=== PATIENT | female | born 1945 | race Hispanic/Latino ===

== ENCOUNTER → 2018-07-06 | Day surgery (SDC) | payer MEDICARE ==
[2018-07-02 12:32] LABS: BASOPHILS # (AUTO) 0.1 (0.0-0.1); BASOPHILS % 0.8 % (0.0-1.0); EOSINOPHILS # (AUTO) 0.6 (0.0-0.4); EOSINOPHILS % 6.9 % (0.0-6.0); HEMATOCRIT 42.5 % (34.2-44.1); HEMOGLOBIN 13.9 g/dL (12.0-16.0); LYMPHOCYTES # (AUTO) 3.7 (1.0-3.2); LYMPHOCYTES % 46.3 % (18.0-39.1); MEAN CORPUSCULAR HEMOGLOBIN 31.7 pg (28-32); MEAN CORPUSCULAR HGB CONC 32.7 g/dL (31-35); MEAN CORPUSCULAR VOLUME 96.8 fL (81-99); MONOCYTES # (AUTO) 0.7 (0.2-0.8); MONOCYTES % 8.4 % (4.4-11.3); NEUTROPHILS % 37.3 % (38.7-80.0); PLATELET COUNT 217 x10e3/uL (140-360); RED BLOOD COUNT 4.39 x10e6/uL (3.6-5.1); RED CELL DISTRIBUTION WIDTH 14.1 % (11.7-14.4)
--- NOTE | 2018-07-02 13:21 | Diagnostic Imaging Report ---
Frontal and lateral views of the chest. HISTORY: PREOP PROTOCOL COMPARISON: None available. DISCUSSION: Soft tissue attenuation partially limits sensitivity of the exam. Lungs: Mildly prominent nonspecific diffuse interstitial markings. No evidence of a consolidative pneumonia or pulmonary alveolar edema. Pleura: No pleural effusion or pneumothorax. Heart and mediastinum: The cardiomediastinal silhouette appears unremarkable. Bones: No acute osseous lesion. Partially visualized cervical spine fixation hardware and the left neck metallic surgical clips. IMPRESSION: No acute radiographic abnormality. Signed by: Dr. Leopoldo Griffith D.O., M.M.M. on 07/02/2018 1:18 PM
[~2018-07-06] MED LIST: ATENOLOL; DEXAMETHASONE SOD PHOS INJ 4 MG/ML VIAL ONE; FENTANYL CITRATE/PF 100MCG/2 ML INJ ONE; FOLIC ACID; HUMIRA SQ; KETOROLAC TROMETHAMINE 30 MG/ML VIAL ONE; LIDOCAINE HCL 2% LOCAL INJ 5 ML SDV VIAL INJ ONE; MIDAZOLAM HCL 2 MG/2 ML VIAL ONE; PREDNISONE; PROPOFOL IV EMULSION 10 MG/ML 20 ML VIAL ONE; SEVOFLURANE INHAL SOLN 250 ML PEN BTL ONE; Z.0.METHOTREXATE2.5; Z.0.ORACEA40 MG
--- OUTSIDE RECORDS SUMMARY | 2018-07-06 09:54 | XMS REPORT | Continuity of Care Document ---
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 Diagnosis 06/16/2018 Jozef Lopez Degenerative disc disease, cervical Active Problem 06/16/2018 Jozef Lopez Degenerative disc disease, lumbar Active Problem 06/16/2018 Jozef Lopez Anterolisthesis Active Problem 06/16/2018 Jozef Lopez Back pain Active Diagnosis 04/29/2018 Jozef Lopez Shoulder pain, left Active Diagnosis 11/25/2017 Jozef Lopez Skin rash Active Diagnosis 08/22/2017 Jozef Lopez Accidental fall on or from other stairs or steps Active Diagnosis 08/04/2015 Jozef Lopez Encounter for long-term use of other high-risk medications Active Diagnosis 10/19/2015 Jozef Lopez Rheumatoid arthritis of multiple sites without organ or system involvement with positive rheumatoid factor Active Diagnosis 10/19/2015 Jozef Lopez Hypothyroidism Active Diagnosis 10/18/2015 Jozef Lopez Vitamin D deficiency Active Diagnosis 10/18/2015 Jozef Lopez [facility] use of opiate analgesic Active Diagnosis 04/22/2016 Jozef Lopez Medications Medication Details Route Status Patient Instructions Ordering Provider Order Date Source Clobetasol Propionate 1 application to affected area Externally Active 0.05 % Externally Twice a day Valles 09/10/2018 Jozef Lopez Imuran as directed Orally Active 50 MG Orally once a day [place] 06/15/2018 Jozef Lopez Humira INJECT 0.8ML SUBCUTANEOUSLY EVERY 2 WEEKS NA Active 40 MG/0.8ML Suzanne 06/09/2018 Jozef Lopez PredniSONE 1 tablet Orally Active 2.5 MG Orally Once a day Lopez 03/16/2018 Jozef Lopez Plaquenil 1 tablet with food or milk Orally Active 200 MG Orally Twice a day Lopez 03/16/2018 Jozef Lopez Arava 1 tablet Orally Active 20 MG Orally Once a day Valles 03/16/2018 Jozef Jessica Gabapentin 1 capsule before bedtime Orally Active 300 MG Orally Twice a day [place] 02/16/2018 Jozef Lopez Hydrocodone-Acetaminophen 1 tablet as needed Orally Active 10- 325 MG Orally TID [place] 02/13/2018 Jozef Lopez Medrol Dose Armand as directed Orally Active 4mg Orally once a day [place] 01/14/2018 Jozef Lopez PredniSONE 1 tablet Orally Active 2.5 MG Orally Once a day [place] 11/18/2017 Jozef Lopez Folic Acid 1 tablet Orally Active 1 MG Orally Once a day Valles 11/18/2017 Jozef Lopez Plaquenil 1 tablet NA Active 200 Twice a day Valles 11/18/2017 Jozef Lopez Triamcinolone Acetonide 1 application to affected area Externally Active 0.1 % Externally Twice a day Valles 11/16/2017 Jozef Lopez Clobetasol Propionate 1 application to affected area Externally Active 0.05 % Externally Twice a day Suzanne 11/16/2017 Jozef Lopez Methotrexate take 4 tablets Orally Active 2.5 MG Orally once a week Suzanne 10/16/2017 Jozef Jessica Hydrocodone-Acetaminophen 1 tablet as needed Orally Active 5- 325 MG Orally TID [place] 09/19/2017 Jozef Lopez Triamcinolone Acetonide 1 application to affected area Externally Active 0.1 % Externally Twice a day Valles 08/20/2017 Jozef Lopez Arava 1 tablet Orally Active 20 MG Orally Once a day [place] 08/17/2017 Jozef Lopez Folic Acid 1 tablet Orally Active 1 Orally Once a day [place] 08/17/2017 Jozef Lopez PredniSONE 1 tablet with food or milk Orally Active 2.5 MG Orally Once a day Valles 08/17/2017 Jozef Lopez Plaquenil 1 tablet NA Active 200 Twice a day Valles 08/17/2017 Jozef Lopez Medrol Dose Armand as directed Orally Active 4mg Orally once a day [place] 07/20/2017 Jozefoscar Lopez Hydrocodone-Acetaminophen 1 tablet as needed Orally Active 10- 325 MG Orally tid Suzanne 07/04/2017 Jozef Lopez Hydrocodone-Acetaminophen 1 tablet as needed Orally Active 10- 325 MG Orally tid [place] 06/18/2017 Jozef Lopez Hydrocodone-Acetaminophen 1 tablet as needed Orally Active 10- 325 MG Orally tid [place] 05/16/2017 Jozef Lopez Fosamax 1 tablet Orally Active 70 MG Orally [place] 04/16/2017 Jozef Lopez Fosamax 1 tablet Orally Active 70 MG Orally once a day Valles 04/16/2017 Jozef Lopez Medrol Dose Armand as directed Orally Active 4mg Orally once a day [place]es 02/03/2017 Jozef Ordazer Hydrocodone-Acetaminophen 1 tablet as needed Orally Active 10- 325 MG Orally every 6 hrs Valles 12/31/2016 Jozef Lopez Hydrocodone-Acetaminophen 1 tablet as needed Orally Active 10- 325 MG Orally every 6 hrs Valles 11/27/2016 Jozef Ordazer Fosamax 1 tablet Orally Active 70 MG Orally Once a week Vall[place] 10/13/2016 Jozef Lopez Plaquenil 1 tablet with food or milk Orally Active 200 MG Orally Once a day [place] 10/13/2016 Jozef Lopez Folic Acid 1 tablet Orally Active 1 MG Orally Once a day [place]es 10/13/2016 Jozef Lopez Medrol Dose Armand as directed Orally Active 4mg Orally once a day [place]es 08/14/2016 Jozef Lopez Hydrocodone-Acetaminophen 1 tablet as needed Orally Active 10- 325 MG Orally every 6 hrs Valles 05/16/2016 Jozef Lopez Triamcinolone Acetonide 1 application to affected area Externally Active 0.025 % Externally Twice a day Valles 04/16/2016 Jozef Lopez Arava 1 tablet Orally Active 20 MG Orally Once a day Valles 02/19/2016 Jozef Lopez Hydrocodone-Acetaminophen 1 tablet as needed Orally Active 10- 325 MG Orally every 6 hrs Valles 02/03/2016 Jozef Lopez Hydrocodone-Acetaminophen 1 tablet as needed Orally Active 10- 325 MG Orally every 6 hrs Valles 09/07/2015 Jozef Lopez Fosamax 1 tablet Orally Active 70 MG Orally once a week Valles 07/09/2015 Jozef Lopez Humira 0.8 ml Subcutaneous Active 40 MG/0.8ML Subcutaneous q2wk Suzanne 06/18/2015 Jozef Lopez Medrol (Armand) as directed Orally Active 4 MG Orally as diercted Valles 04/05/2015 Jozef Ordazer Folic Acid 1 tablet Orally Active 1 Orally Once a day [place] Jozef Ordazer Arava 1 tablet Orally Active 20 MG Orally Once a day [place] Jozef Lopez Atenolol 1/2 tablet Orally Active 25 MG Orally Once a day [place] Jozef Ordazer Plaquenil 1 tablet with food or milk Orally Active 200 MG Orally Twice a day [place] Jozef Lopez Humira INJECT 0.8ML SUBCUTANEOUSLY EVERY 2 WEEKS NA Active 40 every two weeks [place] Jozef Lopez Amoxicillin 1 capsule Orally Active 500 MG Orally every 12 hrs [place] Jozef Lopez Aspirin 1 tablet Orally Active 81 MG Orally Once a day [place] Joezf Lopez PredniSONE 1 tablet with food or milk Orally Active 2.5 MG Orally Once a day [place] Jozef Lopez Medrol Dose Armand as directed Orally Active 4mg Orally once a day [place] Jozef Lopez Atenolol 1/2 tablet Orally Active 25 MG Orally Once a day [place] Jozef Lopez Aspirin 1 tablet Orally Active 81 MG Orally Once a day [place] Jozef Lopez Hydrocodone-Acetaminophen 1 tablet as needed Orally Active 10- 325 MG Orally every 6 hrs [place] Jozef Lopez Hydrocodone-Acetaminophen 1 tablet as needed Orally Active 5- 325 MG Orally TID [place] Jozef Lopez PredniSONE 1 tablet Orally Active 2.5 MG Orally Once a day [place] Jozef Lopez Folic Acid 1 tablet Orally Active 1 MG Orally Once a day [place] Jozef Lopez Hydrocodone-Acetaminophen 1 tablet as needed Orally Active 10- 325 MG Orally TID [place] Jozef Lopez Fosamax 1 tablet Orally Active 70 MG Orally Once a week [place] Jozef Lopez Triamcinolone Acetonide 1 application to affected area Externally Active 0.1 % Externally Twice a day [facility] Jozef Lopez Methotrexate take 4 tablets Orally Active 2.5 MG Orally once a week [place] Jozef Lopez Diclofenac Sodium 1 tablet with food or milk Orally Active 75 MG Orally once a day [place] Jozef Lopez Levocetirizine Dihydrochloride 1 tablet in the evening Orally Active 5 MG Orally Once a day [place] Jozef Lopez Arava 1 tablet Orally Active 20 MG Orally Once a day [place] Jozef Lopez PredniSONE 1 tablet Orally Active 20 MG Orally twice a day [place] Jozef Lopez Clobetasol Propionate 1 application to affected area Externally Active 0.05 % Externally Twice a day [place] Jozef Lopez Gabapentin 1 capsule before bedtime Orally Active 300 MG Orally Twice a day [place] oJzef Lopez Humira 0.8 ml Subcutaneous Active 40 MG/0.8ML Subcutaneous Every two weeks [place] Jozef Lopez Tizanidine HCl 1 tablet as needed Orally Active 2 MG Orally prn [place] Jozef Lopez Plaquenil 1 TABLET Orally Active 200 MG Orally twice a day [place] Jozef Lopez Methotrexate TAKE 8 TABLETS BY MOUTH ONCE WEEKLY NA Active 2.5 [place] Jozef Lopez Folic Acid 1 tablet Orally Active 1 MG Orally Once a day [place] Jozef Lopez Hydrocodone-Acetaminophen take one tablet Orally Active 10-325 Orally every 6 hrs [place] Jozef Lopez Prilosec 1 capsule Orally Active 40 MG Orally Once a day [place] Jozef Lopez Fosamax 1 tablet Orally Active 70 MG Orally once a week [place] Jozef Lopez Allergies, Adverse Reactions, Alerts Substance Category Reaction Severity Reaction type Status Date Reported Comments Source Methotrexate Adverse Reaction Info Not Available Adverse Reaction Active 06/15/2018 Jozef Lopez azulfidine Adverse Reaction Info Not Available Adverse Reaction Active 06/15/2018 Jozef Lopez Plaquenil Adverse Reaction Eye changes Adverse Reaction Active 06/15/2018 Jozef Lopez Leflunomide Adverse Reaction rash Adverse Reaction Active 06/15/2018 Jozef Lopez Immunizations Immunization Date Given Site Status Last Updated Comments Source Results Order Name Results Value Reference Range Date Interpretation Comments Source Vital Signs Vital Sign Value Date Comments Source Weight 136 06/15/2018 Jozef Lopez Height 57 06/15/2018 Jozef Lopez Temperature Oral (F) 97.6 F 06/15/2018 Jozef Lopez Heart Rate 78 06/15/2018 Jozef Lopez Diastolic (mm Hg) 72 06/15/2018 Jozef Lopez Systolic (mm Hg) 122 06/15/2018 Jozef Lopez Weight 139 05/13/2018 Jozef Lopez Height 57 05/13/2018 Jozef Lopez Temperature Oral (F) 97.0 F 05/13/2018 Jozef Lopez Heart Rate 70 05/13/2018 Jozef Lopez Diastolic (mm Hg) 70 05/13/2018 Jozef Lopez Systolic (mm Hg) 124 05/13/2018 Jozef Lopez Weight 139.6 04/13/2018 Jozef Lopez Height 57 04/13/2018 Jozef Lopez Temperature Oral (F) 97.7 F 04/13/2018 Jozef Lopez Heart Rate 72 04/13/2018 Jozef Lopez Diastolic (mm Hg) 72 04/13/2018 Jozef Lopez Systolic (mm Hg) 118 04/13/2018 Jozef Lopez Weight 140.9 03/16/2018 Jozef Lopez Height 57 03/16/2018 Jozef Lopez Temperature Oral (F) 98.0 F 03/16/2018 Jozef Lopez Heart Rate 70 03/16/2018 Jozef Lopez Diastolic (mm Hg) 70 03/16/2018 Jozef Lopez Systolic (mm Hg) 122 03/16/2018 Jozef Lopez Weight 143.3 02/16/2018 Jozef Lopez Height 57 02/16/2018 Jozef Lopez Temperature Oral (F) 97.3 F 02/16/2018 Jozef Lopez Heart Rate 74 02/16/2018 Jozef Lopez Diastolic (mm Hg) 70 02/16/2018 Jozef Lopez Systolic (mm Hg) 124 02/16/2018 Jozef Lopez Weight 144.3 01/14/2018 Jozef Lopez Height 58 01/14/2018 Jozef Lopez Temperature Oral (F) 97.6 F 01/14/2018 Jozef Lopez Heart Rate 76 01/14/2018 Joezf Lopez Diastolic (mm Hg) 78 01/14/2018 Jozef Lopez Systolic (mm Hg) 122 01/14/2018 Jozef Lopez Weight 146 11/16/2017 Jozef Lopez Height 57 11/16/2017 Jozef Lopez Temperature Oral (F) 97.8 F 11/16/2017 Jozef Lopez Heart Rate 72 11/16/2017 Jozef Lopez Diastolic (mm Hg) 76 11/16/2017 Jozef Lopez Systolic (mm Hg) 110 11/16/2017 Jozef Lopez Weight 148 10/16/2017 Jozef Lopez Height 57 10/16/2017 Jozef Lopez Temperature Oral (F) 98.2 F 10/16/2017 Jozef Lopez Heart Rate 72 10/16/2017 Jozef Lopez Diastolic (mm Hg) 80 10/16/2017 Jozef Lopez Systolic (mm Hg) 112 10/16/2017 Jozef Lopez Weight 150.4 08/20/2017 Jozef Lopez Height 58 08/20/2017 Jozef Lopez Temperature Oral (F) 97.1 F 08/20/2017 Jozef Lopez Heart Rate 68 08/20/2017 Jozef Lopez Diastolic (mm Hg) 68 08/20/2017 Jozef Lopez Systolic (mm Hg) 100 08/20/2017 Jozef Lopez Weight 150 07/20/2017 Jozef Lopez Height 57.5 07/20/2017 Joezf Lopez Temperature Oral (F) 97.0 F 07/20/2017 Jozef Lopez Heart Rate 76 07/20/2017 Jozef Lopez Diastolic (mm Hg) 72 07/20/2017 Jozef Lopez Systolic (mm Hg) 110 07/20/2017 Jozef Lopez Weight 151.4 06/18/2017 Jozef Lopez Height 57.5 06/18/2017 Jozef Lopez Temperature Oral (F) 98.2 F 06/18/2017 Jozef Lopez Heart Rate 78 06/18/2017 Jozef Lopez Diastolic (mm Hg) 70 06/18/2017 Jozef Lopez Systolic (mm Hg) 106 06/18/2017 Jozef Lopez Weight 153.3 05/19/2017 Jozef Lopez Height 58 05/19/2017 Jozef Lopez Temperature Oral (F) 96.6 F 05/19/2017 Jozef Lopez Heart Rate 74 05/19/2017 Jozef Lopez Diastolic (mm Hg) 70 05/19/2017 Jozef Lopez Systolic (mm Hg) 102 05/19/2017 Jozef Lopez Weight 153.5 04/16/2017 Jozef Lopez Height 58 04/16/2017 Jozef Lopez Temperature Oral (F) 97.8 F 04/16/2017 Jozef Lopez Heart Rate 66 04/16/2017 Jozef Lopez Diastolic (mm Hg) 68 04/16/2017 Jozef Lopez Systolic (mm Hg) 104 04/16/2017 Jozef Lopez Weight 154 03/06/2017 Jozef Lopez Height 58 03/06/2017 Jozef Lopez Temperature Oral (F) 97.3 F 03/06/2017 Jozef Lopez Heart Rate 64 03/06/2017 Jozef Lopez Diastolic (mm Hg) 70 03/06/2017 Jozef Lopez Systolic (mm Hg) 102 03/06/2017 Jozef Lopez Weight 154.5 02/03/2017 Jozef Lopez Height 58 02/03/2017 Jozef Lopez Temperature Oral (F) 97.2 F 02/03/2017 Jozef Lopez Heart Rate 72 02/03/2017 Jozef Lopez Diastolic (mm Hg) 68 02/03/2017 Jozef Lopez Systolic (mm Hg) 100 02/03/2017 Jozef Lopez Weight 158 12/31/2016 Jozef Lopez Height 57 12/31/2016 Jozef Lopez Temperature Oral (F) 98.5 F 12/31/2016 Jozef Lopez Heart Rate 80 12/31/2016 Jozef Lopez Diastolic (mm Hg) 62 12/31/2016 Jozef Lopez Systolic (mm Hg) 112 12/31/2016 Jozef Lopez Weight 155 12/01/2016 Jozef Lopez Height 57 12/01/2016 Jozef Lopez Temperature Oral (F) 97.8 F 12/01/2016 Jozef Lopez Heart Rate 80 12/01/2016 Jozef Lopez Diastolic (mm Hg) 62 12/01/2016 Jozef Lopez Systolic (mm Hg) 118 12/01/2016 Jozef Lopez Weight 155 10/28/2016 Jozef Lopez Height 57 10/28/2016 Jozef Lopez Temperature Oral (F) 98.1 F 10/28/2016 Jozef Lopez Heart Rate 80 10/28/2016 Jozef Lopez Diastolic (mm Hg) 80 10/28/2016 Jozef Lopez Systolic (mm Hg) 124 10/28/2016 Jozef Lopez Weight 155 08/14/2016 Jozef Lopez Height 58 08/14/2016 Jozef Lopez Temperature Oral (F) 97.6 F 08/14/2016 Jozef Lopez Heart Rate 74 08/14/2016 Jozef Lopez Diastolic (mm Hg) 72 08/14/2016 Jozef Lopez Systolic (mm Hg) 118 08/14/2016 Jozef Lopez Weight 157.1 04/16/2016 Jozef Lopez Height 58 04/16/2016 Jozef Lopez Temperature Oral (F) 98.0 F 04/16/2016 Jozef Lopez Heart Rate 72 04/16/2016 Jozef Lopez Diastolic (mm Hg) 70 04/16/2016 Jozef Lopez Systolic (mm Hg) 118 04/16/2016 Jozef Lopez Weight 156 02/19/2016 Jozef Lopez Height 57 02/19/2016 Jozef Lopez Temperature Oral (F) 98.2 F 02/19/2016 Jozef Lopez Heart Rate 72 02/19/2016 Jozef Lopez Diastolic (mm Hg) 74 02/19/2016 Jozef Lopez Systolic (mm Hg) 116 02/19/2016 Jozef Lopez Weight 154 01/10/2016 Jozef Lopez Height 57 01/10/2016 Jozef Lopez Temperature Oral (F) 97.5 F 01/10/2016 Jozef Lopez Heart Rate 72 01/10/2016 Jozef Lopez Diastolic (mm Hg) 72 01/10/2016 Jozef Lopez Systolic (mm Hg) 118 01/10/2016 Jozef Lopez Weight 152.3 12/13/2015 Jozef Lopez Height 58.5 12/13/2015 Jozef Lopez Temperature Oral (F) 97.4 F 12/13/2015 Jozef Lopez Heart Rate 76 12/13/2015 Jozef Lopez Diastolic (mm Hg) 72 12/13/2015 Jozef Lopez Systolic (mm Hg) 128 12/13/2015 Jozef Lopez Weight 154 11/13/2015 Jozef Lopez Height 57 11/13/2015 Jozef Lopez Temperature Oral (F) 98.6 F 11/13/2015 Jozef Lopez Heart Rate 72 11/13/2015 Jozef Lopez Diastolic (mm Hg) 72 11/13/2015 Jozef Lopez Systolic (mm Hg) 114 11/13/2015 Jozef Lopez Weight 155 10/08/2015 Jozef Lopez Height 58 10/08/2015 Jozef Lopez Temperature Oral (F) 98.1 F 10/08/2015 Jozef Lopez Heart Rate 66 10/08/2015 Jozef Lopez Diastolic (mm Hg) 72 10/08/2015 Jozef Lopez Systolic (mm Hg) 112 10/08/2015 Jozef Lopez Weight 160 08/08/2015 Jozef Lopez Height 58 08/08/2015 Jozef Lopez Temperature Oral (F) 98.2 F 08/08/2015 Jozef Lopez Heart Rate 64 08/08/2015 Jozef Lopez Diastolic (mm Hg) 70 08/08/2015 Jozef Lopez Systolic (mm Hg) 120 08/08/2015 Jozef Lopez Weight 157 05/07/2015 Jozef Lopez Height 57 05/07/2015 Jozef Lopez Temperature Oral (F) 98.6 F 05/07/2015 Jozef Lopez Heart Rate 80 05/07/2015 Jozef Lopez Diastolic (mm Hg) 78 05/07/2015 Jozef Lopez Systolic (mm Hg) 130 05/07/2015 Jozef Lopez Encounters Location Location Details Encounter Type Encounter Number Reason For Visit Attending Provider ADM Date DC Date Status Source Ajith Lopez MD [facility], [place] [id number] 11/01/2013 11/01/2013 Jozef Lopez MD [facility], [place] [id number] 11/01/2013 11/01/2013 Jozef Lpoez MD [facility] [place] [id number] 11/01/2013 11/01/2013 Jozef Lopez MD [facility] [place] [id number] 11/01/2013 11/01/2013 Jozef Lopez MD [facility] [place] [id number] 11/01/2013 11/01/2013 Jozef Lopez MD [facility] [place] [id number] 11/01/2013 11/01/2013 Jozef Lopez MD [facility] [place] [id number] 11/01/2013 11/01/2013 Jozef Lopez MD [facility] [place] [id number] 11/01/2013 11/01/2013 Jozef Lopez MD [facility] [place] [id number] 11/01/2013 11/01/2013 Jozef Lopez MD [facility] [place] [id number] 11/01/2013 11/01/2013 Jozef Lopez MD [facility] [place] [id number] 11/01/2013 11/01/2013 Jozef Lopez MD [facility] [place] [id number] 11/01/2013 11/01/2013 Jozef Lopez MD [facility] [place] [id number] 11/01/2013 11/01/2013 Jozef Lopez MD [facility] [place] [id number] 11/01/2013 11/01/2013 Jozef Lopez MD [facility] [place] [id number] 11/01/2013 11/01/2013 Jozef Lopez MD [facility] [place] [id number] 11/01/2013 11/01/2013 Jozef Lopez MD [facility] [place] [id number] 11/01/2013 11/01/2013 Jozef Lopez MD [facility] [place] [id number] 11/01/2013 11/01/2013 Jozef Lopez MD MRI [id number] 12/01/2013 12/01/2013 Jozef Lopez MD MRI [id number] 12/01/2013 12/01/2013 Jozef Lopez MD MRI [id number] 12/01/2013 12/01/2013 Jozef Lopez MD MRI [id number] 12/01/2013 12/01/2013 Jozef Lopez MD MRI [id number] 12/01/2013 12/01/2013 Jozef Lopez MD MRI [id number] 12/01/2013 12/01/2013 Jozef Lopez MD MRI [id number] 12/01/2013 12/01/2013 Jozef Lopez MD MRI [id number] 12/01/2013 12/01/2013 Jozef Lopez MD MRI [id number] 12/01/2013 12/01/2013 Jozef Lopez MD MRI [id number] 12/01/2013 12/01/2013 Jozef Lopez MD MRI [id number] 12/01/2013 12/01/2013 Jozef Lopez MD MRI [id number] 12/01/2013 12/01/2013 Jozef Lopez MD MRI [id number] 12/01/2013 12/01/2013 Jozef Lpoez MD MRI [id number] 12/01/2013 12/01/2013 Jozef Lopez MD [facility] [id number] 12/01/2013 12/01/2013 Jozef Lopez MD [facility] [id number] 12/01/2013 12/01/2013 Jozef Lopez MD [facility] [id number] 12/01/2013 12/01/2013 Jozef Lopez MD [facility] [id number] 12/01/2013 12/01/2013 Jozef Lopez MD 2m f/u [id number] 01/03/2014 01/03/2014 Jozef Lopez MD 2m f/u [id number] 01/03/2014 01/03/2014 Jozef Lopez MD 2m f/u [id number] 01/03/2014 01/03/2014 Jozef Lopez MD 2m f/u [id number] 01/03/2014 01/03/2014 Jozef Lopez MD 2m f/u [id number] 01/03/2014 01/03/2014 Jozef Lopez MD 2m f/u [id number] 01/03/2014 01/03/2014 Jozef Lopez MD 2m f/u [id number] 01/03/2014 01/03/2014 Jozef Lopez MD 2m f/u [id number] 01/03/2014 01/03/2014 Jozef Lopez MD 2m f/u [id number] 01/03/2014 01/03/2014 Jozef Lopez MD 2m f/u [id number] 01/03/2014 01/03/2014 Jozef Lopez MD 2m f/u [id number] 01/03/2014 01/03/2014 Jozef Lopez MD 2m f/u [id number] 01/03/2014 01/03/2014 Jozef Lopez MD 2m f/u [id number] 01/03/2014 01/03/2014 Jozef Lopez MD 2m f/u [id number] 01/03/2014 01/03/2014 Jozef Lopez MD 2m f/u [id number] 01/03/2014 01/03/2014 Jozef Lopez MD 2m f/u [id number] 01/03/2014 01/03/2014 Jozef Lopez MD 2m f/u [id number] 01/03/2014 01/03/2014 Jozef Lopez MD 2m f/u [id number] 01/03/2014 01/03/2014 Jozef Lopez MD [facility] [id number] 01/18/2014 01/18/2014 Jozef Lopez MD MRI [id number] 01/18/2014 01/18/2014 Jozef Lopez MD [facility] [id number] 01/18/2014 01/18/2014 Jozef Lopez MD [facility] [id number] 01/18/2014 01/18/2014 Jozef Lopez MD MRI [id number] 01/18/2014 01/18/2014 Jozef Lopez MD [facility] [id number] 01/18/2014 01/18/2014 Jozef Lopez MD MRI [id number] 01/18/2014 01/18/2014 Jozef Lopez MD MRI [id number] 01/18/2014 01/18/2014 Jozef Lopez MD MRI [id number] 01/18/2014 01/18/2014 Jozef Lopez MD MRI [id number] 01/18/2014 01/18/2014 Jozef Lopez MD MRI [id number] 01/18/2014 01/18/2014 Jozef Lopez MD MRI [id number] 01/18/2014 01/18/2014 Jozef Lopez MD MRI [id number] 01/18/2014 01/18/2014 Jozef Lopez MD MRI [id number] 01/18/2014 01/18/2014 Jozef Lopez MD MRI [id number] 01/18/2014 01/18/2014 Jozef Lopez MD MRI [id number] 01/18/2014 01/18/2014 Jozef Lopez MD MRI [id number] 01/18/2014 01/18/2014 Jozef Lopez MD MRI [id number] 01/18/2014 01/18/2014 Jozef Lopez MD Refill- Folic acid [id number] 01/30/2014 01/30/2014 Jozef Lopez MD Refill- Folic acid [id number] 01/30/2014 01/30/2014 Jozef Lopez MD Refill- Folic acid [id number] 01/30/2014 01/30/2014 Jozef Lopez MD Refill- Folic acid [id number] 01/30/2014 01/30/2014 Jozef Lopez MD Refill- Folic acid [id number] 01/30/2014 01/30/2014 Jozef Lopez MD Refill- Folic acid [id number] 01/30/2014 01/30/2014 Jozef Lopez MD Refill- Folic acid [id number] 01/30/2014 01/30/2014 Jozef Lopez MD Refill- Folic acid [id number] 01/30/2014 01/30/2014 Jozef Lopez MD Refill- Folic acid [id number] 01/30/2014 01/30/2014 Jozef Lopez MD Refill- Folic acid [id number] 01/30/2014 01/30/2014 Jozef Lopez MD Refill- Folic acid [id number] 01/30/2014 01/30/2014 oJzef Lopez MD Refill- Folic acid [id number] 01/30/2014 01/30/2014 Jozef Lopez MD Refill- Folic acid 373cn7p3-l1b9-4r05-k98y-h1h8321smpsp 01/30/2014 01/30/2014 Jozef Lopez MD Refill- Folic acid 2i986i9i-9iwq-9286-w3as-9a261f7i5101 01/30/2014 01/30/2014 Jozef Lopez MD Refill- Folic acid 32809gi7-5869-0u2i-3931-19wq9rs9821n 01/30/2014 01/30/2014 Jozef Lopez MD Refill- Folic acid 5ry552g0-w28o-1065-ma18-2d4kj55025kt 01/30/2014 01/30/2014 Jozef Lopez MD Refill- Folic acid tskn1287-pd83-7cud-e421-u3107615w39f 01/30/2014 01/30/2014 Jozef Lopez MD Refill- Folic acid [id number]-3ls411033892 01/30/2014 01/30/2014 Jozef Lopez MD 2m f/u z2572qg9-x405-97u3-j35q-292vy005t335 03/08/2014 03/08/2014 Jozef Lopez MD 2m f/u 86t26f9u-r4z8-06s5-1n6w-z41y2363dx4b 03/08/2014 03/08/2014 Jozef Lopez MD 2m f/u 457n5891-1kre-86y6-wmx6-l9gux70h3743 03/08/2014 03/08/2014 Jozef Lopez MD 2m f/u 13ikjgj6-f2mc-45nm-3644-f264v505yr24 03/08/2014 03/08/2014 Jozef Lopez MD 2m f/u 40578814-bir0-5k1f-ojn0-63ywt01vocs1 03/08/2014 03/08/2014 Jozef Lopez MD 2m f/u 57grhr49-3kc3-0354-a4s9-2l93q534y79y 03/08/2014 03/08/2014 Jozef Lopez MD 2m f/u 7f1r9j39-96d9-085h-3f61-170y57ik465j 03/08/2014 03/08/2014 Jozef Lopez MD 2m f/u fc68344p-55pr-2n84-f74y-5w0y649cppp9 03/08/2014 03/08/2014 Jozef Lopez MD 2m f/u 8tj31i4h-8326-26jr-h401-n25w70hzb066 03/08/2014 03/08/2014 Jozef Lopez MD 2m f/u g9y201y5-2497-621w-r05m-c01335595756 03/08/2014 03/08/2014 Jozef Lopez MD 2m f/u s9x076g3-3485-005g-4wps-2192z683ez06 03/08/2014 03/08/2014 Jozef Lopez MD 2m f/u 653s70vc-9nmp-4gu8-1452-d7l60z894539 03/08/2014 03/08/2014 Jozef Lopez MD 2m f/u z422y1jz-7224-9225-0oo2-68jl704o1098 03/08/2014 03/08/2014 Jozef Lopez MD 2m f/u cno96u41-2dx2-1180-prj7-0h3586473242 03/08/2014 03/08/2014 Jozef Lopez MD 2m f/u 5z8pqukd-m689-96xz-h6l8-82klo71cp91b 03/08/2014 03/08/2014 Jozef Lopez MD 2m f/u 26w00308-9109-4o90-izvp-p3n8m549f76h 03/08/2014 03/08/2014 Jozef Lopez MD 2m f/u b6hmc621-sbf8-4664-80c9-28dk756n44pg 03/08/2014 03/08/2014 Jozef Lopez MD 2m f/u 12plaf6p-e9u3-679e-27zr-d167jzky37y7 03/08/2014 03/08/2014 Jozef Lopez MD scallop shucker pain 3d98kelz-15ag-2pm8-p7f0-bt06206h370c 04/29/2014 04/29/2014 Jozef Lopez MD scallop shucker pain n404n5p1-3x29-1378-rhst-33a3t7899j4b 04/29/2014 04/29/2014 Jozef Lopez MD scallop shucker pain z306c503-ar0l-8038-i26p-0576ki0518cn 04/29/2014 04/29/2014 Jozef Lopez MD scallop shucker pain r85m964t-7669-5441-4qc6-190i5w33lb39 04/29/2014 04/29/2014 Jozef Lopez MD scallop shucker pain r8a7259c-w158-4750-1c0t-p4h9943q6p0v 04/29/2014 04/29/2014 Jozef Lopez MD scallop shucker pain b0j4066l-v94q-3881-ex3f-4t351zazcn5h 04/29/2014 04/29/2014 Jozef Lopez MD scallop shucker pain 50435dc7-n0s7-6081-7g19-00828vr4n933 04/29/2014 04/29/2014 Jozef Lopez MD scallop shucker pain 0182n36c-i018-36e1-577k-7886m6297833 04/29/2014 04/29/2014 Jozef Lopez MD scallop shucker pain 7i05r2a6-409d-75e1-u42z-od15o6n8440u 04/29/2014 04/29/2014 Jozef Lopez MD scallop shucker pain 6d64379w-89e4-2u72-t107-977wiolt89x5 04/29/2014 04/29/2014 Jozef Lopez MD scallop shucker pain o63tq121-6td8-1s90-r697-568g11646j50 04/29/2014 04/29/2014 Jozef Lopez MD scallop shucker pain 5458041r-4x62-6d49-39a6-68rxw5042s40 04/29/2014 04/29/2014 Jozef Lopez MD scallop shucker pain 6c6vq23o-l0v1-3fsa-y194-60i781o64353 04/29/2014 04/29/2014 Jozef Lopez MD scallop shucker pain 53v6b997-058a-0u61-02zo-r6q3m142i72d 04/29/2014 04/29/2014 Jozef Lopez MD scallop shucker pain 2ps93755-u23k-91oh-0677-964c6txc4m2c 04/29/2014 04/29/2014 Jozef Lopez MD scallop shucker pain 77kf2vw7-02o7-2874-j833-ap495x3i5838 04/29/2014 04/29/2014 Jozef Lopez MD scallop shucker pain 3hte918o-57o7-7l4h-50ey-f999e8vkv207 04/29/2014 04/29/2014 Jozef Lopez MD scallop shucker pain 82n9u3ho-7359-057d-9mzz-uwyu7khd5uu6 04/29/2014 04/29/2014 Jozef Lopez MD Refill- Hydrocodone irxsfdv7-5d0i-58766f1e-1974-n526-9h84e095chp3 05/01/2014 05/01/2014 Jozef Lopez MD Refill- Hydrocodone qwkc502x-9l86-4l14-p439-l46f119f35f3 05/01/2014 05/01/2014 Jozef Lopez MD Refill- Hydrocodone 87el3bsj-0wqe-6g59-723a-2z55029sv1t2 05/01/2014 05/01/2014 Jozef Lopez MD Refill- Hydrocodone 3avf0mm2-q3q3-67z2-w177-l1b68372634o 05/01/2014 05/01/2014 Jozef Lopez MD Refill- Hydrocodone gk802i6f-vr59-76v9-x331-8584hxqdf176 05/01/2014 05/01/2014 Jozef Lopez MD Refill- Hydrocodone 031i23i6-m89w-0ip1-7vk0-2142y6h12h81 05/01/2014 05/01/2014 Jozef Lopez MD Refill- Hydrocodone yv65ou11-8fs0-5v89-5u0u-5h9ru0l7cd0q 05/01/2014 05/01/2014 Jozef Lopez MD Refill- Hydrocodone e6p04zn5-p355-3zoo-t4c6-r355o3p5t7nf 05/01/2014 05/01/2014 Jozef Lopez MD Refill- Hydrocodone 9496r52f-1996-4507-1h57-545wk680l330 05/01/2014 05/01/2014 Jozef Lopez MD Refill- Hydrocodone 4357914e-p2za-7c3b-z725-76ca89ob35l9 05/01/2014 05/01/2014 Jozef Lopez MD Refill- Hydrocodone 9u98r289-92d2-7p42-pv0h-g89d0rt78e33 05/01/2014 05/01/2014 Jozef Lopez MD Refill- Hydrocodone 5ij3261a-015d-9922-70c5-73253ez76dwq 05/01/2014 05/01/2014 Jozef Lopez MD Refill- Hydrocodone 742h61bd-l954-3lk1-0e9a-550ss5by9lxg 05/01/2014 05/01/2014 Jozef Lopez MD Refill- Hydrocodone 1566388w-8r82-3yq3-t0g4-4mas5f838ptb 05/01/2014 05/01/2014 Jozef Lopez MD Refill- Hydrocodone 2o4xf71z-34j3-7sf7-9978-yjcq8w600666 05/01/2014 05/01/2014 Jozef Lopez MD Refill- Hydrocodone 0p2d9pt0-8y74-5u30-56cg-0n30725e7749 05/01/2014 05/01/2014 Jozef Lopez MD Refill- Hydrocodone 71w5126i-650u-472n-0845-b231ts2c86te 05/01/2014 05/01/2014 Jozef Lopez MD Refill- Hydrocodone 2c75n2ku-7l70-469g-872g-zuc94z1nm8xz 05/01/2014 05/01/2014 Jozef Lopez MD Unknown [id number] 05/02/2014 05/02/2014 Jozef Lopez MD Unknown [id number] 05/02/2014 05/02/2014 Jozef Lopez MD Unknown [id number] 05/02/2014 05/02/2014 Jozef Lopez MD Unknown [id number] 05/02/2014 05/02/2014 Jozef Lopez MD Unknown [id number] 05/02/2014 05/02/2014 Jozef Lopez MD Unknown [id number] 05/02/2014 05/02/2014 Jozef Lopez MD Unknown [id number] 05/02/2014 05/02/2014 Jozef Lopez MD Unknown [id number] 05/02/2014 05/02/2014 Jozef Lopez MD Unknown [id number] 05/02/2014 05/02/2014 Jozef Lopez MD Unknown [id number]-[id number] 05/02/2014 05/02/2014 Jozef Lopez MD Unknown [id number] 05/02/2014 05/02/2014 Jozef Lopez MD Unknown [id number] 05/02/2014 05/02/2014 Jozef Lopez MD Unknown [id number] 05/02/2014 05/02/2014 Jozef Lopez MD Unknown [id number] 05/02/2014 05/02/2014 Jozef Lopez MD Unknown [id number] 05/02/2014 05/02/2014 Jozef Lopez MD Unknown [id number] 05/02/2014 05/02/2014 Jozef Lopez MD Unknown [id number] 05/02/2014 05/02/2014 Jozef Lopez MD Unknown [id number] 05/02/2014 05/02/2014 Jozef Lopez MD MRI Bi Wrist [id number]-6m67-p85t0i4l583w 05/05/2014 05/05/2014 Jozef Lopez MD MRI Bi Wrist [id number]-[id number]-jn78-38v8259zym96 05/05/2014 05/05/2014 Jozef Lopez MD MRI Bi Wrist [id number]-j700-1155-n552-v771x39nh4y1 05/05/2014 05/05/2014 Jozef Lopez MD MRI Bi Wrist 42se9a00-y498-0ne8-9fe4-kvq090aq6861 05/05/2014 05/05/2014 Jozef Lopez MD MRI Bi Wrist [id number]-x840-n38z0580z7ni 05/05/2014 05/05/2014 Jozef Lopez MD MRI Bi Wrist 01q37uuy-35cl-893f-d950-2284o739df9i 05/05/2014 05/05/2014 Jozef Lopez MD MRI Bi Wrist 578qv8qk-4qm2-9409-q157-19339378l541 05/05/2014 05/05/2014 Jozef Lopez MD MRI Bi Wrist 53yf1xg3-9n6k-8250-5040-f915555ws04o 05/05/2014 05/05/2014 Jozef Lopez MD MRI Bi Wrist 97w4f9i9-75i5-463d-85rr-p3aoz613m1d9 05/05/2014 05/05/2014 Jozef Lopez MD MRI Bi Wrist 48v9k9g4-00s0-226u-84j8-2omk883r71l4 05/05/2014 05/05/2014 Jozef Lopez MD MRI Bi Wrist [id number]-24m9-7h6f-z99s2fy6iaib 05/05/2014 05/05/2014 Jozef Lopez MD MRI Bi Wrist [id number] 05/05/2014 05/05/2014 Jozef Lopez MD MRI Bi Wrist [id number]-t3ts-57q1317nqq2y 05/05/2014 05/05/2014 Jozef Lopez MD MRI Bi Wrist [id number]-r751-2329k4or91pp 05/05/2014 05/05/2014 Jozef Lopez MD MRI Bi Wrist w388s5z0-6la4-1325-760q-u64b8i7njie6 05/05/2014 05/05/2014 Jozef Lopez MD MRI Bi Wrist 8vqc98zp-s997-0279-4b2g-pj97d6t6p8f2 05/05/2014 05/05/2014 Jozef Lopez MD MRI Bi Wrist [id number]-k530cmc9vo9u 05/05/2014 05/05/2014 Jozef Lopez MD MRI Bi Wrist [id number]-xbv7-14edc26b03c1 05/05/2014 05/05/2014 Jozef Lopez MD 2m f/u jfgjy9f2-37g7-779l-w338-rt90ae900ok3 05/24/2014 05/24/2014 Jozef Lopez MD 2m f/u 6366y4t4-337l-8bn2-8k14-7d0876d030sn 05/24/2014 05/24/2014 Jozef Lopez MD 2m f/u 3a93t481-8i0d-74f4-tf89-e0883chji257 05/24/2014 05/24/2014 Jozef Lopez MD 2m f/u eh9f180d-z2bg-991a-c141-128y2336hr7y 05/24/2014 05/24/2014 Jozef Lopez MD 2m f/u [id number]-2740-24rge8jy8z01 05/24/2014 05/24/2014 Jozef Lopez MD 2m f/u 5789s972-d556-81ag-z8r6-c19217s71dos 05/24/2014 05/24/2014 Jozef Lopez MD 2m f/u jvnk6892-i652-90ra-ihc7-8d6645tjo8h7 05/24/2014 05/24/2014 Jozef Lopez MD 2m f/u g2991dhu-8z0z-2b1u-q687-01h797t0006t 05/24/2014 05/24/2014 Jozef Lopez MD 2m f/u 3br7j94e-122j-2q2j-e2ty-2802m215b9f2 05/24/2014 05/24/2014 Jozef Lopez MD 2m f/u 0q428hbm-571x-6980-61d7-fa51h15q48t2 05/24/2014 05/24/2014 Jozef Lopez MD 2m f/u [id number]-c518-68a8538i69y8 05/24/2014 05/24/2014 Jozef Lopez MD 2m f/u 7d7tz159-52ig-813z-5h91-0k96fea6pp6c 05/24/2014 05/24/2014 Jozef Lopez MD 2m f/u 789864af-d06v-5509-3olq-7d6m6p1zt65s 05/24/2014 05/24/2014 Jozef Lopez MD 2m f/u 6il3586j-93g9-527k-3y59-nb2231u2d242 05/24/2014 05/24/2014 Jozef Lopez MD 2m f/u 2v431069-13e1-98m7-6232-0le1h6553356 05/24/2014 05/24/2014 Jozef Lopez MD 2m f/u iyu56137-19m0-6460-e1c2-2jo3s8n56742 05/24/2014 05/24/2014 Jozef Lopez MD 2m f/u 0szh62x7-442t-185m-fk75-j77752134q23 05/24/2014 05/24/2014 Jozef Lopez MD 2m f/u c6f4x8b6-c37k-6rr0-73t9-12283050ft91 05/24/2014 05/24/2014 Jozef Lopez MD Triplicate-- Hydrocodone 06/01/14 7pq71qhf-950g-4cqc-2505-75b476k06eq9 05/29/2014 05/29/2014 Jozef Lopez MD Triplicate-- Hydrocodone 06/01/14 1044dr89-43v4-7047-62a7-385919eh7qg1 05/29/2014 05/29/2014 Jozef Lopez MD Triplicate-- Hydrocodone 06/01/14 9en28867-i4d2-8v0r-1ha2-286dlp6vu3o2 05/29/2014 05/29/2014 Jozef Lopez MD Triplicate-- Hydrocodone 06/01/14 o9p9d38p-6136-0a07-dw05-1o7d99hml70y 05/29/2014 05/29/2014 Jozef Lopez MD Triplicate-- Hydrocodone 06/01/14 68145o02-4225-72cp-86gc-8486308r7724 05/29/2014 05/29/2014 Jozef Lopez MD Triplicate-- Hydrocodone 06/01/14 624090hx-9ke6-1639-gil8-9c9p0242231l 05/29/2014 05/29/2014 Jozef Lopez MD Triplicate-- Hydrocodone 06/01/14 bb8l3952-emk2-96d9-e00j-01296y035aj5 05/29/2014 05/29/2014 Jozef Lopez MD Triplicate-- Hydrocodone 06/01/14 36s269ud-9806-3utt-y8n5-396908z2q07r 05/29/2014 05/29/2014 Jozef Lopez MD Triplicate-- Hydrocodone 06/01/14 84c42e08-o6r8-34m1-q2i0-2v044il76a5o 05/29/2014 05/29/2014 Jozef Lopez MD Triplicate-- Hydrocodone 06/01/14 osz99le2-8hv0-4757-0hjg-zx3zl11r1hxy 05/29/2014 05/29/2014 Jozef Lopez MD Triplicate-- Hydrocodone 06/01/14 g95e00em-9483-434p-h510-d1ri484t8qrx 05/29/2014 05/29/2014 Jozef Lopez MD Triplicate-- Hydrocodone 06/01/14 dm440a65-6j46-6843-myo2-h3229im8m43d 05/29/2014 05/29/2014 Jozef Lopez MD Triplicate-- Hydrocodone 06/01/14 c9326xba-820v-989e-4783-667h9q61p12v 05/29/2014 05/29/2014 Jozef Lopez MD Triplicate-- Hydrocodone 06/01/14 4p3d0151-9490-285v-d2o5-xr059x503bud 05/29/2014 05/29/2014 Jozef Lopez MD Triplicate-- Hydrocodone 06/01/14 88if59n0-062l-4409-4m56-00u1lez6o79k 05/29/2014 05/29/2014 Jozef Lopez MD Triplicate-- Hydrocodone 06/01/14 9l5gg413-4hwg-2n5s-4r84-639ufiw7152d 05/29/2014 05/29/2014 Jozef Lopez MD Triplicate-- Hydrocodone 06/01/14 783t4213-vdtd-5y55-4e3u-4u4j3l1v8oiv 05/29/2014 05/29/2014 Jozef Lopez MD Triplicate-- Hydrocodone 06/01/14 lwwa5173-86s3-3g68-6m9v-4d4811789976 05/29/2014 05/29/2014 Jozef Lopez MD Refill--hydrocodone 58a2f168-s370-80za-5n83-9g6r497pi2b8 06/30/2014 06/30/2014 Jozef Lopez MD Refill--hydrocodone 1422b598-9103-9jml-4tf3-4854ra304p53 06/30/2014 06/30/2014 Jozef Lopez MD Refill--hydrocodone 39ib5s8g-v2p6-7b97-v043-8f6evoj08e0t 06/30/2014 06/30/2014 Jozef Lopez MD Refill--hydrocodone 243u9892-6f61-7c6i-2317-41m681i6l77f 06/30/2014 06/30/2014 Jozef Lopez MD Refill--hydrocodone 79d50h50-3196-359p-1552-161582eq0n4r 06/30/2014 06/30/2014 Jozef Lopez MD Refill--hydrocodone c27a2pi1-8zq5-529t-48n2-0dtspn793834 06/30/2014 06/30/2014 Jozef Lopez MD Refill--hydrocodone 94jzm23b-0356-033s-d34w-s687p3083962 06/30/2014 06/30/2014 Jozef Lopez MD Refill--hydrocodone o71804y4-z95a-5f6i-b87t-4zs9srgo1qj6 06/30/2014 06/30/2014 Jozef Lopez MD Refill--hydrocodone 22b084qu-9973-9e9o-1e3c-19m93555x300 06/30/2014 06/30/2014 Jozef Lopez MD Refill--hydrocodone 5go7ms2c-h21v-925m-u76e-h14j160u033k 06/30/2014 06/30/2014 Jozef Lopez MD Refill--hydrocodone l891249d-dde8-97s4-494x-710vsv54k762 06/30/2014 06/30/2014 Jozef Lopez MD Refill--hydrocodone 9l579327-j0n5-03r5-gb77-k2x4h62h3bnn 06/30/2014 06/30/2014 Jozef Lopez MD Refill--hydrocodone 904c92mg-260a-58t2-7y1n-51jk3g1o5h44 06/30/2014 06/30/2014 Jozef Lopez MD Refill--hydrocodone 26py2643-l9wl-8w3f-8u8c-t3u70926c94p 06/30/2014 06/30/2014 Jozef Lopez MD Refill--hydrocodone 73878i36-b63n-762y-1nvn-iar066252reo 06/30/2014 06/30/2014 Jozef Lopez MD Refill--hydrocodone 12i55i6b-gt9m-5kl0-09wd-679eq9001n7n 06/30/2014 06/30/2014 Jozef Lopez MD Refill--hydrocodone 29v2y08l-5584-1jez-jy6d-kq1j5bn803p9 06/30/2014 06/30/2014 Jozef Lopez MD Refill--hydrocodone 8082921o-9t08-2m27-e0wx-5vraj488w168 06/30/2014 06/30/2014 Jozef Lopez MD 6 WK F/U 6oqdh916-nek5-1t1m-b7tf-45j233c80w19 07/31/2014 07/31/2014 Jozef Lopez MD 6 WK F/U 47w35w5g-6538-03f8-7208-y2587569b424 07/31/2014 07/31/2014 Jozef Lopez MD 6 WK F/U 8e756p8b-0ky6-7427-154z-uo1d7ml24b3w 07/31/2014 07/31/2014 Jozef Lopez MD 6 WK F/U 1z7ec9w8-07n7-3735-2c75-mum77luq794j 07/31/2014 07/31/2014 Jozef Lopez MD 6 WK F/U 394jy958-8036-4216-2954-b15615f10658 07/31/2014 07/31/2014 Jozef Lopez MD 6 WK F/U 15j10104-o0xp-014j-4456-1ztv71bs44pn 07/31/2014 07/31/2014 Jozef Lopez MD 6 WK F/U hz3i64qu-8i50-4fs2-5163-ex20p9h1d0f1 07/31/2014 07/31/2014 Jozef Lopez MD 6 WK F/U b48l303t-edn0-431k-0570-we8kuz9h4xaz 07/31/2014 07/31/2014 Jozef Lopez MD 6 WK F/U 4p003d10-8861-6bn9-zjo6-623n898568oe 07/31/2014 07/31/2014 Jozef Lopez MD 6 WK F/U 138ha0dm-b22m-195c-9s54-vtc2j82ect76 07/31/2014 07/31/2014 Jozef Lopez MD 6 WK F/U 04h94p93-772q-6235-4r2v-sn9z7000h676 07/31/2014 07/31/2014 Jozef Lopez MD 6 WK F/U c304p542-3qvk-85a1-x335-094t5y096a4t 07/31/2014 07/31/2014 Jozef Lopez MD RA study [id number]-[id number] 07/31/2014 07/31/2014 Jozef Lopez MD RA study [id number] 07/31/2014 07/31/2014 Jozef Lopez MD RA study [id number]-38a6-zkp939699htp 07/31/2014 07/31/2014 Jozef Lopez MD RA study [id number] 07/31/2014 07/31/2014 Jozef Lopez MD RA study [id number] 07/31/2014 07/31/2014 Jozef Lopez MD RA study [id number] 07/31/2014 07/31/2014 Jozef Lopez MD RA study [id number] 07/31/2014 07/31/2014 Jozef Lopez MD RA study [id number] 07/31/2014 07/31/2014 Jozef Lopez MD RA study [id number] 07/31/2014 07/31/2014 Jozef Lopez MD RA study 2p5j0i8w-[id number]-h4r629v7ye6x 07/31/2014 07/31/2014 Jozef Lopez MD RA study 5azkwhy5-[id number]-gw7d-0v4ix58ziw33 07/31/2014 07/31/2014 Jozef Lopez MD RA study [id number] 07/31/2014 07/31/2014 Jozef Lopez MD 6 WK F/U 64w45u3p-m4jm-39x0-vx8a-326e7i24a4w8 07/31/2014 07/31/2014 Jozef Lopez MD 6 WK F/U gb645n9y-8u80-6b06-5hs7-3896y407i770 07/31/2014 07/31/2014 Jozef Lopez MD 6 WK F/U x9oi22wa-185t-2p05-e55q-67w54h1574g5 07/31/2014 07/31/2014 Jozef Lopez MD 6 WK F/U 1x9j1xi8-d123-02sv-kt40-do6a151tg07w 07/31/2014 07/31/2014 Jozef Lopez MD 6 WK F/U b914v89t-0092-7409-pk38-8199y7lds45h 07/31/2014 07/31/2014 Jozef Lopez MD 6 WK F/U [id number]-n6qp-h040i0y6w4xf 07/31/2014 07/31/2014 Jozef Lopez MD RA study [id number] 07/31/2014 07/31/2014 Jozef Lopez MD RA study [id number] 07/31/2014 07/31/2014 Jozef Lopez MD RA study [id number] 07/31/2014 07/31/2014 Jozef Lopez MD RA study [id number] 07/31/2014 07/31/2014 Jozef Lopez MD RA study [id number] 07/31/2014 07/31/2014 Jozef Lopez MD RA study [id number] 07/31/2014 07/31/2014 Jozef Lopez MD [facility] [id number] 07/31/2014 07/31/2014 Jozef Lopez MD Unknown [id number] 07/31/2014 07/31/2014 Jozef Lopez MD Unknown [id number] 07/31/2014 07/31/2014 Jozef Lopez MD Unknown [id number] 07/31/2014 07/31/2014 Jozef Lopez MD Unknown [id number] 07/31/2014 07/31/2014 Jozef Lopez MD Unknown [id number] 07/31/2014 07/31/2014 Jozef Lopez MD Unknown [id number] 07/31/2014 07/31/2014 Jozef Lopez MD Unknown [id number] 07/31/2014 07/31/2014 Jozef Lopez MD Unknown [id number] 07/31/2014 07/31/2014 Jozef Lopez MD Unknown [id number] 07/31/2014 07/31/2014 Jozef Lopez MD Unknown [id number] 07/31/2014 07/31/2014 Jozef Lopez MD Unknown [id number] 07/31/2014 07/31/2014 Jozef Lopez MD Unknown [id number] 07/31/2014 07/31/2014 Jozef Lopez MD Unknown [id number] 07/31/2014 07/31/2014 Jozef Lopez MD Unknown [id number] 07/31/2014 07/31/2014 Jozef Lopez MD Unknown [id number] 07/31/2014 07/31/2014 Jozef Lopez MD Unknown [id number] 07/31/2014 07/31/2014 Jozef Lopez MD Unknown [id number] 07/31/2014 07/31/2014 MD Estuardo Henriquez [id number] 08/03/2014 08/03/2014 MD Estuardo Henriquez [id number]-4271-xm1e-83xmp36wr1h1 08/03/2014 08/03/2014 MD Estuardo Henriquez [id number] 08/03/2014 08/03/2014 MD Estuardo Henriquez [id number] 08/03/2014 08/03/2014 MD Estuardo Henriquez [id number]-1x39-ft87-k8x09phx47as 08/03/2014 08/03/2014 MD Estuardo Henriquez [id number]-652q-2964-15i19xt8v81k 08/03/2014 08/03/2014 MD Estuardo Henriquez [id number]-zroy-0s7n-d45b-30b9y52f66sq 08/03/2014 08/03/2014 MD Estuardo Henriquez [id number]-4638-66a7-n631-4u5qvdexp3b5 08/03/2014 08/03/2014 MD Estuardo Henriquez [id number]-[id number] 08/03/2014 08/03/2014 MD Estuardo Henriquez [id number]-pb4q-0451-htu4-0q35b23c5951 08/03/2014 08/03/2014 MD Estuardo Henriquez [id number]-w315-7vi1r8jsic8y 08/03/2014 08/03/2014 MD Estuardo Henriquez [id number]-[id number] 08/03/2014 08/03/2014 MD Estuardo Henriquez [id number]-131ckb3w07i7 08/03/2014 08/03/2014 MD Estuardo Henriquez [id number]-[id number]-be17-hjh408bxwox3 08/03/2014 08/03/2014 MD Estuardo Henriquez [id number]-fv7cp0z6d459 08/03/2014 08/03/2014 MD Estuardo Henriquez [id number]-[id number]-f3ng-5q2kzvl5983c 08/03/2014 08/03/2014 MD Estuardo Henriquez [id number]-uy131z00c4i0 08/03/2014 08/03/2014 MD Estuardo Henriquez [id number]-i0i6-2g032c26r7vz 08/03/2014 08/03/2014 Jozef Lopez MD MRI [id number] 08/14/2014 08/14/2014 Jozef Lopez MD MRI ufsqb938-yr89-5qg8-64ex-[id number] 08/14/2014 08/14/2014 Jozef Lopez MD MRI tu4t53t7-e6g3-4179-g156-0zvg64yu497r 08/14/2014 08/14/2014 Jozef Lopez MD MRI [id number]-06z1-9020-tz47-of706b1qld4a 08/14/2014 08/14/2014 Jozef Lopez MD MRI [id number]-6784-k672-100yu7s04522 08/14/2014 08/14/2014 Jozef Lopez MD MRI [id number]-[id number] 08/14/2014 08/14/2014 Jozef Lopez MD MRI [id number]-25o6-m289-xn52o7j447mz 08/14/2014 08/14/2014 Jozef Lopez MD MRI [id number] 08/14/2014 08/14/2014 Jozef Lopez MD [facility] [id number] 08/14/2014 08/14/2014 Jozef Lopez MD [facility] [id number]-[id number] 08/14/2014 08/14/2014 Jozef Lopez MD [facility] [id number]-[id number] 08/14/2014 08/14/2014 Jozef Lopez MD MRI [id number] 08/14/2014 08/14/2014 MD JOE Henriquez [id number]-ysjl-o1w5y3939t0w 08/14/2014 08/14/2014 Jozef Lopez MD [facility] [id number]-f102-1451px133cyo 08/14/2014 08/14/2014 Jozef Lopez MD [facility] [id number]-[id number] 08/14/2014 08/14/2014 Jozef Lopez MD [facility] [id number]-[id number]-j29z-[id number] 08/14/2014 08/14/2014 Jozef Lopez MD [facility] [id number]-[id number] 08/14/2014 08/14/2014 Jozef Lopez MD MRI [id number]-e2f3-64zx-2n13-fi324x73l1ps 08/14/2014 08/14/2014 Jozef Lopez MD [facility] f/u [id number]-612f-32mj-45e8-hyf2a8s9wjp0 09/01/2014 09/01/2014 Jozef Lopez MD [facility] f/u 6ev2oe3e-n092-332t-00q5-5bo59wrb65rs 09/01/2014 09/01/2014 Jozef Lopez MD [facility] f/u uutm2546-y0q6-221m-6f2i-c5j18ts8i213 09/01/2014 09/01/2014 Jozef Lopez MD [facility] f/u 29io12fb-[id number]-[id number] 09/01/2014 09/01/2014 Jozef Lopez MD [facility] f/u [id number]-8w99-6k655s34-0m53-i55r-c84669gj3o4d 09/01/2014 09/01/2014 Jozef Lopez MD [facility] f/u onjadm54-atqx-3458-80r0-0q5p994h7q65 09/01/2014 09/01/2014 Jozef Lopez MD [facility] f/u 6p0k6u5c-3976-82kj-yw7e-kgz4690r0520 09/01/2014 09/01/2014 Jozef Lopez MD [facility] f/u 1s7f8h5g-39b7-7232-n14r-5212u70239s3 09/01/2014 09/01/2014 Jozef Lopez MD [facility] f/u 88450j3p-7j04-1286-ofv6-f545p5n7oo5v 09/01/2014 09/01/2014 Jozef Lopez MD [facility] f/u n8pe5ci3-to68-7oj9-[id number] 09/01/2014 09/01/2014 Jozef Lopez MD [facility] f/u 38816oq6-21u0-2m2h-92y8-62h2qqy61p6n 09/01/2014 09/01/2014 MD andrew Henriquez f/u [id number]-[id number] 09/01/2014 09/01/2014 Jozef Lopez MD [facility] f/u 396rq530-n48f-8vfb-5217-23314l87hxkm 09/01/2014 09/01/2014 Jozef Lopez MD [facility] f/u [id number]-p4201l1dc50q 09/01/2014 09/01/2014 Jozef Lopez MD [facility] f/u [id number]-f957qu4453y0 09/01/2014 09/01/2014 Jozef Lopez MD [facility] f/u um0i90bx-xa9e-4of0-9799-n3g0203b9eyh 09/01/2014 09/01/2014 Jozef Lopez MD [facility] f/u [id number]-lyj11v2944f5 09/01/2014 09/01/2014 Jozef Lopez MD [facility] f/u -[id number]-3g54-8zf9-5587l1t6bw00 09/01/2014 09/01/2014 Jozef Lopez MD f/u 8jq62u5n-zd02-9j03-1710-n50093s29411 10/05/2014 10/05/2014 Jozef Lopez MD f/u 4xf84tz2-4832-78g3-q165-3isc8m22atc1 10/05/2014 10/05/2014 Jozef Lopez MD 2m f/u [id number]-[id number] 10/05/2014 10/05/2014 Jozef Lopez MD f/u [id number]-227j-9hd1-07y0-05d434ts91v8 10/05/2014 10/05/2014 Jozef Lopez MD 2m f/u 6w2f2s92-0573-3i03-forv-04g21527b881 10/05/2014 10/05/2014 Jozef Lopez MD 2m f/u 8om8fz3w-cp87-1m36-x213-579004325y66 10/05/2014 10/05/2014 Jozef Lopez MD 2m f/u [id number]-g46o-0r05-z3x5-82789179z25t 10/05/2014 10/05/2014 Jozef Lopez MD 2m f/u k6n515jf-r3cq-2y87-or1r-xxi7505644sr 10/05/2014 10/05/2014 Jozef Lopez MD 2m f/u r0b2wt22-98gl-6188-3g84-l2k50f8920s0 10/05/2014 10/05/2014 Jozef Lopez MD 2m f/u 63214kd6-377n-0944-0811-yi1462kr29u2 10/05/2014 10/05/2014 Jozef Lopez MD 2m f/u [id number]-e992-393u-h1k9-v241674l6sd6 10/05/2014 10/05/2014 Jozef Lopez MD 2m f/u lp13s0pb-074g-3584-ub59-4996q055412i 10/05/2014 10/05/2014 Jozef Lopez MD 2m f/u 97i0324z-1i71-63y7-5g9k-2gm4151192t4 10/05/2014 10/05/2014 Jozef Lopez MD 2m f/u r071f1u4-vp96-148s-6pi5-f6059625e893 10/05/2014 10/05/2014 Jozef Lopez MD 2m f/u [id number]-389y-s0h6-5d28v9814993 10/05/2014 10/05/2014 Jozef Lopez MD 2m f/u [id number]972 10/05/2014 10/05/2014 Jozef Lopez MD 2m f/u 89fq5298-0jo1-80o6-k379-x2026mm6r503 10/05/2014 10/05/2014 Jozef Lopez MD 2m f/u n7308y5w-5u6j-7488-t5k6-80603a9m77w1 10/05/2014 10/05/2014 Jozef Lopez MD refill folic acid [id number]-76c5-848o-9679-e77b7l746bt0 10/22/2014 10/22/2014 Jozef Lopez MD refill folic acid 505r758i-1276-36e5-eqk4-jv3985c70v05 10/22/2014 10/22/2014 Jozef Lopez MD refill folic acid 6n2f3aud-j22a-8of7-k7v7-2000n949ew53 10/22/2014 10/22/2014 Jozef Lopez MD refill folic acid 1id2mm18-462b-3556-wp9x-0l6k7o93syhg 10/22/2014 10/22/2014 oJzef Lopez MD refill folic acid 4205231i-q4t5-700t-sc30-7x81z73253k2 10/22/2014 10/22/2014 Jozef Lopez MD refill folic acid i5489764-7nsw-9g99-43cb-4368w9e11d3l 10/22/2014 10/22/2014 Jozef Lopez MD refill folic acid [id number]-h1e4-273u6qd55128 10/22/2014 10/22/2014 Jozef Lopez MD refill folic acid 196h2he9-98o8-55k8-76j3-2a9q0650468t 10/22/2014 10/22/2014 Jozef Lopez MD refill folic acid 4k429274-4100-0624-7z6o-0c0fxdj3t06p 10/22/2014 10/22/2014 Jozef Lopez MD refill folic acid 558j94g2-ue3z-307h-6v29-7q41l56tc4y9 10/22/2014 10/22/2014 Jozef Lopez MD refill folic acid esm68l7y-w37i-9437-8oqm-z1c0krk53150 10/22/2014 10/22/2014 Jozef Lopez MD refill folic acid [id number]-re0e-6k7r-m4jb-945172nmk31e 10/22/2014 10/22/2014 Jozef Lopez MD refill folic acid 036ur17r-8f80-3295-0978-1cj2u0y01skm 10/22/2014 10/22/2014 Jozef Lopez MD refill folic acid 57246933-252w-95x7-rb7k-5e2b3085155k 10/22/2014 10/22/2014 Jozef Lopez MD refill folic acid y9u2feu3-7j0h-5m40-cz2m-931068942b69 10/22/2014 10/22/2014 Jozef Lopez MD refill folic acid 7pd260b2-6r16-5ch6-7863-6efway399b90 10/22/2014 10/22/2014 Jozef Lopez MD refill folic acid 304a3299-lc9x-4421-ksa4-121wd9339976 10/22/2014 10/22/2014 Jozef Lopez MD refill folic acid 949ss246-jw5j-4e4w-h367-f88z847b1117 10/22/2014 10/22/2014 Jozef Lopez MD Hydrocodone Issue 3a41ez51-833x-1292-vtb7-028oa2q97455 10/25/2014 10/25/2014 Jozef Lopez MD Hydrocodone Issue 3s8844e3-5xzl-7656-096w-nc2o5deil831 10/25/2014 10/25/2014 Jozef Lopez MD Hydrocodone Issue 664u06uj-ws29-9322-gezu-9w3566115936 10/25/2014 10/25/2014 Jozef Lopez MD Hydrocodone Issue vb4798t8-661w-4x87-byz4-r74gfb7m4vp9 10/25/2014 10/25/2014 Jozef Lopez MD Hydrocodone Issue 20ey2j09-0k44-489b-12v9-90he320ic82v 10/25/2014 10/25/2014 Jozef Lopez MD Hydrocodone Issue q6580x0t-6jfj-02af-ize1-z3v79024r364 10/25/2014 10/25/2014 Jozef Lopez MD Hydrocodone Issue pj0hry8m-k05r-0919-4qd1-71a316r57847 10/25/2014 10/25/2014 Jozef Lopez MD Hydrocodone Issue 809lg1o5-1494-89sf-1964-4a692cn045du 10/25/2014 10/25/2014 Jozef Lopez MD Hydrocodone Issue 680q26v6-3259-23n5-3p0f-ydxts26rrcr1 10/25/2014 10/25/2014 Jozef Lopez MD Hydrocodone Issue 8iwg2b8c-0y7o-89zj-8746-770h3077yg7f 10/25/2014 10/25/2014 Jozef Lopez MD Hydrocodone Issue x4kz6rwz-i14t-6b01-8f29-d74a143pw994 10/25/2014 10/25/2014 Jozef Lopez MD Hydrocodone Issue 0n22a6ns-h345-71n0-91b4-w985l0h028jb 10/25/2014 10/25/2014 Jozef Lopez MD Hydrocodone Issue 534m05ih-5041-37o6-9euv-u6163460as54 10/25/2014 10/25/2014 Jozef Lopez MD Hydrocodone Issue a9592k61-0ys0-25tu-0sv9-ti516tk87f54 10/25/2014 10/25/2014 Jozef Lopez MD Hydrocodone Issue 9zcf4z42-993l-9xf6-ufa7-cdlj3xeel71r 10/25/2014 10/25/2014 Jozef Lopez MD Hydrocodone Issue 349zb068-3l16-7474-20g0-48v437gs593r 10/25/2014 10/25/2014 Jozef Lopez MD Hydrocodone Issue [id number]6uc 10/25/2014 10/25/2014 Jozef Lopez MD Hydrocodone Issue -9283-18l3-hj37-4b4701p633e3 10/25/2014 10/25/2014 Jozef Lopez MD Unknown [id number]-31j3-h7kh55c9m618 12/08/2014 12/08/2014 Jozef Lopez MD Unknown [id number]-f41p-44f3-0ua5-6a1k8r94bn1n 12/08/2014 12/08/2014 Jozef Lopez MD Unknown [id number]-1l8d-7j8b18c60cj8 12/08/2014 12/08/2014 Jozef Lopez MD Unknown [id number] 12/08/2014 12/08/2014 Jozef Lopez MD Unknown [id number]-[id number] 12/08/2014 12/08/2014 Jozef Lopez MD Unknown [id number] 12/08/2014 12/08/2014 Jozef Lopez MD Unknown [id number]-[id number]-l4t1-8zwq49iwvw3j 12/08/2014 12/08/2014 Jozef Lopez MD Unknown [id number] 12/08/2014 12/08/2014 oJzef Lopez MD Unknown [id number]-ht2m-b2t8a302nesk 12/08/2014 12/08/2014 Jozef Lopez MD Unknown [id number]-y15o-31i53ao9996p 12/08/2014 12/08/2014 Jozef Lopez MD Unknown [id number] 12/08/2014 12/08/2014 Jozef Lopez MD Unknown [id number]-[id number] 12/08/2014 12/08/2014 Jozef Lopez MD research [id number]-88z3i7g41y87 12/08/2014 12/08/2014 Jozef Lpoez MD research kdw1yp9j-45u0-0922-95c3-698r49xur620 12/08/2014 12/08/2014 Jozef Lopez MD research [id number]-t4330mb1u389 12/08/2014 12/08/2014 Jozef Lopez MD research [id number]-wd91822si4s5 12/08/2014 12/08/2014 Jozef Lopez MD research [id number]-ui69-u28905j358zt 12/08/2014 12/08/2014 Jozef Lopez MD research ki15x1d7-3z55-27t2-kn5y-t112g0cg8568 12/08/2014 12/08/2014 Jozef Lopez MD research hz74gx84-72s1-48n6-n04i-3y2ti1223h6y 12/08/2014 12/08/2014 Jozef Lopez MD research 69gh7717-qxj6-33f5-elmx-76ni2c361bw9 12/08/2014 12/08/2014 Jzoef Lopez MD research 9mbg5z21-2605-04g7-b5t0-b687i18q86s9 12/08/2014 12/08/2014 Jozef Lopez MD research [id number]-7i62-2587-3de4-691a07984hkp 12/08/2014 12/08/2014 Jozef Lopez MD research qf98712e-x81z-23m8-kx63-abu8pp3253hq 12/08/2014 12/08/2014 Jozef Lopez MD research [id number]-4c9y-98w7-f340-p992p7785mvd 12/08/2014 12/08/2014 Jozef Lopez MD Unknown [id number] 12/08/2014 12/08/2014 Jozef Lopez MD Unknown [id number]-se0l-59zeq347j893 12/08/2014 12/08/2014 Jozef Lopez MD Unknown [id number] 12/08/2014 12/08/2014 Jozef Lopez MD Unknown [id number] 12/08/2014 12/08/2014 Jozef Lopez MD Unknown [id number] 12/08/2014 12/08/2014 Jozef Lopez MD Unknown [id number] 12/08/2014 12/08/2014 Jozef Lopez MD research [id number]-[id number] 12/08/2014 12/08/2014 Jozef Lopez MD research [id number]-tnc5-47303z786oo2 12/08/2014 12/08/2014 Jozef Lopez MD research [id number]-[id number] 12/08/2014 12/08/2014 Jozef Lopez MD research [id number]-q45e-206a-e4k9-gs8ctn663q02 12/08/2014 12/08/2014 Jozef Lopez MD research [id number]-2x0l-6b6x87k5x256 12/08/2014 12/08/2014 Jozef Lopez MD research 955uny71-eoxj-773y-x7d1-596w3m402808 12/08/2014 12/08/2014 Jozef Lopez MD Medication not sent g1vd551z-7h79-0gn6-5w47-7c444h34hjlo 12/08/2014 12/08/2014 Jozef Lopez MD Medication not sent hp1ke0a5-ld39-4h6y-4055-u05q5y494x9n 12/08/2014 12/08/2014 Jozef Lopez MD Medication not sent eq233q0u-d4oi-8w9n-u530-f8h0349i506r 12/08/2014 12/08/2014 Jozef Lopez MD Medication not sent [id number]-17ff-bvq88z3k1znd 12/08/2014 12/08/2014 Jozef Lopez MD Medication not sent [id number]-673t-8pf8-syl9-oi7qc17ic5jw 12/08/2014 12/08/2014 Jozef Lopez MD Medication not sent [id number]-q858-6d55648j9iw3 12/08/2014 12/08/2014 Jozef Lopez MD Medication not sent qb4d3p73-8696-31ds-1r38-0mb03z0k3292 12/08/2014 12/08/2014 Jozef Lopez MD Medication not sent [id number]-q795-03dc7f1x8l59 12/08/2014 12/08/2014 Jozef Lopez MD Medication not sent [id number]-o58d-499l-klel-2218z0662j40 12/08/2014 12/08/2014 Jozef Lopez MD Medication not sent y454q84z-4xr2-8w1t-97mn-6cn34b49szb1 12/08/2014 12/08/2014 Jzoef Lopez MD Medication not sent 04r0s033-5088-36zp-r591-84669s85e26u 12/08/2014 12/08/2014 Jozef Lopez MD Medication not sent 56m31e61-82h3-4v1a-155l-9h2i922pzfpy 12/08/2014 12/08/2014 Jozef Lopez MD Medication not sent 5j67x90g-883o-2rf0-u0v0-oj8k1774y9p9 12/08/2014 12/08/2014 Jozef Lopez MD Medication not sent [id number]-5u24-17m3-43j2w48e3o2f 12/08/2014 12/08/2014 Jozef Lopez MD Medication not sent o20687e7-mge2-5929-3d81-rz904w727m02 12/08/2014 12/08/2014 Jozef Lopez MD Medication not sent 683ks78i-011j-662n-51ee-5772f485s515 12/08/2014 12/08/2014 Jozef Lopez MD Medication not sent [id number]-p7k7-23d3-n2h9-e32ig33vx489 12/08/2014 12/08/2014 Jozef Lopez MD Medication not sent y8fq96g8-m4p2-1501-413l-ud1vi2vh78y4 12/08/2014 12/08/2014 Jozef Lopez MD 2m f/u i256w2w5-62w8-859d-08jo-99598444c587 01/04/2015 01/04/2015 Jozef Lopez MD 2m f/u 17599g64-v56l-1s27-kv3v-d6zg9bh877f8 01/04/2015 01/04/2015 Jozef Lopez MD 2m f/u v47l0559-4921-96fy-m387-3cz6966d9c07 01/04/2015 01/04/2015 Jozef Lopez MD 2m f/u 03869x21-lt1r-75v4-24np-997v75n222di 01/04/2015 01/04/2015 Jozef Lopez MD 2m f/u 8b2082l6-w7ki-066o-uy81-716ob9766u6f 01/04/2015 01/04/2015 Jozef Lopez MD 2m f/u 696818w2-jah9-3680-3x5y-a4731os6397c 01/04/2015 01/04/2015 Jozef Lopez MD 2m f/u qqpefqkr-p5g9-4y55z8l1-9v72-51h6-b88p59d122i0 01/04/2015 01/04/2015 Jozef Lopez MD 2m f/u 5204p645-6703-326k-y4s7-200o2372n90i 01/04/2015 01/04/2015 Jozef Lopez MD 2m f/u g3fo83e4-v212-7y8r-zkqf-2a595e02902w 01/04/2015 01/04/2015 Jozef Lopez MD 2m f/u v47bv80a-5fw0-75j1-32i0-97pxu8357i86 01/04/2015 01/04/2015 Jozef Lopez MD 2m f/u 8g84se89-2238-2640-u9x5-kl0wa0ue709n 01/04/2015 01/04/2015 Jozef Lopez MD 2m f/u 08315z0y-7sxx-5583-5k58-4a4q3dy0j3on 01/04/2015 01/04/2015 Jozef Lopez MD 2m f/u z7sn8uxe-6246-1b66-s09z-5h1v80t4a628 01/04/2015 01/04/2015 Jozef Lopez MD 2m f/u skc36219-x9u6-1k52-r4rh-1q5gx8gs467a 01/04/2015 01/04/2015 Jozef Lopez MD 2m f/u 67209tc0-7313-30d2-i163-13945041384d 01/04/2015 01/04/2015 Jozef Lopez MD 2m f/u c9643419-0423-32p1-0he7-9bg8e588t1pd 01/04/2015 01/04/2015 Jozef Lopez MD 2m f/u 24392469-889w-9774-l373-11b3006av45g 01/04/2015 01/04/2015 Jozef Lopez MD 2m f/u kwk4o718-27me-0hm3-4xv6-1540d83tnu46 01/04/2015 01/04/2015 Jozef Lopez MD DEXA pbdeh9w5-9hm7-9639-2pjd-l504tn3968o0 01/05/2015 01/05/2015 Jozef Lopez MD DEXA ph63w465-1fc7-7p79-tu0r-9h9ytjdh06f5 01/05/2015 01/05/2015 Jozef Lopez MD DEXA 32o40799-3382-31d7-xm9y-023m1249d3a2 01/05/2015 01/05/2015 Jozef Lopez MD DEXA 0uyywi9q-q8o4-0470-9s25-i6d811d9x8ja 01/05/2015 01/05/2015 Jozef Lopez MD DEXA 4k1rc246-0605-2e8d-tu28-504837qd2o8b 01/05/2015 01/05/2015 Jozef Lopez MD DEXA 78xwt5im-0517-38gg-hgkc-dlw8x7vh9h32 01/05/2015 01/05/2015 Jozef Lopez MD DEXA ou0p2805-9208-1kfy-g2jt-2b73qi4g2l20 01/05/2015 01/05/2015 Jozef Lopez MD DEXA h22j2t6f-71y1-916n-05d5-9v15053z6014 01/05/2015 01/05/2015 Jozef Lopez MD DEXA gic8657x-6023-37k3-8863-335ws58luxdt 01/05/2015 01/05/2015 Jozef Lopez MD DEXA e17i18v2-678e-4479-5f37-750o1tk264z8 01/05/2015 01/05/2015 Jozef Lopez MD DEXA 0e52678l-6232-9v19-1227-3flka413h095 01/05/2015 01/05/2015 Jozef Lopez MD DEXA 4ggy6007-3jjl-461x-4432-m7x30atn487w 01/05/2015 01/05/2015 Jozef Lopez MD DEXA 9v06u903-bo67-1103-7kd8-72z805zx7jlz 01/05/2015 01/05/2015 Jozef Lopez MD DEXA 91wq183m-l9b8-32g0-ron3-j64j75378g02 01/05/2015 01/05/2015 Jozef Lopez MD DEXA 4332100k-4f33-1269-0o11-hm7h6f83b759 01/05/2015 01/05/2015 Jozef Lopez MD DEXA 3escbsnr-mqc5-2a822m64-98k1-2h0ke1dm998q 01/05/2015 01/05/2015 Jozef Lopez MD DEXA [id number]-i5z79u2610ho 01/05/2015 01/05/2015 Jozef Lopez MD DEXA 60627n87-4p1s-9o98-8o9l-2uc64n29v01o 01/05/2015 01/05/2015 Jozef Lopez MD Refill/Flare 7b12n051-b7m6-0570-4shf-17r85m9k89p7 01/17/2015 01/17/2015 Jozef Lopez MD Refill/Flare p4vl7u64-okz8-1t4p-8193-q1g6012909q9 01/17/2015 01/17/2015 Jozef Lopez MD Refill/Flare 4q90j794-2o3y-15q6-91mi-61cm3289748v 01/17/2015 01/17/2015 Jozef Lopez MD Refill/Flare 5q4cf2vz-g812-605z-xis8-v4vive50r560 01/17/2015 01/17/2015 Jozef Lopez MD Refill/Flare x6jmf6uw-5n26-6p56-6126-205xwt16m4o9 01/17/2015 01/17/2015 Jozef Lopez MD Refill/Flare w25m00k9-3ftl-216w-n07j-16pu1c7d8w26 01/17/2015 01/17/2015 Jozef Lopez MD Refill/Flare b893p6sl-cw8s-0rw3-u84n-g0y293rbwj2k 01/17/2015 01/17/2015 Jozef Lopez MD Refill/Flare 28954372-8fl1-0863-wkkx-1f8zdfniy079 01/17/2015 01/17/2015 Jozef Lopez MD Refill/Flare 97ysc6dd-18fe-0f73-u9xr-y91j30t2s7g5 01/17/2015 01/17/2015 Jozef Lopez MD Refill/Flare rp1s5n1a-n7e8-8u28-c2aq-8a92654i50i1 01/17/2015 01/17/2015 Jozef Lopez MD Refill/Flare 52j0n924-17lm-3139-zm6z-ab8717597f93 01/17/2015 01/17/2015 Jozef Lopez MD Refill/Flare y7354015-2m84-4015-8538-6e1fhq9031a4 01/17/2015 01/17/2015 Jozef Lopez MD Refill/Flare 93d9224a-8r9v-4953-d282-397658362t1g 01/17/2015 01/17/2015 Jozef Lopez MD Refill/Flare 18380fra-sg06-5ue6-5ky1-75901866w819 01/17/2015 01/17/2015 Jozef Lopez MD Refill/Flare 6ih7g9y4-v414-8k7l-409q-36f19083nt46 01/17/2015 01/17/2015 Jozef Lopez MD Refill/Flare p6c62201-ft57-32vj-q210-10eoc90ie2b9 01/17/2015 01/17/2015 Jozef Lopez MD Refill/Flare noa9u869-gm86-6dc0-47f8-1i733wn7jiy8 01/17/2015 01/17/2015 Jozef Lopez MD Refill/Flare 098f164x-e724-4r7a-jvm1-872455w880yy 01/17/2015 01/17/2015 Jozef Lopez MD [facility] ly3x2if7-cy11-0180-6ybk-102t85c560e7 01/26/2015 01/26/2015 Jozef Lopez MD MRI 82g571s0-yw1b-7317-zq3y-0x10w4066hb0 01/26/2015 01/26/2015 Jozef Lopez MD MRI av62ewqr-z267-852t-hcb8-l03l2r97fo9v 01/26/2015 01/26/2015 Jozef Lopez MD MRI v77y8bby-04g1-7f48-uoqd-53z383132gv1 01/26/2015 01/26/2015 Jozef Lopez MD MRI m53365nq-2d1z-46rx-p1un-cq5207kk604x 01/26/2015 01/26/2015 Jozef Lopez MD MRI nma973p0-1r32-5k01-9441-0bol9d49596h 01/26/2015 01/26/2015 Jozef Lopez MD MRI 2d98i9s8-g5r8-557a-9u75-6s16o696cq82 01/26/2015 01/26/2015 Jozef Lopez MD MRI 67a8003r-62sr-6570-x20x-5r7ri9f99707 01/26/2015 01/26/2015 Jozef Lopez MD MRI 52481n9l-8301-9fs3-v875-1l92zic5r9f7 01/26/2015 01/26/2015 Jozef Lopez MD MRI 733v17gi-2i6e-17x5-nhv7-8464hyvqp2f7 01/26/2015 01/26/2015 Jozef Lopez MD MRI 23pn137a-3o6z-4o03-9171-267tce385772 01/26/2015 01/26/2015 Jozef Lopez MD MRI 7a8i927h-8414-01p2-93j9-zz7lm334964n 01/26/2015 01/26/2015 Jozef Lopez MD MRI 0d985656-7kk4-596q-o040-rvc2tpoy06zp 01/26/2015 01/26/2015 Jozef Lopez MD MRI b6aj0x0e-3115-0190-3ik0-893h3k419vz9 01/26/2015 01/26/2015 Jozef Lopez MD MRI 6024807k-81qr-3l62-k949-z3un94n1l9h5 01/26/2015 01/26/2015 Jozef Lopez MD MRI 713z938t-7kgo-2280-9069-xc0323c1r30t 01/26/2015 01/26/2015 Jozef Lopez MD MRI lky86q21-0461-0ew5-4761-8dxdc53m04c3 01/26/2015 01/26/2015 Jozef Lopez MD MRI h8c552i4-8u20-343z-h32o-0579n4975jf1 01/26/2015 01/26/2015 Jozef Lopez MD 2m f/u 2zv98m44-80xj-51t0-q322-7o4b0w29m190 02/05/2015 02/05/2015 Jozef Lopez MD Research n45zqpj7-66l4-1130-n589-lkp2k3500821 02/05/2015 02/05/2015 Jozef Lopez MD 2m f/u 9m60k174-w44x-2158-2a2s-8s7771611p80 02/05/2015 02/05/2015 Jozef Lopez MD Research xdn15ve3-5180-446r-xu1n-oatse0082s3s 02/05/2015 02/05/2015 Jozef Lopez MD 2m f/u 052957y7-4ofy-43g6-va9q-36mw7t313084 02/05/2015 02/05/2015 Jozef Lopez MD Research [id number]-ztf4-60nk-2rvi-9a745y59cx5u 02/05/2015 02/05/2015 Jozef Lopez MD 2m f/u zrx12a7f-176j-01zz-t319-oi336zxm2s4g 02/05/2015 02/05/2015 Jozef Lopez MD Research [id number] 02/05/2015 02/05/2015 Jozef Lopez MD 2m f/u 97902o9e-ta29-46ce-zn56-02q5w411e570 02/05/2015 02/05/2015 Jozef Lopez MD Research [id number]-4sy17ur47932 02/05/2015 02/05/2015 Jozef Lopez MD 2m f/u q779y86g-5428-421b-mxj1-97dgn1p53341 02/05/2015 02/05/2015 Jozef Lopez MD Research 493oc39k-h67v-5qa2-49j0-2rf42x708o7b 02/05/2015 02/05/2015 Jozef Lopez MD 2m f/u 3g1o8305-we5m-0w61-04x0-3p0y6730211k 02/05/2015 02/05/2015 Jozef Lopez MD Research 9g6625kv-14p6-274f-o918-89s2tc6j8832 02/05/2015 02/05/2015 Jozef Lopez MD 2m f/u el77xb53-1zs6-3m94-4981-1m0u78o62oph 02/05/2015 02/05/2015 Jozef Lopez MD Research 16853w6d-[id number]-h9034q31oe68 02/05/2015 02/05/2015 Jozef Lopez MD f/u 16041376-d256-76x2-8fv5-8814j60tecd4 02/05/2015 02/05/2015 Jozef Lopez MD Research [id number]-o5hn-429d-x0l7-96b21l17q160 02/05/2015 02/05/2015 Jozef Lopez MD f/u 60om5y5f-264o-46sv-58t7-l38dp28u1f1v 02/05/2015 02/05/2015 Jozef Lopez MD Research ftw60t9m-8x9o-0324-26f3-8ci365m045ob 02/05/2015 02/05/2015 Jozef Lopez MD f/u 12dnj855-9xrl-69nc-hxou-mi0l48j5403c 02/05/2015 02/05/2015 Jozef Lopez MD Research [id number]-uv17-[id number] 02/05/2015 02/05/2015 Jozef Lopez MD f/u [id number]-py258juoll32 02/05/2015 02/05/2015 Jozef Lopez MD Research [id number] 02/05/2015 02/05/2015 Jozef Lopez MD 2m f/u [id number] 02/05/2015 02/05/2015 Jozef Lopez MD Research [id number] 02/05/2015 02/05/2015 Jozef Lopez MD 2m f/u [id number] 02/05/2015 02/05/2015 Jozef Lopez MD Research [id number] 02/05/2015 02/05/2015 Jozef Lopez MD 2m f/u [id number] 02/05/2015 02/05/2015 Jozef Lopez MD Research [id number] 02/05/2015 02/05/2015 Jozef Lopez MD 2m f/u [id number] 02/05/2015 02/05/2015 Jozef Lopez MD Research [id number] 02/05/2015 02/05/2015 Jozef Lopez MD 2m f/u [id number] 02/05/2015 02/05/2015 Jozef Lopez MD Research [id number] 02/05/2015 02/05/2015 Jozef Lopez MD 2m f/u [id number] 02/05/2015 02/05/2015 Jozef Lopez MD Research [id number] 02/05/2015 02/05/2015 Jozef Lopez MD MRI [id number] 02/26/2015 02/26/2015 Jozef Lopez MD MRI [id number] 02/26/2015 02/26/2015 Jozef Lopez MD MRI [id number] 02/26/2015 02/26/2015 Jozef Lopez MD MRI [id number] 02/26/2015 02/26/2015 Jozef Lopez MD MRI [id number] 02/26/2015 02/26/2015 Jozef Lopez MD MRI [id number] 02/26/2015 02/26/2015 Jozef Lopez MD MRI [id number]-6bh1mrcq422n 02/26/2015 02/26/2015 Jozef Lopez MD MRI [id number] 02/26/2015 02/26/2015 Jozef Lopez MD MRI 97giri4l-[id number]-cjc0-[id number] 02/26/2015 02/26/2015 Jozef Lopez MD MRI [id number] 02/26/2015 02/26/2015 Jozef Lopez MD MRI [id number] 02/26/2015 02/26/2015 Jozef Lopez MD MRI [id number] 02/26/2015 02/26/2015 Jozef Lopez MD [facility] [id number] 02/26/2015 02/26/2015 Jozef Lopez MD [facility] [id number] 02/26/2015 02/26/2015 Jozef Lopez MD MRI [id number] 02/26/2015 02/26/2015 Jozef Lopez MD MRI [id number] 02/26/2015 02/26/2015 Jozef Lopez MD [facility] [id number] 02/26/2015 02/26/2015 Jozef Lopez MD [facility] [id number] 02/26/2015 02/26/2015 Jozef Lopez MD f/u [id number] 03/06/2015 03/06/2015 Jozef Lopez MD f/u [id number]-mt0si45t5g44 03/06/2015 03/06/2015 Jozef Lopez MD 2m f/u [id number]-f9563b0i3akj 03/06/2015 03/06/2015 Jozef Lopez MD f/u [id number] 03/06/2015 03/06/2015 Jozef Lopez MD f/u [id number]-m396dx7p12y9 03/06/2015 03/06/2015 Jozef Lopez MD 2m f/u [id number] 03/06/2015 03/06/2015 Jozef Lopez MD 2m f/u [id number] 03/06/2015 03/06/2015 Jozef Lopez MD 2m f/u [id number]-34wm-2449136snaoy 03/06/2015 03/06/2015 Jozef Lopez MD 2m f/u [id number]-[id number]-mt50c99wl277 03/06/2015 03/06/2015 Jozef Lopez MD 2m f/u [id number] 03/06/2015 03/06/2015 Jozef Lopez MD 2m f/u [id number] 03/06/2015 03/06/2015 Jozef Lopez MD 2m f/u [id number]-l7o6-8pma-k3j8-5ujb05991p62 03/06/2015 03/06/2015 Jozef Lopez MD 2m f/u [id number]-4346-07255lt862k2 03/06/2015 03/06/2015 Jozef Lopez MD 2m f/u [id number]-20420z9c5mq6 03/06/2015 03/06/2015 Jozef Lopez MD 2m f/u [id number]-k3me-06295dtd9dgh 03/06/2015 03/06/2015 Jozef Lopez MD 2m f/u [id number]-730z27k2yd47 03/06/2015 03/06/2015 Jozef Lopez MD 2m f/u [id number]-[id number] 03/06/2015 03/06/2015 Jozef Lopez MD 2m f/u [id number]-ax35-h97cb775s701 03/06/2015 03/06/2015 Jozef Lopez MD 1 MTH FOLLOW UP [id number] 04/05/2015 04/05/2015 Jozef Lopez MD 1 MTH FOLLOW UP [id number] 04/05/2015 04/05/2015 Jozef Lopez MD 1 MTH FOLLOW UP [id number] 04/05/2015 04/05/2015 Jozef Lopez MD 1 MTH FOLLOW UP [id number] 04/05/2015 04/05/2015 Jozef Lopez MD 1 MTH FOLLOW UP [id number] 04/05/2015 04/05/2015 Jozef Lopez MD 1 MTH FOLLOW UP [id number] 04/05/2015 04/05/2015 Jozef Lopez MD 1 MTH FOLLOW UP [id number] 04/05/2015 04/05/2015 Jozef Lopez MD 1 MTH FOLLOW UP [id number] 04/05/2015 04/05/2015 Jozef Lopez MD 1 MTH FOLLOW UP [id number] 04/05/2015 04/05/2015 Jozef Lopez MD 1 MTH FOLLOW UP [id number] 04/05/2015 04/05/2015 Jozef Lopez MD 1 MTH FOLLOW UP [id number] 04/05/2015 04/05/2015 Jozef Lopez MD 1 MTH FOLLOW UP [id number] 04/05/2015 04/05/2015 Jozef Lopez MD 1 MTH FOLLOW UP [id number] 04/05/2015 04/05/2015 Jozef Lopez MD 1 MTH FOLLOW UP [id number] 04/05/2015 04/05/2015 Jozef Lopez MD 1 MTH FOLLOW UP [id number] 04/05/2015 04/05/2015 Jozef Lopez MD 1 MTH FOLLOW UP [id number] 04/05/2015 04/05/2015 Jozef Lopez MD 1 MTH FOLLOW UP [id number] 04/05/2015 04/05/2015 Jozef Lopez MD 1 MTH FOLLOW UP [id number] 04/05/2015 04/05/2015 Jozef Lopez MD refill-- Plaquenil [id number] 04/27/2015 04/27/2015 Jozef Lopez MD refill-- Plaquenil [id number] 04/27/2015 04/27/2015 Jozef Lopez MD refill-- Plaquenil [id number] 04/27/2015 04/27/2015 Jozef Lopez MD refill-- Plaquenil [id number]-[id number]-3hzykr174ag7 04/27/2015 04/27/2015 Jozef Lopez MD refill-- Plaquenil [id number]-e99hunwe271r 04/27/2015 04/27/2015 Jozef Lopez MD refill-- Plaquenil [id number]-ak54-to3n2oo86e77 04/27/2015 04/27/2015 Jozef Lopez MD refill-- Plaquenil [id number] 04/27/2015 04/27/2015 Jozef Lopez MD refill-- Plaquenil [id number] 04/27/2015 04/27/2015 Jozef Lopez MD refill-- Plaquenil [id number] 04/27/2015 04/27/2015 Jozef Lopez MD refill-- Plaquenil [id number] 04/27/2015 04/27/2015 Jozef Lopez MD refill-- Plaquenil [id number] 04/27/2015 04/27/2015 Jozef Lopez MD refill-- Plaquenil [id number] 04/27/2015 04/27/2015 Jozef Lopez MD refill-- Plaquenil [id number]-q257-[id number] 04/27/2015 04/27/2015 Jozef Lopez MD refill-- Plaquenil [id number]-euf5-gp494g62kl27 04/27/2015 04/27/2015 Jozef Lopez MD refill-- Plaquenil [id number] 04/27/2015 04/27/2015 Jozef Lopez MD refill-- Plaquenil [id number] 04/27/2015 04/27/2015 Jozef Lopez MD refill-- Plaquenil [id number]-txdq-o9q9h84gupsq 04/27/2015 04/27/2015 Jozef Lopez MD refill-- Plaquenil [id number]-u390-g47384zx68hf 04/27/2015 04/27/2015 Jozef Lopez MD 1 month follow up [id number]-296o4x1v49o7 05/07/2015 05/07/2015 Jozef Lopez MD 1 month follow up [id number] 05/07/2015 05/07/2015 Jozef Lopez MD 1 month follow up [id number] 05/07/2015 05/07/2015 Jozef Lopez MD 1 month follow up [id number] 05/07/2015 05/07/2015 Jozef Lopez MD 1 month follow up [id number]-oy5x0061ezr8 05/07/2015 05/07/2015 Jozef Lopez MD 1 month follow up [id number] 05/07/2015 05/07/2015 Jozef Lopez MD 1 month follow up [id number] 05/07/2015 05/07/2015 Jozef Lopez MD 1 month follow up 15338bhq-330r-7od8-y032-r88m3y6vil2e 05/07/2015 05/07/2015 Jozef Lopez MD 1 month follow up qd1k7u8h-5l38-6527-sj5d-402176441j87 05/07/2015 05/07/2015 Jozef Lopez MD 1 month follow up [id number]-w09v-3238-b8q2-b5302l59966o 05/07/2015 05/07/2015 Jozef Lopez MD 1 month follow up 3u7ke8ma-u281-0pjn-29i3-6a9s04x67s71 05/07/2015 05/07/2015 Jozef Lopez MD 1 month follow up 95047f4x-e71u-7k74-090b-z82z6f202g8t 05/07/2015 05/07/2015 Jozef Lopez MD 1 month follow up g1ag76qu-8a24-55a4-h9i5-f83my26w0vuf 05/07/2015 05/07/2015 Jozef Lopez MD 1 month follow up ku26h740-2524-2qk9-71q1-w3oyamd16f62 05/07/2015 05/07/2015 Jozef Lopez MD 1 month follow up [id number]-br69-6nnp9j17nb7u 05/07/2015 05/07/2015 Jozef Lopez MD 1 month follow up 6j2e7622-8485-70n1-t022-w35185891xdo 05/07/2015 05/07/2015 Jozef Lopez MD 1 month follow up 0572fjj8-8843-07c8-4tz1-ia47b60126nz 05/07/2015 05/07/2015 Jozef Lopez MD 1 month follow up yt5f2fdy-696y-25qk-0z0r-0d654450e44z 05/07/2015 05/07/2015 Jozef Lopez MD MRI job11593-gw51-79sb-o4v7-8m2qvg495na8 05/13/2015 05/13/2015 Jozef Lopez MD MRI k2mc8460-hc9i-2k5c-wk3c-0mg8h8901v81 05/13/2015 05/13/2015 Jozef Lopez MD MRI ss88ula0-8phy-1597-z159-5h5696o5728r 05/13/2015 05/13/2015 Jozef Lopez MD MRI n8l158ph-7qs2-55g7-1134-p7qh71535442 05/13/2015 05/13/2015 Jozef Lopez MD MRI xb378f34-0033-01rm-q53f-m59a08485t51 05/13/2015 05/13/2015 Jozef Lopez MD MRI 73vg51hm-j71l-5244-d04v-2p86u4497x91 05/13/2015 05/13/2015 Jozef Lopez MD MRI 913y3o11-7i4q-8950-5a71-kc05430574ow 05/13/2015 05/13/2015 Jozef Lopez MD MRI 78yw79h8-n4u2-53m5-bg4i-7k629j38v42y 05/13/2015 05/13/2015 Jozef Lopez MD MRI 6928332r-8a69-2r3x-810t-h356qm90mbt4 05/13/2015 05/13/2015 Jozef Lopez MD MRI [id number] 05/13/2015 05/13/2015 Jozef Lopez MD MRI h6ec71k1-38t3-951n-435h-666uhra58892 05/13/2015 05/13/2015 Jozef Lopez MD MRI e6579x25-8d7r-3m77-4tg0-2df484c7756x 05/13/2015 05/13/2015 Jozef Lopez MD MRI ln75px78-0a66-78vn-6585-a0o76o06d656 05/13/2015 05/13/2015 Jozef Lopez MD MRI i1678rg7-090m-3914-zjyx-9l0w999a84n4 05/13/2015 05/13/2015 Jozef Lopez MD MRI q49l5ejb-2107-4yip-1g0i-96kd3665afna 05/13/2015 05/13/2015 Jozef Lopez MD MRI 2x215g15-i3r5-09lw-2n28-4ntza3gkq8cr 05/13/2015 05/13/2015 Jozef Lopez MD MRI 4157tz3p-ye12-6563-2u09-241d17yg3409 05/13/2015 05/13/2015 Jozef Lopez MD MRI b1633333-7ulj-84xd-n0j5-q164d75l07r3 05/13/2015 05/13/2015 Jozef Lopez MD [facility] 57e1292r-807c-1z5n-y7h2-4435g0q9b6s3 05/15/2015 05/15/2015 Jozef Lopez MD [facility] 20146j40-h872-1989-283g-x8zu48f673ku 05/15/2015 05/15/2015 Jozef Lopez MD [facility] 1gltv130-9927-2ql2-756a-1107ok6rxxwr 05/15/2015 05/15/2015 Jozef Lopez MD [facility] 868su10k-5b31-3ga0-4556-2pw587l3y1hw 05/15/2015 05/15/2015 Jozef Lopez MD [facility] 698lfkb9-3545-053z-z6j6-r1e82u1vjr5s 05/15/2015 05/15/2015 Jozef Lopez MD [facility] 586sy03a-45n0-149x-n263-27t1ri90fmki 05/15/2015 05/15/2015 Jozef Lopez MD [facility] d1026gzo-98ss-0194-19t1-0g188x5goq07 05/15/2015 05/15/2015 Jozef Lopez MD [facility] uj2m595i-1dgw-9910-3m92-w52rik4184k0 05/15/2015 05/15/2015 Jozef Lopez MD [facility] 87s45657-304o-213n-2771-558x92878cqc 05/15/2015 05/15/2015 Jozef Lopez MD [facility] hh74irz3-5j20-6445-6926-sz98504301b4 05/15/2015 05/15/2015 Jozef Lopez MD [facility] 44178x79-4715-9632-u637-32881t8352n5 05/15/2015 05/15/2015 Jozef Lopez MD [facility] 13xuj6b9-1xgo-2qg5-724i-6iu001x10t80 05/15/2015 05/15/2015 Jozef Lopez MD [facility] 92878vb2-a407-0520-m0h4-jbi8191y9j39 05/15/2015 05/15/2015 Jozef Lopez MD [facility] g09jqx3k-j9o2-30f2-2b22-539f769bh5l7 05/15/2015 05/15/2015 Jozef Lopez MD [facility] 453f45sc-l2x1-7044-f883-s04v789o29f0 05/15/2015 05/15/2015 Jozef Lopez MD [facility] bp0r68mb-30ag-9o60-f3p5-f89b7361w2j2 05/15/2015 05/15/2015 Jozef Lopez MD [facility] 2233v956-ct55-9y1t-6jm3-4by4p52qa282 05/15/2015 05/15/2015 Jozef Lopez MD [facility] 10j94890-4ha3-1420-r264-n04o2q037996 05/15/2015 05/15/2015 Jozef Lopez MD [facility] Per Study [id number]-bj62-x4q2w57wz684 06/18/2015 06/18/2015 Jozef Lopez MD [facility] Rx Per Study [id number]-g8618g7420so 06/18/2015 06/18/2015 Jozef Lopez MD [facility] Rx Per Study 9pb70v66-brfe-055u-mcn3-k0hh4695s24y 06/18/2015 06/18/2015 Jozef Lopez MD [facility] Rx Per Study [id number]-f59l-10qp-84o9-57nd4750rz7k 06/18/2015 06/18/2015 Jozef Lopez MD [facility] Rx Per Study [id number]-x959-565661ctfm6b 06/18/2015 06/18/2015 Jozef Lopez MD [facility] Rx Per Study rb5738u1-s3m3-7801-ate7-02s7pcz9khm1 06/18/2015 06/18/2015 Jozef Lopez MD [facility] Rx Per Study [id number]-2149-63t8-xi0o1o8r2y60 06/18/2015 06/18/2015 Jozef Lopez MD [facility] Rx Per Study rffpq2f0-8pjm-7ogi-8lk8-981y495j3605 06/18/2015 06/18/2015 Jozef Lopez MD [facility] Per Study [id number] 06/18/2015 06/18/2015 Jozef Lopez MD [facility] Per Study [id number]-[id number] 06/18/2015 06/18/2015 Jozef Lopez MD [facility] Rx Per Study 24l3sn3i-z9p3-5bu9-2800-9n41mh4z57yx 06/18/2015 06/18/2015 Jozef Lopez MD [facility] Rx Per Study 5gtg0i70-2nta-13zf-628i-m14xf808x4z0 06/18/2015 06/18/2015 Jozef Lopez MD [facility] Per Study -[id number]-r1c2-a05234ka16bs 06/18/2015 06/18/2015 Jozef Lopez MD [facility] Per Study [id number]-3030-8xu1uz321w6g 06/18/2015 06/18/2015 Jozef Lopez MD [facility] Rx Per Study [id number]-r9tz-d1zy85984b48 06/18/2015 06/18/2015 Jozef Lopez MD [facility] Per Study [id number] 06/18/2015 06/18/2015 Jozef Lopez MD [facility] Rx Per Study z75t28c5-v37t-56q5-sk83-o088e5243f25 06/18/2015 06/18/2015 Jozef Lopez MD [facility] Rx Per Study [id number]-vta3-4s3pvxqe09f7 06/18/2015 06/18/2015 Jozef Lopez MD MRI 96q96368-u712-3y4h-9i7p-79765fq9037n 07/15/2015 07/15/2015 Jozef Lopez MD MRI 8j226593-k809-975x-h5h1-30cs27lzv35n 07/15/2015 07/15/2015 Jozef Lopez MD MRI 5zq41bz7-6301-4w30-985g-4nb897g53bho 07/15/2015 07/15/2015 Jozef Lopez MD MRI fv95700u-8u50-27hg-e3a2-ar8874605i7l 07/15/2015 07/15/2015 Jozef Lopez MD MRI giid2833-2n09-7921-p73h-yl0zk1z58787 07/15/2015 07/15/2015 Jozef Lopez MD MRI 2906615m-0tl0-108s-u2z5-29y77tre0c93 07/15/2015 07/15/2015 Jozef Lopez MD MRI 60o8972f-2i95-342d-5p09-4p2m5x7zyq27 07/15/2015 07/15/2015 Jozef oLpez MD MRI 401b9d30-85y0-3926-v109-y36760l2ghx7 07/15/2015 07/15/2015 Jozef Lopez MD MRI bk65595r-267b-313v-z0kg-a2i2mf32046n 07/15/2015 07/15/2015 Jozef Lopez MD MRI 9101lg37-t85i-7008-9y0k-713lv624ck84 07/15/2015 07/15/2015 Jozef Lopez MD MRI 3128xd10-1114-0z7l-33h2-jm0mw0596546 07/15/2015 07/15/2015 Jozef Lopez MD MRI s46p95fz-hlx0-0pzk-1g05-9727nk05bmsd 07/15/2015 07/15/2015 Jozef Lopez MD MRI j886hqa1-7734-6u31-o9px-20776gqqqbu7 07/15/2015 07/15/2015 Jozef Lopez MD MRI s21b5j85-9h97-4lqo-931g-57678399a306 07/15/2015 07/15/2015 Jozef Lopez MD MRI 1j16s8q9-v33g-0426-3h22-8293c8d0df91 07/15/2015 07/15/2015 Jozef Lopez MD MRI hy13gd39-3221-23y6-86fs-idvj8g6q0ou4 07/15/2015 07/15/2015 Jozef Lopez MD MRI 74t3h728-5tr7-67e1-z134-0u48m1n614ef 07/15/2015 07/15/2015 Jozef Lopez MD MRI epc5v989-0l53-6jfq-vwa3-151kxl8rhd3r 07/15/2015 07/15/2015 Jozef Lopez MD 1 month follow up uijh3311-9f21-5400-k25u-wu233gq3dgu9 08/08/2015 08/08/2015 Jozef Lopez MD 1 month follow up j8p4nz6e-85k8-9183-u2d3-75888g5bei41 08/08/2015 08/08/2015 Jozef Lopez MD 1 month follow up 29l27a6z-5i67-095j-2j0m-312781y5es47 08/08/2015 08/08/2015 Jozef Lopez MD 1 month follow up oc6438j7-6f2i-5320-1jt3-rl855u254868 08/08/2015 08/08/2015 Jozef Lopez MD 1 month follow up 94i4yz0i-6i4s-5633-2a6s-3z43086si86g 08/08/2015 08/08/2015 Jozef Lopez MD 1 month follow up 96i2k322-69jf-677h-8v55-5i8rzq0o488m 08/08/2015 08/08/2015 Jozef Lopez MD 1 month follow up 01a5883m-6h50-0169-5m7y-a909gbefi446 08/08/2015 08/08/2015 Jozef Lopez MD 1 month follow up x775whlk-29vu-9800-1659-6my4196s5d6r 08/08/2015 08/08/2015 Jozef Lopez MD 1 month follow up i54d37s1-1826-3jwm-k9ba-c632tl83n9k3 08/08/2015 08/08/2015 Jozef Lopez MD 1 month follow up u09c04z3-i9w7-40zh-660g-um0zy6558257 08/08/2015 08/08/2015 Jozef Lopez MD 1 month follow up 05tx5w9t-9l36-210w-dnmf-486106f8zm01 08/08/2015 08/08/2015 Jozef Lopez MD 1 month follow up [id number]-v3392ub36258 08/08/2015 08/08/2015 Jozef Lopez MD 1 month follow up f7oem385-2oob-2m80-w5u7-0la9e7xfb80y 08/08/2015 08/08/2015 Jozef Lopez MD 1 month follow up 195n9127-517c-73v6-hh45-1i905ngp64x0 08/08/2015 08/08/2015 Jozef Lopez MD [facility] Per Protocol 537pu947-3x8z-695k-f844-t609y8b1r48c 10/01/2015 10/01/2015 Jozef Lopez MD [facility] Per Protocol [id number]-6i59-1m66-cq8k-q616b1lbe940 10/01/2015 10/01/2015 Jozef Lopez MD [facility] Rx Per Protocol t35jsj39-ee01-2345-0fa3-icg2666d9uvx 10/01/2015 10/01/2015 Jozef Lopez MD [facility] Rx Per Protocol [id number]-2q5x-50kl-28a5-i2554641s264 10/01/2015 10/01/2015 Jozef Lopez MD [facility] Per Protocol 9l852tpz-4h4b-6357-yr11-482sy4591v86 10/01/2015 10/01/2015 Jozef Lopez MD [facility] Per Protocol 263emfo2-4q0o-8081-k083-3327454v17r6 10/01/2015 10/01/2015 Jozef Lopez MD [facility] Per Protocol sgkm885s-r78t-1uqt-35ge-8h1739x681c6 10/01/2015 10/01/2015 Jozef Lopez MD [facility] Per Protocol [id number]-74j4-92g5-vu59-2s41vv55d67e 10/01/2015 10/01/2015 Jozef Lopez MD [facility] Per Protocol [id number]-265s-8h2i-0n1g-r91e16p23g45 10/01/2015 10/01/2015 Jozef Lopez MD [facility] Per Protocol 102c9k85-g642-94r1-xa04-99ws64su7i54 10/01/2015 10/01/2015 Jozef Lopez MD [facility] Per Protocol 3ev3nz7n-6041-1505-4rq8-215h3f1r6w47 10/01/2015 10/01/2015 Jozef Lopez MD [facility] Per Protocol 436q38n9-9854-5l4d-yl54-2z926syk36b4 10/01/2015 10/01/2015 Jozef Lopez MD [facility] Per Protocol shs450g2-49nn-12tx-7831-u674o29l364j 10/01/2015 10/01/2015 Jozef Lopez MD [facility] Per Protocol 5fs8y5s1-76o0-3i4c-r95z-40xt9m15rq8z 10/01/2015 10/01/2015 Jozef Lopez MD [facility] Rx Per Protocol lxi46r4u-9j2x-95m9-l7sd-87q505zc8k74 10/01/2015 10/01/2015 Jozef Lopez MD [facility] Rx Per Protocol v8xx334m-u474-8yp7-o1kt-5y2siibfhl87 10/01/2015 10/01/2015 Jozef Lopez MD 1 month follow up m7e4g1bf-ik02-4f5t-e5j3-ao1r5j11xr97 10/08/2015 10/08/2015 Jozef Lopez MD 1 month follow up egmrtr7a-x57f-7145-5s68-16el227351oo 10/08/2015 10/08/2015 Jozef Lopez MD 1 month follow up 51338089-b2cu-2bsi-8288-c4892364db9q 10/08/2015 10/08/2015 Jozef Lopez MD 1 month follow up 4e28x2e8-0530-49i9-pjs5-4y34ul47z9lp 10/08/2015 10/08/2015 Jozef Lopez MD 1 month follow up fc9n562o-755t-7ioc-4u7d-skqwju451265 10/08/2015 10/08/2015 Jozef Lopez MD 1 month follow up 637qb488-2842-0o3w-4953-970061ofy6o0 10/08/2015 10/08/2015 Jozef Lopez MD 1 month follow up 1a5g3446-85ic-6ew6-eff7-wk2bz8et4438 10/08/2015 10/08/2015 Jozef Lopez MD 1 month follow up 5d6e894u-4818-7b66-yi13-6sa4weq1zv11 10/08/2015 10/08/2015 Jozef Lopez MD 1 month follow up pl94j83q-t4dy-087o-vcp2-hu54j797742t 10/08/2015 10/08/2015 Jozef Lopez MD 1 month follow up 91d1d820-k52y-3k8z-90y0-y5075100xm9l 10/08/2015 10/08/2015 Jozef Lopez MD 1 month follow up ez2efy6i-00u0-9kyp-6j93-4ksrg00h83o1 10/08/2015 10/08/2015 Jozef Lopez MD 1 month follow up 7d7366kk-9j61-827s-p007-7ebe9g3ul2h5 10/08/2015 10/08/2015 Jozef Lopez MD 1 month follow up 87w38w17-32pu-2vd3-6a4z-26622bm8x8s4 10/08/2015 10/08/2015 Jozef Lopez MD 1 month follow up e1e695u1-b3q3-909k-j4gr-eg81g4v48z10 10/08/2015 10/08/2015 Jozef Lopez MD 1 month follow up 24t36462-l2tw-87c6-m602-oj8w6oq76077 10/08/2015 10/08/2015 Jozef Lopez MD MRI 624zo5r1-q31e-8736-jdrt-ty4i2z3d6o4k 10/22/2015 10/22/2015 Jozef Lopez MD MRI 90p96d47-4f6d-2263-19f8-t263a55qy3s5 10/22/2015 10/22/2015 oJzef Lopez MD MRI c7n23ez0-70rk-4b97-jxw1-7dgeowx9fd0t 10/22/2015 10/22/2015 Jozef Lopez MD MRI ozfq9n4q-h633-4r38-6zg8-q3ri8x6z9233 10/22/2015 10/22/2015 Jozef Lopez MD [facility] s893ebt8-w866-45s8-10b7-r6s6771e496x 10/22/2015 10/22/2015 Jozef Lopez MD [facility] c2a5s513-6p52-5q73-jmo8-c853y82g3624 10/22/2015 10/22/2015 Jozef Lopez MD [facility] a3s9h850-331x-1zuj-a334-1i32upts48y2 10/22/2015 10/22/2015 Jozef Lopez MD [facility] 3666x558-2952-88ej-k3m4-d260201aux03 10/22/2015 10/22/2015 Jozef Lopez MD [facility] ff7l812w-wq3v-1038-315x-a8hktxln16wf 10/22/2015 10/22/2015 Jozef Lopez MD [facility] 1o920f21-e849-9378-7n99-40ce8355rq9v 10/22/2015 10/22/2015 Jozef Lopez MD [facility] at92c71e-zjv1-9988-0x95-3m0ay747b512 10/22/2015 10/22/2015 Jozef Lopez MD [facility] 37500856-98o2-53df-70gr-t43u57w666o2 10/22/2015 10/22/2015 Jozef Lopez MD [facility] h407zau7-d4n1-9lq1-30ya-h087983i1m03 10/22/2015 10/22/2015 Jozef Lopez MD 974p3yn1-es71-26p5-nvo6-zx9625wi4i72 11/13/2015 11/13/2015 Jozef Lopez MD 85l19584-f8qo-7xs3-kv67-789232rp2y84 11/13/2015 11/13/2015 Jozef Lopez MD e05848ec-39yw-32or-10e0-h2k6vcl6982i 11/13/2015 11/13/2015 Jozef Lopez MD t13joeau-z493-7824-2413-543911837856 11/13/2015 11/13/2015 Jozef Lopez MD 590as353-041z-2vpp-qhoq-bq2mygc147w1 11/13/2015 11/13/2015 Jozef Lopez MD ws2l1477-g4ib-5b17-6ta6-3hq6g91083y3 11/13/2015 11/13/2015 Jozef Lopez MD 0063d96j-3g50-4k6b-w507-ynx5c8q4z8t2 11/13/2015 11/13/2015 Jozef Lopez MD 53uz0726-2583-81e8-3j0d-967r68c90790 11/13/2015 11/13/2015 Jozef Lopez MD 9968r773-7b87-28v3-84z6-32nun16x019j 11/13/2015 11/13/2015 Jozef Lopez MD r3g43dy1-543w-33x1-nhi6-u5d0e64s9s16 11/13/2015 11/13/2015 Jozef Lopez MD 6905a358-zb52-7n63-0b8k-4j32az96i811 11/13/2015 11/13/2015 Jozef Lopez MD 71b1f9yu-n92m-31t2-u39x-18esf14l7936 11/13/2015 11/13/2015 Joezf Lopez MD 1 mo f/u 5pji1353-3i0l-274y-9b40-wq8t726030ak 12/13/2015 12/13/2015 Jozef Lopez MD 1 mo f/u 904g6025-4507-5783-4t2a-l8s269x46706 12/13/2015 12/13/2015 Jozef Lopez MD 1 mo f/u 5964820u-0es1-744m-7155-g82x68z75aym 12/13/2015 12/13/2015 Jozef Lopez MD 1 mo f/u 4i574xi1-o897-2222-5b0g-17ga10vod8d5 12/13/2015 12/13/2015 Jozef Lopez MD 1 mo f/u 6czj8l1x-q013-3542-6je6-74r15z78p9o1 12/13/2015 12/13/2015 Jozef Lopez MD 1 mo f/u 5129ak82-8476-8390-h4o7-e0x229r045xg 12/13/2015 12/13/2015 Jozef Lopez MD 1 mo f/u 907jdq5s-dr52-9h05-o1v0-a8g667349425 12/13/2015 12/13/2015 Jozef Lopez MD 1 mo f/u w5847fgv-197f-2xwb-rs12-757p49ck0625 12/13/2015 12/13/2015 Jozef Lopez MD 1 mo f/u 534466m2-29s3-0c7v-y0k7-0h7t1573c47o 12/13/2015 12/13/2015 Jozef Lopez MD 1 mo f/u uk0tbc5j-52z4-8yuo-r0k4-20s8c23n4373 12/13/2015 12/13/2015 Jozef Lopez MD 1 mo f/u u4bm4ixs-h805-103n-3805-48s51o946x93 12/13/2015 12/13/2015 Jozef Lopez MD 1 mo f/u 3089uyhe-6th1-0sx23hd3-5wm8-oq39-85w5j6367220 01/10/2016 01/10/2016 Jozef Lopez MD 1 mo f/u 089m7021-j738-76u1-6rp2-088310k92nt3 01/10/2016 01/10/2016 Jozef Lopez MD 1 mo f/u hrt6vk7l-45jj-6p64-z9ni-5508o4363mf2 01/10/2016 01/10/2016 Jozef Lopez MD 1 mo f/u 55750w46-07a3-459r-229a-41b6g593b613 01/10/2016 01/10/2016 Jozef Lopez MD 1 mo f/u 85a46e5i-722x-1s59-68hv-wm0sdpk268hn 01/10/2016 01/10/2016 Jozef Lopez MD 1 mo f/u 463n819e-9979-91be-wrb5-452o6d801159 01/10/2016 01/10/2016 Jozef Lopez MD 1 mo f/u 872623v8-82u2-0cv4-z918-mkro565h2a33 01/10/2016 01/10/2016 Jozef Lopez MD 1 mo f/u xs9e633z-2gld-1t23-70xn-vwo6401zxa8k 01/10/2016 01/10/2016 Jozef Lopez MD 1 mo f/u 7gv48m83-727s-6628-h725-67j39at19583 01/10/2016 01/10/2016 Jozef Lopez MD 1 mo f/u t0p54q92-7841-2c18-re10-432y5def5cvh 01/10/2016 01/10/2016 Jozef Lopez MD B 12 INJECTION al70u607-4v77-8430-1dev-z730yetodg52 02/04/2016 02/04/2016 Jozef Lopez MD B 12 INJECTION rlz29fcj-fd2k-72o6-90i9-e04m58krd227 02/04/2016 02/04/2016 Joezf Lopez MD B 12 INJECTION c295ed1a-jsu1-3112-9433-3e494h1ta24s 02/04/2016 02/04/2016 Jozef Lopez MD B 12 INJECTION 75e8d232-9112-39yy-lfs6-076s7672y766 02/04/2016 02/04/2016 Jozef Lopez MD B 12 INJECTION 76mu30s4-v50z-5b72-0az7-107lnt7odz59 02/04/2016 02/04/2016 Jozef Lopez MD B 12 INJECTION 0o708087-2964-7n39-3616-ln5tlc33574r 02/04/2016 02/04/2016 Jozef Lopez MD B 12 INJECTION qktxp9i5-nwn2-788k-l79u-2t5v6c2u8bz9 02/04/2016 02/04/2016 Jozef Lopez MD B 12 INJECTION 7mhp5kbp-9bbn-404o-1x7i-e45tp16481qw 02/04/2016 02/04/2016 Jozef Lopez MD B 12 INJECTION n86z6m5m-6u03-10r8-k3b5-uu6nd2tc859m 02/04/2016 02/04/2016 Jozef Lopez MD Unknown tg5fy792-w6m7-00g7-2672-eic4368570c3 02/05/2016 02/05/2016 Jozef Lopez MD Unknown [id number] 02/05/2016 02/05/2016 Jozef Lopez MD Unknown [id number] 02/05/2016 02/05/2016 Jozef Lopez MD Unknown [id number] 02/05/2016 02/05/2016 Jozef Lopez MD Unknown [id number] 02/05/2016 02/05/2016 Jozef Lopez MD Unknown [id number] 02/05/2016 02/05/2016 Jozef Lopez MD Unknown [id number] 02/05/2016 02/05/2016 Jozef Lopez MD Unknown [id number] 02/05/2016 02/05/2016 Jozef Lopez MD 1 mo f/u [id number] 02/19/2016 02/19/2016 Jozef Lopez MD 1 mo f/u [id number] 02/19/2016 02/19/2016 Jozef Lopez MD 1 mo f/u [id number] 02/19/2016 02/19/2016 Jozef Lopez MD 1 mo f/u [id number] 02/19/2016 02/19/2016 Jozef Lopez MD 1 mo f/u [id number] 02/19/2016 02/19/2016 Jozef Lopez MD 1 mo f/u [id number] 02/19/2016 02/19/2016 Jozef Lopez MD 1 mo f/u [id number] 02/19/2016 02/19/2016 Jozef Lopez MD DEXA [id number] 04/09/2016 04/09/2016 Jozef Lopez MD DEXA [id number] 04/09/2016 04/09/2016 Jozef Lopez MD DEXA [id number] 04/09/2016 04/09/2016 Jozef Lopez MD DEXA [id number] 04/09/2016 04/09/2016 Jozef Lopez MD DEXA [id number] 04/09/2016 04/09/2016 Jozef Lopez MD DEXA [id number] 04/09/2016 04/09/2016 Jozef Lopez MD one month follow up [id number] 04/16/2016 04/16/2016 Jozef Lopez MD one month follow up [id number] 04/16/2016 04/16/2016 Jozef Lopez MD one month follow up [id number] 04/16/2016 04/16/2016 Jozef Lopez MD one month follow up [id number] 04/16/2016 04/16/2016 Jozef Lopez MD one month follow up [id number] 04/16/2016 04/16/2016 Jozef Lopez MD B-12 Inj [id number] 05/05/2016 05/05/2016 Jozef Lopez MD B-12 Inj [id number] 05/05/2016 05/05/2016 Jozef Lopez MD B-12 Inj [id number] 05/05/2016 05/05/2016 Jozef Lopez MD B-12 Inj [id number] 05/05/2016 05/05/2016 Jozef Lopez MD Unknown [id number] 05/07/2016 05/07/2016 Jozef Lopez MD Unknown [id number] 05/07/2016 05/07/2016 Jozef Lopez MD Unknown [id number] 05/07/2016 05/07/2016 Jozef Lopez MD PT ADDED 08/14 [id number] 07/30/2016 07/30/2016 Jozef Lopez MD PT ADDED 08/14 [id number] 07/30/2016 07/30/2016 Jozef Lopez MD F/U [id number] 08/14/2016 08/14/2016 Jozef Lopez Procedures Procedure Code Date Perfomer Comments Source
--- OUTSIDE RECORDS SUMMARY | 2018-07-06 09:55 | XMS REPORT ---
Author Author Tiffanie Valles Organization [employer] Address Unknown Phone Unavailable Care Team Providers Care Slurry Control Tender Name Role Phone Tiffanie Valles CP Unavailable Allergies, Adverse Reactions, Alerts Substance Reaction Event Type Methotrexate Info Not Available Non Drug Allergy azulfidine Info Not Available Non Drug Allergy Problems Problem Type Condition Code Onset Dates Condition Status Problem Rheumatoid arthritis with rheumatoid factor of multiple sites without organ or systems involvement M05.79 Active Problem Other [facility] (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 therapy Z79.899 Active Problem Rash R21 Active Assessment Other [facility] (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 therapy Z79.899 Active Problem Age-related osteoporosis without current pathological fracture M81.0 Active Assessment Rheumatoid arthritis with rheumatoid factor of multiple sites without organ or systems involvement M05.79 Active Medications Medication Code System Code Instructions Start Date End Date Status Dosage Hydrocodone-Acetaminophen [facility] [address]-18 10-325 MG Orally every 6 hrs Active 1 tablet as needed Arava [facility] [address]-64 20 MG Orally Once a day Active 1 tablet Humira [facility] 74477553259 40 Active INJECT 0.8ML SUBCUTANEOUSLY EVERY 2 WEEKS Medrol Dose Armand [facility] 86220723105 4mg Orally once a day Feb 03, 2017 Active as directed PredniSONE [facility] [address]-28 2.5 MG Orally Once a day Active 1 tablet with food or milk Atenolol [facility] [address]-17 25 MG Orally Once a day Active 1/2 tablet Folic Acid [facility] 37836477820 1 Orally Once a day Active 1 tablet Plaquenil [facility] 85412617559 200 Twice a day Active 1 tablet Aspirin [facility] [address]-43 81 MG Orally Once a day Active 1 tablet Vital Signs Date/Time: Feb 03, 2017 BMI 32.29 Index Weight 154.5 lbs Height 58 in Temperature 97.2 F Cardiac Monitoring Heart Rate 72 /min Blood Pressure Diastolic 68 mm Hg Blood Pressure Systolic 100 mm Hg Results No Known Results Summary Purpose [employer] Submission
--- OUTSIDE RECORDS SUMMARY | 2018-07-06 09:55 | XMS REPORT ---
Author Author Tiffanie Valles Organization [employer] Address Unknown Phone Unavailable Care Team Providers Care Dough Panner Name Role Phone Tiffanie Valles CP Unavailable Allergies, Adverse Reactions, Alerts Substance Reaction Event Type Methotrexate Info Not Available Non Drug Allergy azulfidine Info Not Available Non Drug Allergy Problems Problem Type Condition Code Onset Dates Condition Status Problem Rheumatoid arthritis with rheumatoid factor of multiple sites without organ or systems involvement M05.79 Active Problem Other [facility] (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 therapy Z79.899 Active Problem Rash R21 Active Assessment Other [facility] (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 therapy Z79.899 Active Assessment Age-related osteoporosis without current pathological fracture M81.0 Active Problem Age-related osteoporosis without current pathological fracture M81.0 Active Assessment Rheumatoid arthritis with rheumatoid factor of multiple sites without organ or systems involvement M05.79 Active Medications Medication Code System Code Instructions Start Date End Date Status Dosage Plaquenil [facility] 76181148342 200 Twice a day Active [address] [facility] [address]-23 20 MG Orally Once a day Active 1 tablet Hydrocodone-Acetaminophen [facility] [address]-10 10-325 MG Orally every 6 hrs December 31, 2016 Active 1 tablet as needed Atenolol [facility] [address]-06 25 MG Orally Once a day Active 1 tablet [address]niSONE [facility] [address]-38 2.5 MG Orally Once a day Active 1 tablet with food or milk Folic Acid [facility] 94300784133 1 Orally Once a day Active 1 tablet Humira [facility] 62648143351 40 Active INJECT 0.8ML SUBCUTANEOUSLY EVERY [address] [facility] [address]-75 81 MG Orally Once a day Active 1 tablet Vital Signs Date/Time: December 01, 2016 BMI 33.54 Index Weight 155 lbs Height 57 in Temperature 97.8 F Cardiac Monitoring Heart Rate 80 /min Blood Pressure Diastolic 62 mm Hg Blood Pressure Systolic 118 mm Hg Results No Known Results Summary Purpose [employer] Submission
--- OUTSIDE RECORDS SUMMARY | 2018-07-06 09:55 | XMS REPORT ---
Author Author Shalom Palacios [facility] eClinicalWorks Address Unknown Phone Unavailable Care Team Providers Care Net Washer Name Role Phone Shalom Palacios CP Unavailable Allergies, Adverse Reactions, Alerts Substance Reaction Event Type Methotrexate Info Not Available Non Drug Allergy azulfidine Info Not Available Non Drug Allergy Problems Problem Type Condition Code Onset Dates Condition Status Assessment residential current use of opiate analgesic Z79.891 Active Problem Rash R21 Active Problem Rheumatoid arthritis with rheumatoid factor of multiple sites without organ or systems involvement M05.79 Active Problem 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 use of opiate analgesic Z79.891 Active Assessment Rheumatoid arthritis with rheumatoid factor of multiple sites without organ or systems involvement M05.79 Active Assessment Other skilled nursing (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 therapy Z79.899 Active Problem Other skilled nursing (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 therapy Z79.899 Active Problem Age-related osteoporosis without current pathological fracture M81.0 Active Medications Medication Code System Code Instructions Start Date End Date Status Dosage PredniSONE [facility] [address]-48 2.5 MG Orally Once a day Active 1 tablet with food or milk Atenolol [facility] [address]-82 25 MG Orally Once a day Active 1/2 tablet Humira [facility] 25095800099 40 Active INJECT 0.8ML SUBCUTANEOUSLY EVERY 2 WEEKS Arava [facility] [address]-92 20 MG Orally Once a day Active 1 tablet Plaquenil [facility] 76564573951 200 Twice a day Active 1 tablet Aspirin [facility] [address]-52 81 MG Orally Once a day Active 1 tablet Hydrocodone-Acetaminophen [facility] [address]-34 10-325 MG Orally tid Jul 04, 2017 Active 1 tablet as needed Folic Acid [facility] 97763369425 1 Orally Once a day Active 1 tablet Vital Signs Date/Time: Mar 06, 2017 BMI 32.18 Index Weight 154 lbs Height 58 in Temperature 97.3 F Cardiac Monitoring Heart Rate 64 /min Blood Pressure Diastolic 70 mm Hg Blood Pressure Systolic 102 mm Hg Results No Known Results Summary Purpose eClinicalWorks Submission
--- OUTSIDE RECORDS SUMMARY | 2018-07-06 09:55 | XMS REPORT ---
Author Author Tiffanie Valles [facility] eClinicalWorks Address Unknown Phone Unavailable Care Team Providers Care Health Consultant Name Role Phone Tiffanie Valles Unavailable Allergies, Adverse Reactions, Alerts Substance Reaction Event Type Methotrexate Info Not Available Non Drug Allergy azulfidine Info Not Available Non Drug Allergy Problems Problem Type Condition Code Onset Dates Condition Status Assessment Other illuminating engineer (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 therapy Z79.899 Active Problem Rash R21 Active Problem Rheumatoid arthritis with rheumatoid factor of multiple sites without organ or systems involvement M05.79 Active Problem detention current use of opiate analgesic Z79.891 Active Assessment Rheumatoid arthritis with rheumatoid factor of multiple sites without organ or systems involvement M05.79 Active Assessment Age-related osteoporosis without current pathological fracture M81.0 Active Problem Other illuminating engineer (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 therapy Z79.899 Active Problem Age-related osteoporosis without current pathological fracture M81.0 Active Medications Medication Code System Code Instructions Start Date End Date Status Dosage PredniSONE [facility] [address]-83 2.5 MG Orally Once a day Active 1 tablet with food or milk Atenolol [facility] [address]-69 25 MG Orally Once a day Active 1/2 tablet Aspirin [facility] [address]-51 81 MG Orally Once a day Active 1 tablet Plaquenil [facility] 22423228280 200 Twice a day Active 1 tablet Arava [facility] [address]-06 20 MG Orally Once a day Active 1 tablet Folic Acid [facility] 80187232945 1 Orally Once a day Active 1 tablet Hydrocodone-Acetaminophen [facility] [address]-42 10-325 MG Orally tid May 16, 2017 Active 1 tablet as needed Fosamax [facility] [address]-30 70 MG Orally Apr 16, 2017 Active 1 tablet Humira [facility] 53639833040 40 Active INJECT 0.8ML SUBCUTANEOUSLY EVERY 2 WEEKS Vital Signs Date/Time: Apr 16, 2017 BMI 32.08 Index Weight 153.5 lbs Height 58 in Temperature 97.8 F Cardiac Monitoring Heart Rate 66 /min Blood Pressure Diastolic 68 mm Hg Blood Pressure Systolic 104 mm Hg Results No Known Results Summary Purpose eClinicalWorks Submission
--- OUTSIDE RECORDS SUMMARY | 2018-07-06 09:55 | XMS REPORT ---
Author Author Tiffanie Valles Organization eClinicalWorks Address Unknown Phone Unavailable Care Team Providers Care Condenser Setter Name Role Phone Tiffanie Valles CP Unavailable Allergies, Adverse Reactions, Alerts Substance Reaction Event Type Methotrexate Info Not Available Non Drug Allergy azulfidine Info Not Available Non Drug Allergy Problems Problem Type Condition Code Onset Dates Condition Status Problem Rheumatoid arthritis with rheumatoid factor of multiple sites without organ or systems involvement M05.79 Active Problem Other usp (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 therapy Z79.899 Active Problem Rash R21 Active Assessment Other usp (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 therapy Z79.899 Active Problem Age-related osteoporosis without current pathological fracture M81.0 Active Assessment Rheumatoid arthritis with rheumatoid factor of multiple sites without organ or systems involvement M05.79 Active Medications Medication Code System Code Instructions Start Date End Date Status Dosage Folic Acid [facility] 49607909354 1 Orally Once a day Active 1 tablet Arava [facility] [address]-92 20 MG Orally Once a day Active 1 tablet Atenolol [facility] [address]-44 25 MG Orally Once a day Active 1 tablet Hydrocodone-Acetaminophen [facility] [address]-22 10-325 MG Orally every 6 hrs November 27, 2016 Active 1 tablet as needed Plaquenil [facility] 50670253877 200 Twice a day Active 1 tablet Humira [facility] 40702336565 40 Active INJECT 0.8ML SUBCUTANEOUSLY EVERY 2 WEEKS Amoxicillin [facility] [address]-01 500 MG Orally every 12 hrs Active 1 capsule Aspirin [facility] [address]-61 81 MG Orally Once a day Active 1 tablet PredniSONE [facility] [address]-29 2.5 MG Orally Once a day Active 1 tablet with food or milk Vital Signs Date/Time: October 28, 2016 BMI 33.54 Index Weight 155 lbs Height 57 in Temperature 98.1 F Cardiac Monitoring Heart Rate 80 /min Blood Pressure Diastolic 80 mm Hg Blood Pressure Systolic 124 mm Hg Results No Known Results Summary Purpose eClinicalWorks Submission
--- OUTSIDE RECORDS SUMMARY | 2018-07-06 09:55 | XMS REPORT ---
Author Author Tiffanie Valles Organization eClinicalWorks Address Unknown Phone Unavailable Care Team Providers Care Oyster Shipper Name Role Phone Tiffanie Valles Unavailable Allergies, Adverse Reactions, Alerts Substance Reaction Event Type Methotrexate Info Not Available Non Drug Allergy azulfidine Info Not Available Non Drug Allergy Problems Problem Type Condition Code Onset Dates Condition Status Problem Rheumatoid arthritis with rheumatoid factor of multiple sites without organ or systems involvement M05.79 Active Problem Other assisted (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 therapy Z79.899 Active Problem Rash R21 Active Assessment Other assisted (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 therapy Z79.899 Active Problem Age-related osteoporosis without current pathological fracture M81.0 Active Assessment Rheumatoid arthritis with rheumatoid factor of multiple sites without organ or systems involvement M05.79 Active Medications Medication Code System Code Instructions Start Date End Date Status Dosage Aspirin [facility] [address]-68 81 MG Orally Once a day Active 1 tablet PredniSONE [facility] [address]-66 2.5 MG Orally Once a day Active 1 tablet with food or milk Arava [facility] [address]-35 20 MG Orally Once a day Active 1 tablet Hydrocodone-Acetaminophen [facility] [address]-16 10-325 MG Orally every 6 hrs Active 1 tablet as needed Humira [facility] 15313447579 40 Active INJECT 0.8ML SUBCUTANEOUSLY EVERY 2 WEEKS Plaquenil [facility] 00540837220 200 Twice a day Active 1 tablet Atenolol [facility] [address]-00 25 MG Orally Once a day Active 1/2 tablet Folic Acid [facility] 76903115804 1 Orally Once a day Active 1 tablet Vital Signs Date/Time: December 31, 2016 BMI 34.19 Index Weight 158 lbs Height 57 in Temperature 98.5 F Cardiac Monitoring Heart Rate 80 /min Blood Pressure Diastolic 62 mm Hg Blood Pressure Systolic 112 mm Hg Results No Known Results Summary Purpose eClinicalWorks Submission
--- OUTSIDE RECORDS SUMMARY | 2018-07-06 09:55 | XMS REPORT ---
Author Author Ajith Lopez Organization eClinicalWorks Address Unknown Phone Unavailable Care Team Providers Care Senior Sales Engineer Name Role Phone Ajith Lopez CP Unavailable Allergies No Known Allergies Problems Problem Type Condition Code Onset Dates Condition Status Problem Rash R21 Active Problem Rheumatoid arthritis with rheumatoid factor of multiple sites without organ or systems involvement M05.79 Active Problem intermediate teacher current use of opiate analgesic Z79.891 Active Problem Other senior care (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 therapy Z79.899 Active Problem Age-related osteoporosis without current pathological fracture M81.0 Active Medications No Known Medications Results No Known Results Summary Purpose eClinicalWorks Submission
--- OUTSIDE RECORDS SUMMARY | 2018-07-06 09:55 | XMS REPORT ---
Author Author Ajith Lopez Organization eClinicalWorks Address Unknown Phone Unavailable Care Team Providers Care Machine Burrer Name Role Phone Ajith Lopez CP Unavailable Allergies No Known Allergies Problems Problem Type Condition Code Onset Dates Condition Status Problem Other middle or intermediate school principal (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 therapy Z79.899 Active Problem Degenerative disc disease, lumbar M51.36 Active Problem Anterolisthesis M43.10 Active Problem Degenerative disc disease, cervical M50.30 Active Problem Rheumatoid arthritis with rheumatoid factor of multiple sites without organ or systems involvement M05.79 Active Problem Age-related osteoporosis without current pathological fracture M81.0 Active Problem senior care current use of opiate analgesic Z79.891 Active Problem Rash R21 Active Medications No Known Medications Results No Known Results Summary Purpose eClinicalWorks Submission
--- OUTSIDE RECORDS SUMMARY | 2018-07-06 09:55 | XMS REPORT ---
Author Author Ajith Lopez Organization eClinicalWorks Address Unknown Phone Unavailable Care Team Providers Care Supervisor Malted Milk Name Role Phone Ajith Lopez CP Unavailable Allergies No Known Allergies Problems Problem Type Condition Code Onset Dates Condition Status Problem Other watermaster (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 therapy Z79.899 Active Problem Degenerative disc disease, lumbar M51.36 Active Problem Anterolisthesis M43.10 Active Problem Degenerative disc disease, cervical M50.30 Active Problem Rheumatoid arthritis with rheumatoid factor of multiple sites without organ or systems involvement M05.79 Active Problem Age-related osteoporosis without current pathological fracture M81.0 Active Problem detention current use of opiate analgesic Z79.891 Active Problem Rash R21 Active Medications No Known Medications Results No Known Results Summary Purpose eClinicalWorks Submission
--- OUTSIDE RECORDS SUMMARY | 2018-07-06 09:55 | XMS REPORT ---
Author Author Ajith Lopez Organization eClinicalWorks Address Unknown Phone Unavailable Care Team Providers Care Cafe Or Restaurant Manager Name Role Phone Ajith Lopez CP Unavailable Allergies No Known Allergies Problems Problem Type Condition Code Onset Dates Condition Status Problem Other terminal operator (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 therapy Z79.899 Active Problem Degenerative disc disease, lumbar M51.36 Active Problem Anterolisthesis M43.10 Active Problem Degenerative disc disease, cervical M50.30 Active Problem Rheumatoid arthritis with rheumatoid factor of multiple sites without organ or systems involvement M05.79 Active Problem Age-related osteoporosis without current pathological fracture M81.0 Active Problem jail current use of opiate analgesic Z79.891 Active Problem Rash R21 Active Medications No Known Medications Results No Known Results Summary Purpose eClinicalWorks Submission
--- OUTSIDE RECORDS SUMMARY | 2018-07-06 09:55 | XMS REPORT ---
Author Author Ajith Lopez Organization eClinicalWorks Address Unknown Phone Unavailable Care Team Providers Care Assistant Branch Manager Name Role Phone Ajith Lopez CP Unavailable Allergies No Known Allergies Problems Problem Type Condition Code Onset Dates Condition Status Problem Rheumatoid arthritis with rheumatoid factor of multiple sites without organ or systems involvement M05.79 Active Problem Other long term care pharmacist (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 therapy Z79.899 Active Problem Rash R21 Active Problem Age-related osteoporosis without current pathological fracture M81.0 Active Medications No Known Medications Results No Known Results Summary Purpose eClinicalWorks Submission
--- OUTSIDE RECORDS SUMMARY | 2018-07-06 09:55 | XMS REPORT ---
Author Author Shalom Palacios [facility] eClinicalWorks Address Unknown Phone Unavailable Care Team Providers Care Pharmacy Graduate Intern Name Role Phone Shalom Palacios Unavailable Allergies, Adverse Reactions, Alerts Substance Reaction Event Type Methotrexate Info Not Available Non Drug Allergy azulfidine Info Not Available Non Drug Allergy Problems Problem Type Condition Code Onset Dates Condition Status Assessment 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 control technician (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 therapy Z79.899 Active Problem 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 control technician (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 therapy Z79.899 Active Assessment Rheumatoid arthritis with rheumatoid factor of multiple sites without organ or systems involvement M05.79 Active Problem Degenerative disc disease, lumbar M51.36 Active Problem Anterolisthesis M43.10 Active Problem Degenerative disc disease, cervical M50.30 Active Problem Rheumatoid arthritis with rheumatoid factor of multiple sites without organ or systems involvement M05.79 Active Problem Age-related osteoporosis without current pathological fracture M81.0 Active Problem long-term current use of opiate analgesic Z79.891 Active Problem Rash R21 Active Medications Medication Code System Code Instructions Start Date End Date Status Dosage Hydrocodone-Acetaminophen [facility] 44860582430 10-325 MG Orally TID Active 1 tablet as needed Plaquenil [facility] 26614194525 200 MG Orally Twice a day Active 1 tablet with food or milk Fosamax [facility] 52511457144 70 MG Orally Once a week Active 1 tablet Aspirin [facility] 19596013143 81 MG Orally Once a day Active 1 tablet Methotrexate ND 13772822131 2.5 MG Orally once a week October 16, 2017 Active take 4 tablets PredniSONE ND 82978728857 2.5 MG Orally Once a day Active 1 tablet Humira [facility] 96149719744 40 every two weeks Active INJECT 0.8ML SUBCUTANEOUSLY EVERY 2 WEEKS Atenolol ND 99018675548 25 MG Orally Once a day Active 1/2 tablet Triamcinolone Acetonide [facility] 66777065646 0.1 % Externally Twice a day Active 1 application to affected area Folic Acid [facility] 40364554070 1 MG Orally Once a day Active 1 tablet Vital Signs Date/Time: October 16, 2017 BMI 32.02 Index Weight 148 lbs Height 57 in Temperature 98.2 F Cardiac Monitoring Heart Rate 72 /min Blood Pressure Diastolic 80 mm Hg Blood Pressure Systolic 112 mm Hg Results No Known Results Summary Purpose eClinicalWorks Submission
--- OUTSIDE RECORDS SUMMARY | 2018-07-06 09:55 | XMS REPORT ---
Author Author Tiffanie Valles [facility] eClinicalWorks Address Unknown Phone Unavailable Care Team Providers Care Materials Development Engineer Name Role Phone Tiffanie Valles Unavailable Allergies, Adverse Reactions, Alerts Substance Reaction Event Type Methotrexate Info Not Available Non Drug Allergy azulfidine Info Not Available Non Drug Allergy Problems Problem Type Condition Code Onset Dates Condition Status Assessment 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 control servicer (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 therapy Z79.899 Active Assessment Age-related osteoporosis without current pathological fracture M81.0 Active Problem Rash R21 Active Problem Rheumatoid arthritis with rheumatoid factor of multiple sites without organ or systems involvement M05.79 Active Problem [facility] current use of opiate analgesic Z79.891 Active Assessment Rheumatoid arthritis with rheumatoid factor of multiple sites without organ or systems involvement M05.79 Active Assessment Back pain M54.9 Active Problem Age-related osteoporosis without current pathological fracture M81.0 Active Problem 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 control servicer (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 therapy Z79.899 Active Medications Medication Code System Code Instructions Start Date End Date Status Dosage Medrol Dose [place] [facility] 18855134002 4mg Orally once a day Active as directed Atenolol [facility] 82364783581 25 MG Orally Once a day Active 1/2 tablet Aspirin [facility] 52912320083 81 MG Orally Once a day Active 1 tablet Hydrocodone-Acetaminophen [facility] 75543893603 10-325 MG Orally tid Jun 18, 2017 Active 1 tablet as needed Arava ND 56929448706 20 MG Orally Once a day Aug 17, 2017 Active 1 tablet Folic Acid ND 35495591340 1 Orally Once a day Aug 17, 2017 Active 1 tablet PredniSONE [facility] 18329584074 2.5 MG Orally Once a day Aug 17, 2017 Active 1 tablet with food or milk Fosamax [facility] 07255225675 70 MG Orally Apr 16, 2017 Active 1 tablet Plaquenil [facility] 98027514069 200 Twice a day Aug 17, 2017 Active 1 tablet Humira [facility] 77679874173 40 Active INJECT 0.8ML SUBCUTANEOUSLY EVERY 2 WEEKS Vital Signs Date/Time: Jun 18, 2017 BMI 32.19 Index Weight 151.4 lbs Height 57.5 in Temperature 98.2 F Cardiac Monitoring Heart Rate 78 /min Blood Pressure Diastolic 70 mm Hg Blood Pressure Systolic 106 mm Hg Results No Known Results Summary Purpose eClinicalWorks Submission
--- OUTSIDE RECORDS SUMMARY | 2018-07-06 09:55 | XMS REPORT ---
Author Author Tiffanie Valles [facility] eClinicalWorks Address Unknown Phone Unavailable Care Team Providers Care Agricultural Engineer Name Role Phone Tiffanie Valles Unavailable Allergies, Adverse Reactions, Alerts Substance Reaction Event Type Methotrexate Info Not Available Non Drug Allergy azulfidine Info Not Available Non Drug Allergy Problems Problem Type Condition Code Onset Dates Condition Status Assessment Age-related osteoporosis without current pathological fracture M81.0 Active Problem Rash R21 Active Problem Rheumatoid arthritis with rheumatoid factor of multiple sites without organ or systems involvement M05.79 Active Problem correction current use of opiate analgesic Z79.891 Active Assessment Rheumatoid arthritis with rheumatoid factor of multiple sites without organ or systems involvement M05.79 Active Assessment Other ferry terminal agent (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 therapy Z79.899 Active Problem Age-related osteoporosis without current pathological fracture M81.0 Active Problem Other [facility] (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 therapy Z79.899 Active Medications Medication Code System Code Instructions Start Date End Date Status Dosage Hydrocodone-Acetaminophen [facility] 07334113654 10-325 MG Orally tid Jun 18, 2017 Active 1 tablet as needed PredniSONE ND 40260629207 2.5 MG Orally Once a day Aug 17, 2017 Active 1 tablet with food or milk Arava ND 48289224307 20 MG Orally Once a day Aug 17, 2017 Active 1 tablet Folic Acid ND 32859609339 1 Orally Once a day Aug 17, 2017 Active 1 tablet Aspirin ND 14576739726 81 MG Orally Once a day Active 1 tablet Plaquenil ND 14291187316 200 Twice a day Aug 17, 2017 Active 1 tablet Medrol Dose [place] 17935552446 4mg Orally once a day Active as directed Humira [facility] 51232570508 40 Active INJECT 0.8ML SUBCUTANEOUSLY EVERY 2 WEEKS Atenolol ND 63350534428 25 MG Orally Once a day Active 1/2 tablet Fosamax [facility] 03944346880 70 MG Orally Apr 16, 2017 Active 1 tablet Vital Signs Date/Time: May 19, 2017 BMI 32.04 Index Weight 153.3 lbs Height 58 in Temperature 96.6 F Cardiac Monitoring Heart Rate 74 /min Blood Pressure Diastolic 70 mm Hg Blood Pressure Systolic 102 mm Hg Results No Known Results Summary Purpose eClinicalWorks Submission
--- OUTSIDE RECORDS SUMMARY | 2018-07-06 09:55 | XMS REPORT ---
Author Author Ajith Lopez Organization eClinicalWorks Address Unknown Phone Unavailable Care Team Providers Care Math Coach Name Role Phone Ajith Lopez CP Unavailable Allergies No Known Allergies Problems Problem Type Condition Code Onset Dates Condition Status Assessment Degenerative disc disease, cervical M50.30 Active Problem Other halfway (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 therapy Z79.899 Active Assessment Degenerative disc disease, lumbar M51.36 Active Problem Degenerative disc disease, lumbar M51.36 Active Problem Anterolisthesis M43.10 Active Problem Degenerative disc disease, cervical M50.30 Active Problem Rheumatoid arthritis with rheumatoid factor of multiple sites without organ or systems involvement M05.79 Active Problem Age-related osteoporosis without current pathological fracture M81.0 Active Problem custodial current use of opiate analgesic Z79.891 Active Problem Rash R21 Active Medications No Known Medications Results No Known Results Summary Purpose [facility] Submission
--- OUTSIDE RECORDS SUMMARY | 2018-07-06 09:55 | XMS REPORT ---
Author Author hSalom Palacios Organization eClinicalWorks Address Unknown Phone Unavailable Care Team Providers Care Cooker Syrup Name Role Phone Shalom Palacios CP Unavailable Allergies No Known Allergies Problems Problem Type Condition Code Onset Dates Condition Status Problem Rash R21 Active Problem Rheumatoid arthritis with rheumatoid factor of multiple sites without organ or systems involvement M05.79 Active Problem exterminator termite current use of opiate analgesic Z79.891 Active Assessment Rheumatoid arthritis with rheumatoid factor of multiple sites without organ or systems involvement M05.79 Active Problem Age-related osteoporosis without current pathological fracture M81.0 Active Problem Other long term care pharmacist (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 therapy Z79.899 Active Medications Medication Code System Code Instructions Start Date End Date Status Dosage Arava [facility] 01321630809 20 MG Orally Once a day Aug 17, 2017 Active 1 tablet Humira [facility] 37859900297 40 Active INJECT 0.8ML SUBCUTANEOUSLY EVERY 2 WEEKS Results No Known Results Summary Purpose eClinicalWorks Submission
--- OUTSIDE RECORDS SUMMARY | 2018-07-06 09:55 | XMS REPORT ---
Author Author Ajith Lopez Organization e[employer] Address Unknown Phone Unavailable Care Team Providers Care Service Coordinator Name Role Phone Ajith Lopez CP Unavailable Allergies No Known Allergies Problems Problem Type Condition Code Onset Dates Condition Status Problem 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 helper (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 therapy Z79.899 Active Problem Degenerative disc disease, lumbar M51.36 Active Problem Anterolisthesis M43.10 Active Problem Degenerative disc disease, cervical M50.30 Active Problem Rheumatoid arthritis with rheumatoid factor of multiple sites without organ or systems involvement M05.79 Active Problem Age-related osteoporosis without current pathological fracture M81.0 Active Problem prison current use of opiate analgesic Z79.891 Active Problem Rash R21 Active Medications No Known Medications Results No Known Results Summary Purpose eClinicalWorks Submission
--- OUTSIDE RECORDS SUMMARY | 2018-07-06 09:55 | XMS REPORT ---
Author Author Tiffanie Valles [facility] eClinicalWorks Address Unknown Phone Unavailable Care Team Providers Care Oven Heater Helper Name Role Phone Tiffanie Valles Unavailable Allergies, Adverse Reactions, Alerts Substance Reaction Event Type Methotrexate Info Not Available Non Drug Allergy azulfidine Info Not Available Non Drug Allergy Problems Problem Type Condition Code Onset Dates Condition Status Assessment 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 technician (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 therapy Z79.899 Active Problem 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 technician (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 therapy Z79.899 Active Assessment [...] without current pathological fracture M81.0 Active Problem [facility] current use of opiate analgesic Z79.891 Active Problem Rash R21 Active Assessment Degenerative disc disease, cervical M50.30 Active Assessment Degenerative disc disease, lumbar M51.36 Active Assessment Anterolisthesis M43.10 Active Medications Medication Code System Code Instructions Start Date End Date Status Dosage Fosamax [facility] 09046425565 70 MG Orally Apr 16, 2017 Active 1 tablet Hydrocodone-Acetaminophen [facility] 14603432484 5-325 MG Orally TID Active 1 tablet as needed Atenolol [facility] 96033183862 25 MG Orally Once a day Active 1/2 tablet Medrol Dose Armand [facility] 56933539125 4mg Orally once a day Jul 20, 2017 Active as directed PredniSONE [facility] 41127994341 2.5 MG Orally Once a day Aug 17, 2017 Active 1 tablet with food or milk Aspirin ND 08704812632 81 MG Orally Once a day Active 1 tablet Humira [facility] 97861578206 40 Active INJECT 0.8ML SUBCUTANEOUSLY EVERY 2 WEEKS Folic Acid ND 99584326572 1 Orally Once a day Aug 17, 2017 Active 1 tablet Arava [facility] 83009922994 20 MG Orally Once a day Aug 17, 2017 Active 1 tablet Plaquenil [facility] 53070965580 200 Twice a day Aug 17, 2017 Active 1 tablet Vital Signs Date/Time: Jul 20, 2017 BMI 31.89 Index Weight 150 lbs Height 57.5 in Temperature 97.0 F Cardiac Monitoring Heart Rate 76 /min Blood Pressure Diastolic 72 mm Hg Blood Pressure Systolic 110 mm Hg Results No Known Results Summary Purpose eClinicalWorks Submission
--- OUTSIDE RECORDS SUMMARY | 2018-07-06 09:56 | XMS REPORT ---
Author Author Tiffanie Valles [facility] eClinicalWorks Address Unknown Phone Unavailable Care Team Providers Care Auto Technician Mechanic Name Role Phone Tiffanie Valles Unavailable Allergies, Adverse Reactions, Alerts Substance Reaction Event Type Methotrexate Info Not Available Non Drug Allergy azulfidine Info Not Available Non Drug Allergy Problems Problem Type Condition Code Onset Dates Condition Status Assessment Rheumatoid arthritis with rheumatoid factor of multiple sites without organ or systems involvement M05.79 Active Problem Other intermediate (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 therapy Z79.899 Active Assessment Back pain M54.9 Active Assessment 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 Active Assessment 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 62062304246 25 MG Orally Once a day Active 1/2 [address] [facility] 11984935677 81 MG Orally Once a day Active 1 tablet [address] [facility] 35221203420 2.5 MG Orally Once a day Active 1 tablet [address]enil [facility] 54465250145 200 MG Orally Twice a day Active 1 tablet with food or milk Fosamax [facility] 61604765713 70 MG Orally Once a week Active 1 tablet Diclofenac Sodium [facility] 13415418598 75 MG Orally once a day Active 1 tablet with food or milk Gabapentin [facility] 60006415951 300 MG Orally Twice a day Feb 16, 2018 Active 1 capsule before bedtime Hydrocodone-Acetaminophen [facility] 25897301835 10-325 MG Orally TID Active 1 tablet as needed Methotrexate [facility] 89137738056 2.5 MG Orally once a week Active take 4 tablets [address] [facility] 38226593569 40 every two weeks Active INJECT 0.8ML SUBCUTANEOUSLY EVERY 2 WEEKS Folic Acid [facility] 65564701070 1 MG Orally Once a day Active 1 tablet Vital Signs Date/Time: Feb 16, 2018 BMI 31.01 Index Weight 143.3 lbs Height 57 in Temperature 97.3 F Cardiac Monitoring Heart Rate 74 /min Blood Pressure Diastolic 70 mm Hg Blood Pressure Systolic 124 mm Hg Results No Known Results Summary Purpose eClinicalWorks Submission
--- OUTSIDE RECORDS SUMMARY | 2018-07-06 09:56 | XMS REPORT ---
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 Z79.899 Active Assessment Rheumatoid arthritis with rheumatoid factor of multiple sites without organ or systems involvement M05.79 Active Assessment Age-related osteoporosis without current pathological fracture M81.0 Active Problem Degenerative disc disease, lumbar M51.36 Active Problem Anterolisthesis M43.10 Active Problem Degenerative disc disease, cervical M50.30 Active Problem Rheumatoid arthritis with rheumatoid factor of multiple sites without organ or systems involvement M05.79 Active Problem Age-related osteoporosis without current pathological fracture M81.0 Active Problem correction current use of opiate analgesic Z79.891 Active Problem Rash R21 Active Medications Medication Code System Code Instructions Start Date End Date Status Dosage Hydrocodone-Acetaminophen [facility] 79093237461 10-325 MG Orally TID Feb 13, 2018 Active 1 tablet as needed Fosamax [facility] 80250911639 70 MG Orally Once a week Active 1 tablet Medrol Dose Armand [facility] 03578518046 4mg Orally once a day January 14, 2018 Active as directed Methotrexate [facility] 76159780509 2.5 MG Orally once a week Active take 4 tablets Plaquenil [facility] 85693851005 200 MG Orally Twice a day Active 1 tablet with food or milk Atenolol [facility] 13070588018 25 MG Orally Once a day Active 1/2 tablet Folic Acid [facility] 98792646923 1 MG Orally Once a day Active 1 tablet PredniSONE [facility] 17857853950 2.5 MG Orally Once a day Active 1 tablet Humira [facility] 32337909922 40 every two weeks Active INJECT 0.8ML SUBCUTANEOUSLY EVERY 2 WEEKS Aspirin [facility] 48580962350 81 MG Orally Once a day Active 1 tablet Vital Signs Date/Time: January 14, 2018 BMI 30.16 Index Weight 144.3 lbs Height 58 in Temperature 97.6 F Cardiac Monitoring Heart Rate 76 /min Blood Pressure Diastolic 78 mm Hg Blood Pressure Systolic 122 mm Hg Results No Known Results Summary Purpose eClinicalWorks Submission
--- OUTSIDE RECORDS SUMMARY | 2018-07-06 09:56 | XMS REPORT ---
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 therapy Z79.899 Active Assessment Rheumatoid arthritis with rheumatoid factor of multiple sites without organ or systems involvement M05.79 Active Assessment Rash R21 Active Assessment Shoulder pain, left M25.512 Active Problem Degenerative disc disease, lumbar M51.36 Active Problem Anterolisthesis M43.10 Active Problem Degenerative disc disease, cervical M50.30 Active Problem Rheumatoid arthritis with rheumatoid factor of multiple sites without organ or systems involvement M05.79 Active Problem Age-related osteoporosis without current pathological fracture M81.0 Active Problem longterm current use of opiate analgesic Z79.891 Active Problem Rash R21 Active Medications Medication Code System Code Instructions Start Date End Date Status Dosage Plaquenil [facility] 38861490486 200 MG Orally Twice a day Active 1 tablet with food or milk Humira [facility] 22298150429 40 every two weeks Active INJECT 0.8ML SUBCUTANEOUSLY EVERY 2 WEEKS PredniSONE ND 92963440655 2.5 MG Orally Once a day Active 1 tablet Folic Acid [facility] 58192871319 1 MG Orally Once a day Active 1 tablet Methotrexate [facility] 03416271816 2.5 MG Orally once a week October 16, 2017 Active take 4 tablets Aspirin ND 31557729829 81 MG Orally Once a day Active 1 tablet Triamcinolone Acetonide [facility] 15744933732 0.1 % Externally Twice a day November 16, 2017 Inactive 1 application to affected area Clobetasol Propionate ND 96398678237 0.05 % Externally Twice a day November 16, 2017 December 16, 2017 Active 1 application to affected area Hydrocodone-Acetaminophen [facility] 83377927834 10-325 MG Orally TID Active 1 tablet as needed Fosamax [facility] 28894061574 70 MG Orally Once a week Active 1 tablet Atenolol [facility] 31409799609 25 MG Orally Once a day Active 1/2 tablet Vital Signs Date/Time: November 16, 2017 BMI 31.59 Index Weight 146 lbs Height 57 in Temperature 97.8 F Cardiac Monitoring Heart Rate 72 /min Blood Pressure Diastolic 76 mm Hg Blood Pressure Systolic 110 mm Hg Results No Known Results Summary Purpose eClinicalWorks Submission
--- OUTSIDE RECORDS SUMMARY | 2018-07-06 09:56 | XMS REPORT ---
Author Author Ajith Lopez Organization eClinicalWorks Address Unknown Phone Unavailable Care Team Providers Care Mental Health Specialist Name Role Phone Ajith Lopez CP Unavailable Allergies No Known Allergies Problems Problem Type Condition Code Onset Dates Condition Status Problem Other terminal superintendent (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 therapy Z79.899 Active Problem Degenerative disc disease, lumbar M51.36 Active Problem Anterolisthesis M43.10 Active Problem Degenerative disc disease, cervical M50.30 Active Problem Rheumatoid arthritis with rheumatoid factor of multiple sites without organ or systems involvement M05.79 Active Problem Age-related osteoporosis without current pathological fracture M81.0 Active Problem [facility] current use of opiate analgesic Z79.891 Active Problem Rash R21 Active Medications Medication Code System Code Instructions Start Date End Date Status Dosage PredniSONE [facility] 97501087010 2.5 MG Orally Once a day Mar 16, 2018 Active 1 tablet Plaquenil [facility] 26177046022 200 MG Orally Twice a day Mar 16, 2018 Active 1 tablet with food or milk Results No Known Results Summary Purpose eClinicalWorks Submission
--- OUTSIDE RECORDS SUMMARY | 2018-07-06 09:56 | XMS REPORT ---
Author Author Ajith Lopez Organization [employer]Works Address Unknown Phone Unavailable Care Team Providers Care Semiconductor Processing Group Leader Name Role Phone Ajith Lopez CP Unavailable Allergies No Known Allergies Problems Problem Type Condition Code Onset Dates Condition Status Problem 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 control service representative (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 therapy Z79.899 Active Problem Degenerative [...]
--- OUTSIDE RECORDS SUMMARY | 2018-07-06 09:56 | XMS REPORT ---
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 Z79.899 Active Assessment long-term current use of opiate analgesic Z79.891 Active Problem Degenerative disc disease, lumbar M51.36 Active Problem Anterolisthesis M43.10 Active Problem Degenerative disc disease, cervical M50.30 Active Problem Rheumatoid arthritis with rheumatoid factor of multiple sites without organ or systems involvement M05.79 Active Problem Age-related osteoporosis without current pathological fracture M81.0 Active Problem 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 of opiate 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 Z79.891 Active Problem Rash R21 Active Medications Medication Code System Code Instructions Start Date End Date Status Dosage Clobetasol Propionate [facility] 84259204513 0.05 % Externally Twice a day November 16, 2017 December 16, 2017 Active 1 application to affected area Hydrocodone-Acetaminophen ND 06219785079 10-325 MG Orally TID Active 1 tablet as needed Methotrexate ND 85603411801 2.5 MG Orally once a week October 16, 2017 Active take 4 tablets Humira ND 94214152614 40 every two weeks Active INJECT 0.8ML SUBCUTANEOUSLY EVERY 2 WEEKS Folic Acid ND 13494342856 1 MG Orally Once a day Active 1 tablet PredniSONE ND 44373728921 2.5 MG Orally Once a day Active 1 tablet Aspirin ND 65366494524 81 MG Orally Once a day Active 1 tablet Fosamax ND 26242468871 70 MG Orally Once a week Active 1 tablet Atenolol ND 29157723629 25 MG Orally Once a day Active 1/2 tablet Plaquenil ND 14200042592 200 MG Orally Twice a day Active 1 tablet with food or milk Results No Known Results Summary Purpose eClinicalWorks Submission
--- OUTSIDE RECORDS SUMMARY | 2018-07-06 09:56 | XMS REPORT ---
Author Author Ajith Lopez eClinicalWorks Address Unknown Phone Unavailable Care Team Providers Care Jboss Architect Name Role Phone Ajith Lopez CP Unavailable Encounters Encounter Location Date Triplicate-- Hydrocodone 06/01/14 Ajith Lopez MD May 29, 2014 2m f/u Ajith Lopez MD Mar 06, 2015 JOE Lopez MD Feb 25, 2015 2m f/u Ajith Lopez MD Feb 05, 2015 refill-- Plaqueoctavial Ajith Lopez MD Apr 27, 2015 6 WK F/U Ajith Lopez MD Jul 31, 2014 PLAQUENIL Ajith Lopez MD May 15, 2015 MRI Ajith Lopez MD Aug 13, 2014 Research Ajith Lopez MD Feb 05, 2015 RA study Ajith Lopez MD Jul 31, 2014 1 MTH FOLLOW UP Ajith Lopez MD Apr 05, 2015 Estuardo Lopez MD Aug 03, 2014 1 month follow up Ajith Lopez MD May 07, 2015 2m f/u Ajith Lopez MD Mar 08, 2014 Unknown Ajith Lopez MD Jul 31, 2014 MRI Ajith Lopez MD May 13, 2015 2m f/u Ajith Lopez MD May 24, 2014 Humira Rx Per Study Ajith Lopez MD Jun 18, 2015 Refill--hydrocodone Ajith Lopez MD Jun 30, 2014 norco f/u Ajith Lopez MD September 01, 2014 JOE Lopez MD January 18, 2014 Refill- Folic acid Ajith Lopez MD Jan 30, 2014 call center agent pain Ajith Lopez MD Apr 29, 2014 Refill- Hydrocodone Ajith Lopez MD May 01, 2014 3m fu Ajith Lopez MD November 01, 2013 MRI Ajith Lopez MD December 01, 2013 2m f/u Ajith Lopez MD January 03, 2014 refill folic acid Ajith Lopez MD October 22, 2014 2m f/u Ajith Lopez MD October 05, 2014 Unknown Ajith Lopez MD May 02, 2014 MRI Ajith Lopez MD Jul 15, 2015 MRI Bi Wrist Ajith Lopez MD May 05, 2014 DEXA Ajith Lopez MD January 05, 2015 MRI Ajith Lopez MD January 26, 2015 Refill/Flare Ajith Lopez MD January 17, 2015 2m f/u Ajith Lopez MD January 04, 2015 Hydrocodone Issue Ajith Lopez MD October 25, 2014 research Ajith Lopez MD December 08, 2014 Medication not sent Ajith Lopez MD December 08, 2014 Unknown Ajith Lopez MD December 08, 2014 Problems Problem Type Condition ICD-9 Code Onset Dates Condition Status Problem Other exterminator (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 therapy Z79.899 Active Problem Age-related osteoporosis without current pathological fracture M81.0 Active Problem Rheumatoid arthritis with rheumatoid factor of multiple sites without organ or systems involvement M05.79 Active Assessment Accidental fall on or from other stairs or steps E880.9 Active Assessment Age-related osteoporosis without current pathological fracture M81.0 Active Assessment Rheumatoid arthritis with rheumatoid factor of multiple sites without organ or systems involvement M05.79 Active Social History Social History Element Qualifiers Date Reported Illicit Drugs . none Jul 09, 2015 Diet: no. Jul 09, 2015 Alcohol Screening: . Points: 0 Jul 09, 2015 Tobacco Use: . Are you a:: never smoker Jul 09, 2015 Marital Status: . Jul 09, 2015 Caffeine: yes. frequency:3 cup Jul 09, 2015 Exercise: no. Jul 09, 2015 Alcohol: no. Jul 09, 2015 Occupation: . retired Jul 09, 2015 Summary Purpose eClinicalWorks Submission
--- OUTSIDE RECORDS SUMMARY | 2018-07-06 09:56 | XMS REPORT ---
Author Author Tiffanie Valles [facility] eClinicalWorks Address Unknown Phone Unavailable Care Team Providers Care Soap Grinder Name Role Phone Tiffanie Valles Unavailable Allergies, Adverse Reactions, Alerts Substance Reaction Event Type Plaquenil Eye changes Non Drug Allergy Methotrexate Info Not Available Non Drug Allergy azulfidine Info Not Available Non Drug Allergy Problems Problem Type Condition Code Onset Dates Condition Status Assessment Rheumatoid arthritis with rheumatoid factor of multiple sites without organ or systems involvement M05.79 Active Problem Other rodent exterminator (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 therapy Z79.899 Active Assessment Back pain M54.9 Active Assessment [facility] current use of opiate analgesic Z79.891 Active Assessment Other snf (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 therapy Z79.899 Active Problem Degenerative disc disease, lumbar M51.36 Active Problem Anterolisthesis M43.10 Active Problem Degenerative disc disease, cervical M50.30 Active Problem Rheumatoid arthritis with rheumatoid factor of multiple sites without organ or systems involvement M05.79 Active Problem Age-related osteoporosis without current pathological fracture M81.0 Active Problem exterminator termite current use of opiate analgesic Z79.891 Active Problem Rash R21 Active Medications Medication Code System Code Instructions Start Date End Date Status Dosage Diclofenac Sodium [facility] 71613558688 75 MG Orally once a day Active 1 tablet with food or milk PredniSONE [facility] 70206011530 2.5 MG Orally Once a day Active 1 tablet Atenolol [facility] 81628912935 25 MG Orally Once a day Active 1/2 tablet Aspirin ND 07469533656 81 MG Orally Once a day Active 1 tablet Gabapentin [facility] 34358604349 300 MG Orally Twice a day Active 1 capsule before bedtime Clobetasol Propionate [facility] 17722859750 0.05 % Externally Twice a day Active 1 application to affected area Folic Acid ND 66686645268 1 MG Orally Once a day Active 1 tablet Hydrocodone-Acetaminophen [facility] 09551588281 10-325 MG Orally TID Active 1 tablet as needed Fosamax [facility] 22983403816 70 MG Orally Once a week Active 1 tablet Arava [facility] 63871137001 20 MG Orally Once a day Active 1 tablet Humira [facility] 77776435108 40 every two weeks Active INJECT 0.8ML SUBCUTANEOUSLY EVERY 2 WEEKS Vital Signs Date/Time: Apr 13, 2018 BMI 30.21 Index Weight 139.6 lbs Height 57 in Temperature 97.7 F Cardiac Monitoring Heart Rate 72 /min Blood Pressure Diastolic 72 mm Hg Blood Pressure Systolic 118 mm Hg Results No Known Results Summary Purpose eClinicalWorks Submission
--- OUTSIDE RECORDS SUMMARY | 2018-07-06 09:56 | XMS REPORT ---
Author Author Tiffanie Valles [facility] eClinicalWorks Address Unknown Phone Unavailable Care Team Providers Care Monotype Machinist Name Role Phone Tiffanie Valles Unavailable Allergies, Adverse Reactions, Alerts Substance Reaction Event Type Plaquenil Eye changes Non Drug Allergy Methotrexate Info Not Available Non Drug Allergy azulfidine Info Not Available Non Drug Allergy Leflunomide rash Non Drug Allergy Problems Problem Type Condition Code Onset Dates Condition Status Assessment Rheumatoid arthritis with rheumatoid factor of multiple sites without organ or systems involvement M05.79 Active Problem 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 Z79.899 Active Assessment Rash R21 Active Assessment residential current use of opiate analgesic Z79.891 Active Assessment 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 Z79.899 Active Problem Degenerative disc disease, lumbar M51.36 Active Problem Anterolisthesis M43.10 Active Problem Degenerative disc disease, cervical M50.30 Active Problem Rheumatoid arthritis with rheumatoid factor of multiple sites without organ or systems involvement M05.79 Active Problem Age-related osteoporosis without current pathological fracture M81.0 Active Problem 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 use of opiate analgesic Z79.891 Active Problem Rash R21 Active Medications Medication Code System Code Instructions Start Date End Date Status Dosage Imuran [facility][NOTE 3] 87326818263 50 MG Orally once a day Jun 15, 2018 September 13, 2018 Active as directed Hydrocodone-Acetaminophen [facility][NOTE 3] 52900152436 10-325 MG Orally TID Active 1 tablet as needed Arava [facility][NOTE 3] 81730945208 20 MG Orally Once a day Active 1 tablet Folic Acid [facility][NOTE 3] 70653290309 1 MG Orally Once a day Active 1 tablet Fosamax [facility][NOTE 3] 36512118811 70 MG Orally Once a week Active 1 tablet Aspirin [facility][NOTE 3] 30361185883 81 MG Orally Once a day Active 1 tablet PredniSONE [facility][NOTE 3] 09286578113 2.5 MG Orally Once a day Active 1 tablet Humira [facility][NOTE 3] [address]-75 40 MG/0.8ML Subcutaneous Every two weeks Active 0.8 ml Atenolol [facility][NOTE 3] 40652822879 25 MG Orally Once a day Active 1/2 tablet Clobetasol Propionate [facility][NOTE 3] 74576963246 0.05 % Externally Twice a day Active 1 application to affected area Vital Signs Date/Time: Jun 15, 2018 BMI 29 Index Weight 136 lbs Height 57 in Temperature 97.6 F Cardiac Monitoring Heart Rate 78 /min Blood Pressure Diastolic 72 mm Hg Blood Pressure Systolic 122 mm Hg Results No Known Results Summary Purpose eClinicalWorks Submission
--- OUTSIDE RECORDS SUMMARY | 2018-07-06 09:56 | XMS REPORT ---
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 Active Assessment Degenerative disc disease, lumbar M51.36 Active Assessment Other skilled nursing (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 therapy Z79.899 Active Problem Degenerative disc disease, lumbar M51.36 Active Problem Anterolisthesis M43.10 Active Problem Degenerative disc disease, cervical M50.30 Active Problem Rheumatoid arthritis with rheumatoid factor of multiple sites without organ or systems involvement M05.79 Active Problem Age-related osteoporosis without current pathological fracture M81.0 Active Problem intermediate current use of opiate analgesic Z79.891 Active Problem Rash R21 Active Medications Medication Code System Code Instructions Start Date End Date Status Dosage Aspirin [facility] 55179786139 81 MG Orally Once a day Active 1 tablet Fosamax [facility] 22623003699 70 MG Orally Once a week Active 1 tablet Levocetirizine Dihydrochloride [facility] 84325566406 5 MG Orally Once a day Active 1 tablet in the evening Humira [facility] 99996998273 40 every two weeks Active INJECT 0.8ML SUBCUTANEOUSLY EVERY 2 WEEKS Arava ND 17887200252 20 MG Orally Once a day Active 1 tablet PredniSONE [facility] 76964190881 2.5 MG Orally Once a day Active 1 tablet PredniSONE [facility] [address]-22 20 MG Orally twice a day Active 1 tablet Folic Acid [facility] 18467502915 1 MG Orally Once a day Active 1 tablet Atenolol [facility] 39491936161 25 MG Orally Once a day Active 1/2 tablet Hydrocodone-Acetaminophen [facility] 60952777759 10-325 MG Orally TID Active 1 tablet as needed Clobetasol Propionate [facility] 96574026560 0.05 % Externally Twice a day September 10, 2018 Active 1 application to affected area Vital Signs Date/Time: May 13, 2018 BMI 30.08 Index Weight 139 lbs Height 57 in Temperature 97.0 F Cardiac Monitoring Heart Rate 70 /min Blood Pressure Diastolic 70 mm Hg Blood Pressure Systolic 124 mm Hg Results No Known Results Summary Purpose eClinicalWorks Submission
--- OUTSIDE RECORDS SUMMARY | 2018-07-06 09:56 | XMS REPORT ---
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 Z79.899 Active Assessment Rheumatoid arthritis with rheumatoid factor of multiple sites without organ or systems involvement M05.79 Active Assessment Skin rash R21 Active Problem Degenerative disc disease, lumbar M51.36 Active Problem Anterolisthesis M43.10 Active Problem Degenerative disc disease, cervical M50.30 Active Problem Rheumatoid arthritis with rheumatoid factor of multiple sites without organ or systems involvement M05.79 Active Problem Age-related osteoporosis without current pathological fracture M81.0 Active 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 opiate 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 Z79.891 Active Problem Rash R21 Active Medications Medication Code System Code Instructions Start Date End Date Status Dosage Arava [facility] 01565059091 20 MG Orally Once a day Aug 17, 2017 Active 1 tablet Hydrocodone-Acetaminophen [facility] 62234335237 5-325 MG Orally TID September 19, 2017 Active 1 tablet as needed Fosamax [facility] 23949841150 70 MG Orally once a day Apr 16, 2017 Active 1 tablet Atenolol [facility] 67945357871 25 MG Orally Once a day Active 1/2 tablet PredniSONE [facility] 52590371738 2.5 MG Orally Once a day November 18, 2017 Active 1 tablet Folic Acid [facility] 26667471032 1 MG Orally Once a day November 18, 2017 Active 1 tablet Aspirin [facility] 80185065925 81 MG Orally Once a day Active 1 tablet Plaquenil [facility] 08554641523 200 Twice a day November 18, 2017 Active 1 tablet Humira [facility] 25285074544 40 every two weeks Active INJECT 0.8ML SUBCUTANEOUSLY EVERY 2 WEEKS Triamcinolone Acetonide NDC 65996954091 0.1 % Externally Twice a day Aug 20, 2017 Active 1 application to affected area Vital Signs Date/Time: Aug 20, 2017 BMI 31.43 Index Weight 150.4 lbs Height 58 in Temperature 97.1 F Cardiac Monitoring Heart Rate 68 /min Blood Pressure Diastolic 68 mm Hg Blood Pressure Systolic 100 mm Hg Results No Known Results Summary Purpose eClinicalWorks Submission
--- OUTSIDE RECORDS SUMMARY | 2018-07-06 09:56 | XMS REPORT ---
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79 Active Problem Age-related osteoporosis without current pathological fracture M81.0 Active Problem 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 use of opiate analgesic Z79.891 Active Problem Rash R21 Active Medications Medication Code System Code Instructions Start Date End Date Status Dosage Atenolol ND 74335756737 25 MG Orally Once a day Active 1/2 tablet Folic Acid ND 64501250875 1 MG Orally Once a day Active 1 tablet Methotrexate ND 73871350144 2.5 MG Orally once a week Inactive take 4 tablets Diclofenac Sodium ND 40416434284 75 MG Orally once a day Active 1 tablet with food or milk Humira ND 52372775688 40 every two weeks Active INJECT 0.8ML SUBCUTANEOUSLY EVERY 2 WEEKS Fosamax ND 85126488157 70 MG Orally Once a week Active 1 tablet Arava ND 22473350354 20 MG Orally Once a day Mar 16, 2018 Jun 14, 2018 Active 1 tablet PredniSONE ND 90795114654 2.5 MG Orally Once a day Active 1 tablet Hydrocodone-Acetaminophen [facility] 07025537316 10-325 MG Orally TID Active 1 tablet as needed Plaquenil [facility] 08023030363 200 MG Orally Twice a day Active 1 tablet with food or milk Aspirin [facility] 57523587115 81 MG Orally Once a day Active 1 tablet Clobetasol Propionate [facility] 56167606981 0.05 % Externally Twice a day Active 1 application to affected area Gabapentin [facility] 03537261820 300 MG Orally Twice a day Active 1 capsule before bedtime Vital Signs Date/Time: Mar 16, 2018 BMI 30.49 Index Weight 140.9 lbs Height 57 in Temperature 98.0 F Cardiac Monitoring Heart Rate 70 /min Blood Pressure Diastolic 70 mm Hg Blood Pressure Systolic 122 mm Hg Results No Known Results Summary Purpose eClinicalWorks Submission
--- OUTSIDE RECORDS SUMMARY | 2018-07-06 09:56 | XMS REPORT ---
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
--- OUTSIDE RECORDS SUMMARY | 2018-07-06 09:56 | XMS REPORT ---
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
--- OUTSIDE RECORDS SUMMARY | 2018-07-06 09:56 | XMS REPORT ---
Author Author Shalom Palacios Organization eClinicalWorks Address Unknown Phone Unavailable Care Team Providers Care Set Up / Operator Name Role Phone Shalom Palacios CP Unavailable Allergies No Known Allergies Problems Problem Type Condition Code Onset Dates Condition Status Problem Other intermediate frame tender (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 therapy Z79.899 Active Problem Degenerative [...] Instructions Start Date End Date Status Dosage Humira [facility] 08118534291 40 MG/0.8ML Jun 09, 2018 Active INJECT 0.8ML SUBCUTANEOUSLY EVERY 2 WEEKS Results No Known Results Summary Purpose eClinicalWorks Submission
--- OUTSIDE RECORDS SUMMARY | 2018-07-06 09:56 | XMS REPORT ---
Author Author Ajith Lopez Organization eClinicalWorks Address Unknown Phone Unavailable Care Team Providers Care Geospatial Engineer Name Role Phone Ajith Lopez CP [...]
--- OUTSIDE RECORDS SUMMARY | 2018-07-06 09:57 | XMS REPORT ---
Author Author Ajith Lopez eClinicalWorks Address Unknown Phone Unavailable Care Team Providers Care Material Requisitioner Name Role Phone Ajith Lopez CP Unavailable [...] acid Ajith Lopez MD Jan 30, 2014 medical administrative technician pain Ajith Lopez MD Apr 29, 2014 Refill- Hydrocodone Ajith Lopez MD May 01, 2014 3m fu Ajith Lopez MD November 01, 2013 MRI Ajith Lopez MD December 01, 2013 2m f/u Ajith Lopez MD January 03, 2014 refill folic acid Ajith Lopez MD October 22, 2014 2m f/u Ajith Lopez MD October 05, 2014 Humira Rx Per Protocol Ajith Lopez MD October 01, 2015 Unknown Ajith Lopez MD May 02, 2014 MRI Ajith Lopez MD Jul 15, 2015 MRI Bi Wrist Ajith Lopez MD May 05, 2014 1 month follow up Ajith Lopez MD Aug 08, 2015 1 month follow up Ajith Lopez MD October 08, 2015 MRI Ajith Lopez MD October 21, 2015 DEXA Ajith Lopez MD January 05, 2015 FU Ajith Lopez MD November 13, 2015 MRI Ajith Lopez MD January 26, 2015 1 mo f/u Ajith Lopez MD December 13, 2015 Refill/Flare Ajith Lopez MD January 17, 2015 1 mo f/u Ajith Lopez MD January 10, 2016 2m f/u Ajith Lopez MD January 04, 2015 B 12 INJECTION Ajith Lopez MD Feb 04, 2016 Hydrocodone Issue Ajith Lopez MD October 25, 2014 research Ajith Lopez MD December 08, 2014 Medication not sent Ajith Lopez MD December 08, 2014 Unknown Ajith Lopez MD December 08, 2014 Problems Problem Type Condition ICD-9 Code Onset Dates Condition Status Problem Other fdc (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 therapy Z79.899 Active Problem Age-related osteoporosis without current pathological fracture M81.0 Active Problem Rheumatoid arthritis with rheumatoid factor of multiple sites without organ or systems involvement M05.79 Active Social History Social History Element Qualifiers Date Reported Illicit Drugs . none January 10, 2016 Diet: no. January 10, 2016 Alcohol Screening: . Points: 0 January 10, 2016 Tobacco Use: . Are you a:: never smoker January 10, 2016 Marital Status: . January 10, 2016 Caffeine: yes. frequency:3 cup January 10, 2016 Exercise: no. January 10, 2016 Alcohol: no. January 10, 2016 Occupation: . retired January 10, 2016 Summary Purpose eClinicalWorks Submission
--- OUTSIDE RECORDS SUMMARY | 2018-07-06 09:57 | XMS REPORT ---
Author Author Ajith Lopez eClinicalWorks Address Unknown Phone Unavailable Care Team Providers Care Car Packer Name Role Phone Ajith Lopez CP Unavailable Encounters Encounter Location Date Triplicate-- Hydrocodone 06/01/14 Ajith Lopez MD May 29, 2014 6 WK F/U Ajith Lopez MD Jul 31, 2014 MRI Ajith Lopez MD Aug 13, 2014 RA study Ajith Lopez MD Jul 31, 2014 Estuardo Lopez MD Aug 03, 2014 2m f/u Ajith Lopez MD Mar 08, 2014 Unknown Ajith Lopez MD Jul 31, 2014 2m f/u Ajith Lopez MD May 24, 2014 Refill--hydrocodone Ajith Lopez MD Jun 30, 2014 norco f/u Ajith Lopez MD September 01, 2014 MRI Ajith Lopez MD January 18, 2014 Refill- Folic acid Ajith Lopez MD Jan 30, 2014 bookkeeping service sales agent pain Ajith Lopze MD Apr 29, 2014 Refill- Hydrocodone Ajith Lopez MD May 01, 2014 3m fu Ajith Lopez MD November 01, 2013 MRI Ajith Lopez MD December 01, 2013 2m f/u Ajith Lopez MD January 03, 2014 refill folic acid Ajith Lopez MD October 22, 2014 2m f/u Ajith Lopez MD October 05, 2014 Unknown Ajith Lopez MD May 02, 2014 MRI Bi Wrist Ajith Lopez MD May [...] Unknown Ajith Lopez MD December 08, 2014 2m f/u Ajith Lopez MD Mar 06, 2015 JOE Lopez MD Feb 25, 2015 2m f/u Ajith Lopez MD Feb 05, 2015 refill-- Dorotanil Ajith Lopez MD Apr 27, 2015 [place] Ajith Lopez MD May 15, 2015 Rebeca Lopez MD Feb 05, 2015 1 MTH FOLLOW UP Ajith Lopez MD Apr 05, 2015 1 month follow up Ajith Lopez MD May 07, 2015 JOE Lopez MD May 13, 2015 Humira Rx Per Study Ajith Lopez MD Jun 18, 2015 Humira Rx Per Protocol Ajith Lopez MD October 01, 2015 JOE Lopez MD Jul 15, 2015 1 month follow up Ajith Lopez MD Aug 08, 2015 1 month follow up Ajith Lopez MD October 08, 2015 JOE Lopez MD October 21, 2015 FU Ajith Lopez MD November 13, 2015 1 mo f/u Ajith Lopez MD December 13, 2015 1 mo f/u Aijth Lopez MD January 10, 2016 B 12 INJECTION Ajith Lopez MD Feb 04, 2016 Unknown Ajith Lopez MD Feb 05, 2016 Problems Problem Type Condition ICD-9 Code Onset Dates Condition Status Problem 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
--- OUTSIDE RECORDS SUMMARY | 2018-07-06 09:57 | XMS REPORT ---
Author Author Ajith Lopez eClinicalWorks Address Unknown Phone Unavailable Care Team Providers Care Application Administrator Name Role Phone Ajith Lopez CP Unavailable Encounters Encounter Location Date Triplicate-- Hydrocodone 06/01/14 Ajith Lopez MD May 29, 2014 2m f/u Ajith Lopez MD Mar 06, 2015 JOE Lopez MD Feb 25, 2015 2m f/u Ajith Lopez MD Feb 05, 2015 refill-- Plaqueoctaival Ajith Lopez MD Apr 27, 2015 6 [...] acid Ajith Lopez MD Jan 30, 2014 order desk caller pain Ajith Lopez MD Apr 29, 2014 [...] December 08, 2014 Medication not sent Ajith Loepz MD December 08, 2014 Unknown Ajith Lopez MD December 08, 2014 Problems Problem Type Condition ICD-9 Code Onset Dates Condition Status Problem 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 none Aug 08, 2015 Diet: no. Aug 08, 2015 Alcohol Screening: . Points: 0 Aug 08, 2015 Tobacco Use: . Are you a:: never smoker Aug 08, 2015 Marital Status: . Aug 08, 2015 Caffeine: yes. frequency:3 cup Aug 08, 2015 Exercise: no. Aug 08, 2015 Alcohol: no. Aug 08, 2015 Occupation: . retired Aug 08, 2015 Summary Purpose eClinicalWorks Submission
--- OUTSIDE RECORDS SUMMARY | 2018-07-06 09:57 | XMS REPORT ---
Author Author Shalom Palacios [facility] eClinicalWorks Address Unknown Phone Unavailable Care Team Providers Care Facility Practice Specialist Name Role Phone Shalom Palacios Unavailable Allergies, Adverse Reactions, Alerts Substance Reaction Event Type Methotrexate Info Not Available Non Drug Allergy azulfidine Info Not Available Non Drug Allergy Encounters Encounter Location Date Triplicate-- Hydrocodone 06/01/14 Ajith Lopez MD May 29, 2014 2m f/u Ajith Lopez MD Mar 06, 2015 JOE Lopez MD Feb 25, 2015 2m f/u Ajith Lopez MD Feb 05, 2015 refill-- [place] Ajith Lopez MD Apr 27, 2015 6 WK F/U Ajith Lopez MD Jul 31, 2014 [place] Ajith Lopez MD May 15, 2015 JOE Lopez MD Aug 13, 2014 Research Ajith Lopez MD Feb 05, 2015 study Ajith Lopez MD Jul 31, 2014 1 MTH FOLLOW UP Ajith Lopez MD Apr 05, 2015 Estuardo Lopez MD Aug 03, 2014 1 month follow up Ajith Lopez MD May 07, 2015 2m f/rusty Lopez MD Mar 08, 2014 Unknown Ajith Lopez MD Jul 31, 2014 JOE Lopez MD May 13, 2015 2m f/u Ajith Lopez MD May 24, 2014 Humira Rx Per Study Ajith Lopez MD Jun 18, 2015 Refill--hydrocodone Ajith Lopez MD Jun 30, 2014 norco f/u Ajith Lopez MD September 01, 2014 JOE Lopez MD January 18, 2014 Refill- Folic acid Ajith Lopez MD Jan 30, 2014 city treasurer pain Ajith Lopez MD Apr 29, 2014 [...] up Ajith Lopez MD October 08, 2015 DEXA Ajith Lopez MD January 05, [...] Condition ICD-9 Code Onset Dates Condition Status Assessment Hypothyroidism E03.9 Active Problem 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 (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 therapy Z79.899 Active Problem Age-related osteoporosis without current pathological fracture M81.0 Active Problem Rheumatoid arthritis with rheumatoid factor of multiple sites without organ or systems involvement M05.79 Active Assessment Other half-way (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 therapy Z79.899 Active Assessment Vitamin D deficiency E55.9 Active Assessment Age-related osteoporosis without current pathological fracture M81.0 Active Assessment Rheumatoid arthritis of multiple sites without organ or system involvement with positive rheumatoid factor M05.79 Active Medications Medication Code System Code Instructions Start Date End Date Status Dosage [facility] [address]-55 2 MG Orally prn Active 1 tablet as needed [facility] [address]-40 70 MG Orally once a week Jul 09, 2015 January 05, 2016 Active 1 tablet Methotrexate [facility] 90581575335 2.5 Active TAKE 6 TABLETS BY MOUTH ONCE WEEKLY Aspirin [facility] [address]-09 81 MG Orally Once a day Active 1 tablet Plaquenil [facility] [address]-02 200 MG Orally twice a day Active 1 TABLET PredniSONE [facility] [address]-60 2.5 MG Orally Twice a day Active 1 tablet with food or milk Humira [facility] [address]-16 40 MG/0.8ML Subcutaneous q2wk Jun 18, 2015 Active 0.8 ml Folic Acid [facility] [address]-89 1 MG Orally Once a day Active 1 tablet Atenolol [facility] [address]-42 25 MG Orally Once a day Active 1 tablet Social History Social History Element Qualifiers Date Reported Illicit Drugs . none October 08, 2015 Diet: no. October 08, 2015 Alcohol Screening: . Points: 0 October 08, 2015 Tobacco Use: . Are you a:: never smoker October 08, 2015 Marital Status: . October 08, 2015 Caffeine: yes. frequency:3 cup October 08, 2015 Exercise: no. October 08, 2015 Alcohol: no. October 08, 2015 Occupation: . retired October 08, 2015 Vital Signs Date/Time: October 08, 2015 Weight 155 lbs Height 58 in Temperature 98.1 F Cardiac Monitoring Heart Rate 66 /min Blood Pressure Diastolic 72 mm Hg Blood Pressure Systolic 112 mm Hg Results COMPREHENSIVE METABOLIC PANEL W/EGFR CALCIUM(-8.6-10.4 mg/dL) 9.3 CARBON DIOXIDE(-19-30 mmol/L) 25 ALT(-6-29 U/L) 19 CREATININE(-0.60-0.93 mg/dL) 0.72 AST(-10-35 U/L) 21 eGFR NON-AFR. ICELANDIC(-> OR=60 mL/min/1.73m2) 85 ALKALINE PHOSPHATASE(-33-130 U/L) 64 eGFR (-> OR=60 mL/min/1.73m2) 98 BILIRUBIN, TOTAL(-0.2-1.2 mg/dL) 0.5 BUN/CREATININE RATIO(-6-22 (calc)) NOT APPLICABLE ALBUMIN/GLOBULIN RATIO(-1.0-2.5 (calc)) 1.7 SODIUM(-135-146 mmol/L) 141 GLOBULIN(-1.9-3.7 g/dL (calc)) 2.3 POTASSIUM(-3.5-5.3 mmol/L) 4.0 GLUCOSE(-65-99 mg/dL) 85 CHLORIDE(-98-110 mmol/L) 106 ALBUMIN(-3.6-5.1 g/dL) 4.0 UREA NITROGEN (BUN)(-7-25 mg/dL) 10 PROTEIN, TOTAL(-6.1-8.1 g/dL) 6.3 SED RATE BY MODIFIED WESTERGREN SED RATE BY MODIFIED WESTERGREN(-< OR=30 mm/h) 2 C-REACTIVE PROTEIN C-REACTIVE PROTEIN(-<0.80 mg/dL) 0.32 CBC (INCLUDES DIFF/PLT) MCHC(-32.0-36.0 g/dL) 32.7 MCH(-27.0-33.0 pg) 31.9 PLATELET COUNT(-140-400 Thousand/uL) 225 RDW(-11.0-15.0 %) 16.9 BASOPHILS(- %) 0.4 ABSOLUTE NEUTROPHILS(-3481-4879 cells/uL) 3380 ABSOLUTE LYMPHOCYTES(-850-3900 cells/uL) 2734 MPV(-7.5-11.5 fL) 9.5 ABSOLUTE BASOPHILS(-0-200 cells/uL) 28 HEMATOCRIT(-35.0-45.0 %) 39.5 NEUTROPHILS(- %) 47.6 MCV(-80.0-100.0 fL) 97.6 RED BLOOD CELL COUNT(-3.80-5.10 Million/uL) 4.05 ABSOLUTE MONOCYTES(-200-950 cells/uL) 533 ABSOLUTE EOSINOPHILS(-15-500 cells/uL) 426 HEMOGLOBIN(-11.7-15.5 g/dL) 12.9 EOSINOPHILS(- %) 6.0 WHITE BLOOD CELL COUNT(-3.8-10.8 Thousand/uL) 7.1 LYMPHOCYTES(- %) 38.5 MONOCYTES(- %) 7.5 Summary Purpose eClinicalWorks Submission
--- OUTSIDE RECORDS SUMMARY | 2018-07-06 09:57 | XMS REPORT ---
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 Ajith Lopez MD Apr 29, 2014 [...] Unknown Ajith Lopez MD May 02, 2014 JOE Lopez MD Jul 15, 2015 MRI Bi Wrist Ajith Lopez MD May 05, 2014 1 month follow up Ajith Lopez MD Aug 08, 2015 1 month follow up Ajith Lopez MD October 08, 2015 JOE Lopez MD October 21, 2015 DEXA Ajith Lopez MD January 05, 2015 FU Ajith Lopez MD November 13, 2015 JOE Lopez MD January 26, 2015 1 mo f/u Ajith Lopez MD December 13, 2015 Refill/Flare Ajith Lopez MD January 17, 2015 2m f/u Ajith Lopez MD January 04, 2015 Hydrocodone Issue Ajith Lopez MD October 25, 2014 research Ajith Lopez MD December 08, 2014 Medication not sent Aijth Lopez MD December 08, 2014 Unknown Ajith Lopez MD December 08, 2014 Problems Problem Type Condition ICD-9 Code Onset Dates Condition Status Problem 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 housekeeping 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 (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 therapy Z79.899 Active Problem Age-related osteoporosis without current pathological fracture M81.0 Active Problem Rheumatoid arthritis with rheumatoid factor of multiple sites without organ or systems involvement M05.79 Active Assessment Age-related osteoporosis without current pathological fracture M81.0 Active Assessment Rheumatoid arthritis with rheumatoid factor of multiple sites without organ or systems involvement M05.79 Active Assessment Other housekeeping coordinator (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 therapy Z79.899 Active Medications Medication Code System Code Instructions Start Date End Date Status Dosage Methotrexate [facility] 60685782340 2.5 Active TAKE 8 TABLETS BY MOUTH ONCE WEEKLY PredniSONE [facility] [address]-94 2.5 MG Orally Twice a day Active 1 tablet with food or milk Aspirin [facility] [address]-33 81 MG Orally Once a day Active 1 tablet Atenolol [facility] [address]-38 25 MG Orally Once a day Active 1 tablet Plaquenil [facility] 20993611824 200 Active TAKE ONE TABLET BY MOUTH TWICE A DAY Humira [facility] 28561471644 40 Active INJECT 0.8ML SUBCUTANEOUSLY EVERY 2 WEEKS Fosamax [facility] [address]-66 70 MG Orally once a week Jul 09, 2015 Active 1 tablet Hydrocodone-Acetaminophen [facility] [address]-16 10-325 MG Orally every 6 hrs Active 1 tablet as needed Tizanidine HCl [facility] [address]-68 2 MG Orally prn Active 1 tablet as needed Folic Acid [facility] 29808758423 1 Active TAKE ONE TABLET BY MOUTH DAILY Social History Social History Element Qualifiers Date Reported Illicit Drugs . none December 13, 2015 Diet: no. December 13, 2015 Alcohol Screening: . Points: 0 December 13, 2015 Tobacco Use: . Are you a:: never smoker December 13, 2015 Marital Status: . December 13, 2015 Caffeine: yes. frequency:3 cup December 13, 2015 Exercise: no. December 13, 2015 Alcohol: no. December 13, 2015 Occupation: . retired December 13, 2015 Vital Signs Date/Time: December 13, 2015 Weight 152.3 lbs Height 58.5 in Temperature 97.4 F Cardiac Monitoring Heart Rate 76 /min Blood Pressure Diastolic 72 mm Hg Blood Pressure Systolic 128 mm Hg Summary Purpose eClinicalWorks Submission
--- OUTSIDE RECORDS SUMMARY | 2018-07-06 09:57 | XMS REPORT ---
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.899 Active Problem Age-related osteoporosis without current pathological fracture M81.0 Active Problem Rheumatoid arthritis with rheumatoid factor of multiple sites without organ or systems involvement M05.79 Active Assessment Age-related osteoporosis without current pathological fracture M81.0 Active Assessment Rheumatoid arthritis with rheumatoid factor of multiple sites without organ or systems involvement M05.79 Active Assessment 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 control technician (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 therapy Z79.899 Active Medications Medication Code System Code Instructions Start Date End Date Status Dosage [facility] [address]-88 81 MG Orally Once a day Active 1 tablet Tizanidine HCl [facility] [address]-49 2 MG Orally prn Active 1 tablet as needed Humira [facility] [address]-09 40 MG/0.8ML Subcutaneous q2wk Jun 18, 2015 Active 0.8 ml Folic Acid [facility] 67360449325 1 Active TAKE ONE TABLET BY MOUTH DAILY Plaquenil [facility] [address]-84 200 MG Orally twice a day Active 1 TABLET Fosamax [facility] [address]-81 70 MG Orally once a week Jul 09, 2015 January 05, 2016 Active 1 tablet PredniSONE [facility] [address]-55 2.5 MG Orally Twice a day Active 1 tablet with food or milk Methotrexate [facility] 77616278858 2.5 Active TAKE 8 TABLETS BY MOUTH ONCE WEEKLY Hydrocodone-Acetaminophen [facility] [address]-71 10-325 MG Orally every 6 hrs Active 1 tablet as needed Atenolol [facility] [address]-55 25 MG Orally Once a day Active 1 tablet Social History Social History Element Qualifiers Date Reported Illicit Drugs . none November 13, 2015 Diet: no. November 13, 2015 Alcohol Screening: . Points: 0 November 13, 2015 Tobacco Use: . Are you a:: never smoker November 13, 2015 Marital Status: . November 13, 2015 Caffeine: yes. frequency:3 cup November 13, 2015 Exercise: no. November 13, 2015 Alcohol: no. November 13, 2015 Occupation: . retired November 13, 2015 Vital Signs Date/Time: November 13, 2015 Weight 154 lbs Height 57 in Temperature 98.6 F Cardiac Monitoring Heart Rate 72 /min Blood Pressure Diastolic 72 mm Hg Blood Pressure Systolic 114 mm Hg Summary Purpose eClinicalWorks Submission
--- OUTSIDE RECORDS SUMMARY | 2018-07-06 09:57 | XMS REPORT ---
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 Ajith Lopez MD Apr 29, 2014 [...] Code Onset Dates Condition Status Problem Other custodial (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 therapy Z79.899 Active Problem Age-related osteoporosis without current pathological fracture M81.0 Active Problem Rheumatoid arthritis with rheumatoid factor of multiple sites without organ or systems involvement M05.79 Active Assessment Rheumatoid arthritis with rheumatoid factor of multiple sites without organ or systems involvement M05.79 Active Assessment Other custodial (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 therapy Z79.899 Active Medications Medication Code System Code Instructions Start Date End Date Status Dosage [facility] [address]-62 2.5 MG Orally Once a day Active 1 tablet with food or milk Aspirin [facility] [address]-68 81 MG Orally Once a day Active 1 tablet Humira [facility] 15367140099 40 Active INJECT 0.8ML SUBCUTANEOUSLY EVERY 2 WEEKS Folic Acid [facility] 38793637977 1 Active TAKE ONE TABLET BY MOUTH DAILY Atenolol [facility] [address]-54 25 MG Orally Once a day Active 1 tablet Methotrexate [facility] 89242101190 2.5 Active TAKE 8 TABLETS BY MOUTH ONCE WEEKLY Plaquenil [facility] 92319100236 200 Active TAKE ONE TABLET BY MOUTH TWICE A DAY Hydrocodone-Acetaminophen [facility] [address]-93 10-325 MG Orally every 6 hrs Feb 03, 2016 Active 1 tablet as needed Fosamax [facility] [address]-82 70 MG Orally once a week Jul 09, 2015 Active 1 tablet Tizanidine HCl [facility] [address]-67 2 MG Orally prn Active 1 tablet as needed Social History Social History Element Qualifiers Date [...] 2016 Occupation: . retired January 10, 2016 Vital Signs Date/Time: January 10, 2016 Weight 154 lbs Height 57 in Temperature 97.5 F Cardiac Monitoring Heart Rate 72 /min Blood Pressure Diastolic 72 mm Hg Blood Pressure Systolic 118 mm Hg Summary Purpose eClinicalWorks Submission
--- OUTSIDE RECORDS SUMMARY | 2018-07-06 09:57 | XMS REPORT ---
Author Author Ajith Lopez eClinicalWorks Address Unknown Phone Unavailable Care Team Providers Care Women Designer Name Role Phone Ajith Lopez CP Unavailable [...] Lopez MD Jan 30, 2014 call center nurse pain Ajith Lopez MD Apr 29, 2014 [...] Lopez MD October 25, 2014 research Ajith Loepz MD December 08, 2014 Medication not sent Ajith Lopez MD December 08, 2014 Unknown Ajith Lopez MD December 08, 2014 Problems Problem Type Condition ICD-9 Code Onset Dates Condition Status Problem Other halfway (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 therapy Z79.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 2015 Occupation: . retired October 08, 2015 Summary Purpose eClinicalWorks Submission
--- OUTSIDE RECORDS SUMMARY | 2018-07-06 09:57 | XMS REPORT ---
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 Z79.899 Active Problem Age-related osteoporosis without current pathological fracture M81.0 Active Problem Rheumatoid arthritis with rheumatoid factor of multiple sites without organ or systems involvement M05.79 Active Assessment Encounter for long-term (current) use of other high-risk medications Z79.899 Active Assessment Rheumatoid arthritis of multiple sites without organ or system involvement with positive rheumatoid factor M05.79 Active Assessment Age-related osteoporosis without current pathological fracture M81.0 Active Medications Medication Code System Code Instructions Start Date End Date Status Dosage Atenolol [facility] [address]-96 25 MG Orally Once a day Active 1 tablet Hydrocodone-Acetaminophen [facility] [address]-19 10-325 MG Orally every 6 hrs September 07, 2015 Active 1 tablet as needed Folic Acid [facility] [address]-32 1 MG Orally Once a day Active 1 tablet Methotrexate [facility] 20162993993 2.5 Active TAKE 6 TABLETS BY MOUTH ONCE WEEKLY Tizanidine HCl [facility] [address]-22 2 MG Orally prn Active 1 tablet as needed Aspirin [facility] [address]-71 81 MG Orally Once a day Active 1 tablet Fosamax [facility] [address]-08 70 MG Orally once a week Jul 09, 2015 January 05, 2016 Active 1 tablet PredniSONE [facility] [address]-62 2.5 MG Orally Twice a day Active 1 tablet with food or milk Plaquenil [facility] [address]-55 200 MG Orally twice a day Active 1 TABLET Humira [facility] [address]-20 40 MG/0.8ML Subcutaneous q2wk Jun 18, 2015 November 15, 2015 Active 0.8 ml Social History Social [...] retired October 08, 2015 Vital Signs Date/Time: Aug 08, 2015 Weight 160 lbs Height 58 in Temperature 98.2 F Cardiac Monitoring Heart Rate 64 /min Blood Pressure Diastolic 70 mm Hg Blood Pressure Systolic 120 mm Hg Summary Purpose eClinicalWorks Submission
--- OUTSIDE RECORDS SUMMARY | 2018-07-06 09:57 | XMS REPORT ---
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 Z79.899 Active Problem Age-related osteoporosis without current pathological fracture M81.0 Active Problem Rheumatoid arthritis with rheumatoid factor of multiple sites without organ or systems involvement M05.79 Active Assessment Other rat exterminator (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 therapy Z79.899 Active Assessment Rheumatoid arthritis with rheumatoid factor of multiple sites without organ or systems involvement M05.79 Active Assessment Age-related osteoporosis without current pathological fracture M81.0 Active Medications Medication Code System Code Instructions Start Date End Date Status Dosage Hydrocodone-Acetaminophen [facility] 83045861392 10-325 Orally every 6 hrs Active take one tablet Folic Acid [facility] [address]-19 1 MG Orally Once a day Active 1 tablet Aspirin [facility] [address]-76 81 MG Orally Once a day Active 1 tablet Medrol ([place]) [facility] [address]-39 4 MG Orally as diercted Apr 05, 2015 Active as directed Plaquenil [facility] [address]-38 200 MG Orally Once a day Active 1 TABLET Prilosec [facility] [address]-45 40 MG Orally Once a day Active 1 capsule Tizanidine HCl [facility] [address]-38 2 MG Orally prn Active 1 tablet as needed Atenolol [facility] [address]-92 25 MG Orally Once a day Active 1 tablet Methotrexate [facility] 56521374844 2.5 Active TAKE 6 TABLETS BY MOUTH ONCE WEEKLY Social History Social History Element Qualifiers Date [...] 2015 Occupation: . retired Jul 09, 2015 Vital Signs Date/Time: May 07, 2015 Weight 157 lbs Height 57 in Temperature 98.6 F Cardiac Monitoring Heart Rate 80 /min Blood Pressure Diastolic 78 mm Hg Blood Pressure Systolic 130 mm Hg Summary Purpose eClinicalWorks Submission
--- OUTSIDE RECORDS SUMMARY | 2018-07-06 09:58 | XMS REPORT ---
Author Author Tiffanie Valles [facility] eClinicalWorks Address Unknown Phone Unavailable Care Team Providers Care Supervisor Dehydrogenation Name Role Phone Tiffanie Valles CP Unavailable Allergies, Adverse Reactions, Alerts Substance Reaction Event Type Methotrexate Info Not Available Non Drug Allergy azulfidine Info Not Available Non Drug Allergy Encounters Encounter Location Date Triplicate-- Hydrocodone 06/01/14 Ajith Lopez MD May 29, 2014 DEXA Ajith Lopez MD Apr 09, 2016 6 WK F/U Ajith Lopez MD Jul 31, 2014 one month follow up Ajith Lopez MD Apr 16, 2016 MRI Ajith Lopez MD Aug 13, 2014 RA study Ajith Lopez MD Jul 31, 2014 Estuardo Lopez MD Aug 03, 2014 2m f/u Ajith Lopez MD Mar 08, 2014 Unknown Ajith Lopez MD Jul 31, 2014 2m f/u Ajith Lopez MD May 24, 2014 1 mo f/u Ajith Lopez MD Feb 19, 2016 Refill--hydrocodone Ajith Lopez MD Jun 30, 2014 norco f/u Ajith Lopez MD September 01, 2014 JOE Lopez MD January 18, 2014 Refill- Folic acid Ajith Lopez MD Jan 30, 2014 weight caller pain Ajith Lopez MD Apr 29, 2014 Refill- Hydrocodone Ajith Lopez MD May 01, 2014 3m fu Ajith Lopez MD November 01, 2013 JOE Lopez MD December 01, 2013 2m f/u [...] f/u Ajith Lopez MD Mar 06, 2015 MRI Ajith Lopez MD Feb 25, 2015 2m f/u Ajith Lopez MD Feb 05, 2015 refill-- Plaquenil Ajith Lopez MD Apr 27, 2015 PLAQUENIL Ajith Lopez MD May 15, 2015 Research Ajith Lopez MD Feb 05, 2015 1 MTH [...] MD December 13, 2015 1 mo f/u Ajith Lopez MD January 10, 2016 B 12 INJECTION Ajith Lopez MD Feb 04, 2016 Unknown Ajith Lopez MD Feb 05, 2016 Problems Problem Type Condition ICD-9 Code Onset Dates Condition Status Assessment Skin rash R21 Active Problem Other shelter (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 therapy Z79.899 Active Problem Age-related osteoporosis without current pathological fracture M81.0 Active Problem Rheumatoid arthritis with rheumatoid factor of multiple sites without organ or systems involvement M05.79 Active Assessment 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 terminal 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 (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 therapy Z79.899 Active Assessment intermission coordinator (current) use of opiate analgesic Z79.891 Active Assessment Rheumatoid arthritis with rheumatoid factor of multiple sites without organ or systems involvement M05.79 Active Assessment Age-related osteoporosis without current pathological fracture M81.0 Active Medications Medication Code System Code Instructions Start Date End Date Status Dosage PredniSONE [facility] [address]-27 2.5 MG Orally Once a day Active 1 tablet with food or milk Atenolol [facility] [address]-89 25 MG Orally Once a day Active 1 tablet Fosamax [facility] [address]-60 70 MG Orally Once a week October 13, 2016 Active 1 tablet Humira [facility] 77806299447 40 Active INJECT 0.8ML SUBCUTANEOUSLY EVERY 2 WEEKS Plaquenil [facility] [address]-48 200 MG Orally Once a day October 13, 2016 Active 1 tablet with food or milk Folic Acid [facility] [address]-68 1 MG Orally Once a day October 13, 2016 Active 1 tablet Tizanidine HCl [facility] [address]-38 2 MG Orally prn Active 1 tablet as needed Aspirin [facility] [address]-80 81 MG Orally Once a day Active 1 tablet Triamcinolone Acetonide [facility] [address]-59 0.025 % Externally Twice a day Apr 16, 2016 Active 1 application to affected area Arava [facility] [address]-56 20 MG Orally Once a day Feb 19, 2016 Aug 17, 2016 Active 1 tablet Hydrocodone-Acetaminophen [facility] [address]-51 10-325 MG Orally every 6 hrs May 16, 2016 Active 1 tablet as needed Social History Social History Element Qualifiers Date Reported Illicit Drugs . none Apr 16, 2016 Diet: no. Apr 16, 2016 Alcohol Screening: . Points: 0 Apr 16, 2016 Tobacco Use: . Are you a:: never smoker Apr 16, 2016 Marital Status: . Apr 16, 2016 Caffeine: yes. frequency:3 cup Apr 16, 2016 Exercise: no. Apr 16, 2016 Alcohol: no. Apr 16, 2016 Occupation: . retired Apr 16, 2016 Vital Signs Date/Time: Apr 16, 2016 Weight 157.1 lbs Height 58 in Temperature 98.0 F Cardiac Monitoring Heart Rate 72 /min Blood Pressure Diastolic 70 mm Hg Blood Pressure Systolic 118 mm Hg Summary Purpose eClinicalWorks Submission
--- OUTSIDE RECORDS SUMMARY | 2018-07-06 09:58 | XMS REPORT ---
Author Author Ajith Lopez eClinicalWorks Address Unknown Phone Unavailable Care Team Providers Care Revenue Collector Name Role Phone Ajith Lopez CP Unavailable Encounters Encounter Location Date Triplicate-- Hydrocodone 06/01/14 Ajith Lopez MD May 29, 2014 PT ADDED 08/14 Ajith Lopez MD Jul 30, 2016 DEXA Aijth Lopez MD Apr 09, 2016 6 WK F/U Ajith Lopez MD Jul 31, 2014 one month follow up Ajith Lopez MD Apr 16, 2016 MRI Ajith Lopez MD Aug 13, 2014 B-12 Inj Ajith Lopez MD May 05, 2016 RA study Ajith Lopez MD Jul 31, 2014 Unknown Ajith Lopez MD May 07, 2016 Estuardo Lopez MD Aug 03, 2014 2m [...] acid Ajith Lopez MD Jan 30, 2014 machine scallop cutter pain Ajith Lopez MD Apr 29, 2014 Refill- Hydrocodone Ajith Lopez MD May 01, 2014 3m fu Ajith Lopez MD November 01, 2013 MRI Ajith Lopez MD December 01, 2013 2m f/u Ajith Lopez MD January 03, 2014 refill folic acid Ajith Lopez MD October 22, 2014 2m f/u Ajith Lopez MD October 05, 2014 Ronnie Lpoez MD May 02, 2014 MRI Bi Wrist Ajith Lopez MD May 05, 2014 DEXA Ajith Lopez MD January 05, 2015 MRI Ajith Lopez MD January 26, 2015 Refill/Flare Ajith Lopez MD January 17, 2015 2m f/u Ajith Lopez MD January 04, 2015 Hydrocodone Issue Ajith Lopez MD October 25, 2014 oren Lopez MD December 08, 2014 Medication not sent Ajith Lopez MD December 08, 2014 Ronnie Lopez MD December 08, 2014 2m f/u Ajith Lopez MD Mar 06, 2015 MRI Ajith Lopez MD Feb 25, 2015 2m f/u Ajith Lopez MD Feb 05, 2015 refill-- Plaquenil Ajith Lopez MD Apr 27, 2015 PLAQUENIL Ajith Lopez MD May 15, 2015 Oren Lopez MD Feb 05, 2015 1 MTH [...] ICD-9 Code Onset Dates Condition Status Problem Rheumatoid arthritis with rheumatoid factor of multiple sites without organ or systems involvement M05.79 Active Problem Other correction (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 therapy Z79.899 Active Problem Rash R21 Active Problem Age-related osteoporosis without current pathological fracture M81.0 Active Social History Social History Element Qualifiers [...] 2016 Occupation: . retired Apr 16, 2016 Summary Purpose eClinicalWorks Submission
--- OUTSIDE RECORDS SUMMARY | 2018-07-06 09:58 | XMS REPORT ---
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 none Feb 19, 2016 Diet: no. Feb 19, 2016 Alcohol Screening: . Points: 0 Feb 19, 2016 Tobacco Use: . Are you a:: never smoker Feb 19, 2016 Marital Status: . Feb 19, 2016 Caffeine: yes. frequency:3 cup Feb 19, 2016 Exercise: no. Feb 19, 2016 Alcohol: no. Feb 19, 2016 Occupation: . retired Feb 19, 2016 Summary Purpose eClinicalWorks Submission
--- OUTSIDE RECORDS SUMMARY | 2018-07-06 09:58 | XMS REPORT ---
Author Author Tiffanie Valles [facility] eClinicalWorks Address Unknown Phone Unavailable Care Team Providers Care Direct Selling Counselor Name Role Phone Tiffanie Valles Unavailable Allergies, Adverse Reactions, Alerts Substance Reaction Event Type Methotrexate Info Not Available Non Drug Allergy azulfidine Info Not Available Non Drug Allergy Encounters Encounter Location Date Triplicate-- Hydrocodone 06/01/14 Ajith Lopez MD May 29, 2014 F/U Ajith Lopez MD Aug 14, 2016 PT ADDED 08/14 Ajith Lopez MD Jul 30, 2016 DEXA Ajith Lopez MD Apr 09, 2016 6 WK F/U Ajith Lopez MD Jul 31, 2014 one month follow up Ajith Lopez MD Apr 16, 2016 MRI Ajith Lopez MD Aug 13, 2014 B-12 Inj Ajith Lopez MD May 05, 2016 RA study Ajith Lopez MD Jul 31, 2014 Unknown Ajith Lopez MD May 07, 2016 Etsuardo Lopez MD Aug 03, 2014 2m f/u [...] acid Ajith Lopez MD Jan 30, 2014 paper winder pain Ajith Lopez MD Apr 29, 2014 [...] Ronnie Lopez MD December 08, 2014 2m bernice/rusty Lopez MD Mar 06, 2015 MRI Ajith [...] INJECTION Ajith Lopez MD Feb 04, 2016 Ronnie Lopez MD Feb 05, 2016 Problems Problem Type Condition ICD-9 Code Onset Dates Condition Status Problem Rheumatoid arthritis with rheumatoid factor of multiple sites without organ or systems involvement M05.79 Active Problem Other manager terminal (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 therapy Z79.899 Active Problem Rash R21 Active Assessment Other penitentiary (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 therapy Z79.899 Active Problem Age-related osteoporosis without current pathological fracture M81.0 Active Assessment Rheumatoid arthritis with rheumatoid factor of multiple sites without organ or systems involvement M05.79 Active Medications Medication Code System Code Instructions Start Date End Date Status Dosage [facility] [address]-45 10-325 MG Orally every 6 hrs Active 1 tablet as needed Aspirin [facility] [address]-84 81 MG Orally Once a day Active 1 tablet Humira [facility] 72171074650 40 Active INJECT 0.8ML SUBCUTANEOUSLY EVERY 2 WEEKS Folic Acid [facility] 62622694636 1 Orally Once a day Active 1 tablet Plaquenil [facility] 47139303916 200 Orally twice a day Active take 1 tablet Medrol Dose Armand [facility] 15846357722 4mg Orally once a day Aug 14, 2016 Aug 20, 2016 Active as directed Atenolol [facility] [address]-38 25 MG Orally Once a day Active 1 tablet Arava [facility] [address]-62 20 MG Orally Once a day Feb 19, 2016 Active 1 tablet PredniSONE [facility] [address]-81 2.5 MG Orally Once a day Active 1 tablet with food or milk Social History Social History Element Qualifiers Date Reported Illicit Drugs . none Aug 14, 2016 Diet: no. Aug 14, 2016 Alcohol Screening: . Points: 0 Aug 14, 2016 Tobacco Use: . Are you a:: never smoker Aug 14, 2016 Marital Status: . Aug 14, 2016 Caffeine: yes. frequency:3 cup Aug 14, 2016 Exercise: no. Aug 14, 2016 Alcohol: no. Aug 14, 2016 Occupation: . retired Aug 14, 2016 Vital Signs Date/Time: Aug 14, 2016 Weight 155 lbs Height 58 in Temperature 97.6 F Cardiac Monitoring Heart Rate 74 /min Blood Pressure Diastolic 72 mm Hg Blood Pressure Systolic 118 mm Hg Summary Purpose eClinicalWorks Submission
--- OUTSIDE RECORDS SUMMARY | 2018-07-06 09:58 | XMS REPORT ---
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 Ajith Lopez MD Apr 29, 2014 [...] Lopez MD January 17, 2015 2m f/u Aijth Lopez MD January 04, 2015 Hydrocodone Issue [...] Code Onset Dates Condition Status Problem Other residential (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 therapy Z79.899 Active Problem Age-related osteoporosis without current pathological fracture M81.0 Active Problem Rheumatoid arthritis with rheumatoid factor of multiple sites without organ or systems involvement M05.79 Active Assessment Rheumatoid arthritis with rheumatoid factor of multiple sites without organ or systems involvement M05.79 Active Assessment 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.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 Active Medications Medication Code System Code Instructions Start Date End Date Status Dosage Atenolol [facility] [address]-52 25 MG Orally Once a day Active 1 tablet Tizanidine HCl [facility] [address]-85 2 MG Orally prn Active 1 tablet as needed Plaquenil [facility] 50385112243 200 Active take one tablet by mouth twice a day PredniSONE [facility] [address]-80 2.5 MG Orally Once a day Active 1 tablet with food or milk Aspirin [facility] [address]-97 81 MG Orally Once a day Active 1 tablet Humira [facility] 72547828495 40 Active INJECT 0.8ML SUBCUTANEOUSLY EVERY 2 WEEKS Folic Acid [facility] 02118976931 1 Orally Once a day Active 1 tablet Arava [facility] [address]-89 20 MG Orally Once a day Feb 19, 2016 Aug 17, 2016 Active 1 tablet Hydrocodone-Acetaminophen [facility] [address]-24 10-325 MG Orally every 6 hrs Active 1 tablet as needed Fosamax [facility] [address]-38 70 MG Orally once a week Active 1 tablet Social History Social History [...] 2016 Occupation: . retired Feb 19, 2016 Vital Signs Date/Time: Feb 19, 2016 Weight 156 lbs Height 57 in Temperature 98.2 F Cardiac Monitoring Heart Rate 72 /min Blood Pressure Diastolic 74 mm Hg Blood Pressure Systolic 116 mm Hg Summary Purpose eClinicalWorks Submission
--- OUTSIDE RECORDS SUMMARY | 2018-07-06 09:58 | XMS REPORT ---
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
--- OUTSIDE RECORDS SUMMARY | 2018-07-06 09:58 | XMS REPORT ---
[facility] Address Unknown Phone Unavailable Care Team Providers Care Carton Repairer Name Role Phone Mary HOLLEY Unavailable Unavailable Problems This patient has no known problems. Allergies, Adverse Reactions, Alerts This patient has no known allergies or adverse reactions. Medications This patient has no known medications. Results Test Description Test Time Test Comments Text Results Atomic Results Result Comments CHEST 2 VIEWS 2018-07-02 13:16:00 [place] [address] Patient Name: ESTUARDO FERNANDEZ MR #: [id number] : 1945 Age/Sex: 73/F Req #: [id number] Adm Physician: Ordered by: CHILO HOLLEY MD Report #: [id number] Location: OR Room/Bed: Procedure: [id number] DX/CHEST 2 VIEWS Exam Date: 07/02/18 Exam Time: 1200 REPORT STATUS: Signed Frontal and lateral views of the chest. HISTORY: PREOP PROTOCOL COMPARISON: None available. DISCUSSION: Soft tissue attenuation partially limits sensitivity of the exam. Lungs: Mildly prominent nonspecific diffuse interstitial markings. No evidence of a consolidative pneumonia or pulmonary alveolar edema. Pleura: No pleural effusion or pneumothorax. Heart and mediastinum: The cardiomediastinal silhouette appears unremarkable. Bones: No acute osseous lesion. Partially visualized cervical spine fixation hardware and the left neck metallic surgical clips. IMPRESSION: No acute radiographic abnormality. Signed by: Dr. Leopoldo Madison D.O., M.M.M. on 07/02/2018 1:18 PM Dictated By: LEOPOLDO MADISON DO 17 Transcribed By: RODRIGO on 07/02/181317 COPY TO: CHILO HOLLEY MD
--- OUTSIDE RECORDS SUMMARY | 2018-07-06 09:58 | XMS REPORT ---
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
[2018-07-06 14:10] VITALS: BP 114/58
--- NOTE | 2018-07-06 14:18 | Operative Report ---
DATE OF PROCEDURE: July 06, 2018 TRANSIT MIX OPERATOR: None PREOPERATIVE DIAGNOSIS: Postmenopausal bleeding. POSTOPERATIVE DIAGNOSIS: Postmenopausal bleeding. PROCEDURES PERFORMED 1. Hysteroscopy. 2. Dilatation and curettage. ANESTHESIA: General. ESTIMATED BLOOD LOSS: Minimal. COMPLICATIONS: Uterine perforation. FINDINGS: The patient has a small mid-plane uterus with severely stenotic internal os of cervix. SPECIMENS: Endometrial curettings. INDICATIONS: The patient is a 73-year-old female with postmenopausal bleeding and unable to obtain endometrial biopsy in the office secondary to stenotic cervix. PROCEDURE NOTE: Prior to the procedure, the risks, benefits, indications and alternatives were discussed, and the patient agreed to proceed. Following anesthesia, the patient was placed in the modified dorsal lithotomy position in the [facility], and prepping and draping were performed in the typical sterile fashion . A time out was done. A weighted speculum was then placed in the vagina. The cervix was grasped with a single-tooth tenaculum. The cervix was sequentially dilated, and the hysteroscope was inserted with the findings as previously noted. A sharp curettage was performed within the endometrial cavity, and the endometrial tissue was sent to pathology. All instruments were then removed from the patient. The tenaculum site was noted to be hemostatic. The patient was moved to the recovery room in stable condition. All sponge, needle and instrument counts were correct x2. Job#: [id number]
== END | disposition home or self-care (01) ==
LOC: OR 09:47
PROVIDERS: ATTEND Obstetrics & Gynecology Obstetrics
DX: N88.2 Stricture and stenosis of cervix uteri (principal); R93.89 Abnormal findings on diagnostic imaging of other specified body structures; I69.398 Other sequelae of cerebral infarction; M06.9 Rheumatoid arthritis, unspecified; Z91.040 Latex allergy status; Z91.048 Other nonmedicinal substance allergy status; Z01.810 Encounter for preprocedural cardiovascular examination; Z01.812 Encounter for preprocedural laboratory examination; Z01.818 Encounter for other preprocedural examination
CPT/HCPCS: 36415; 58558; 71046; 85025; 88305; 93005; J1100; J1885; J2001; J2250; J2704

== ENCOUNTER 2021-12-11 15:08 | Observation (INO) | payer MEDICARE ==
[~2021-12-11] VITALS: Ht 149.9 cm; Wt 54.9 kg
[~2021-12-11 15:08] MED LIST changes: -DEXAMETHASONE SOD PHOS INJ 4 MG/ML VIAL ONE; -FENTANYL CITRATE/PF 100MCG/2 ML INJ ONE; -KETOROLAC TROMETHAMINE 30 MG/ML VIAL ONE; -LIDOCAINE HCL 2% LOCAL INJ 5 ML SDV VIAL INJ ONE; -MIDAZOLAM HCL 2 MG/2 ML VIAL ONE; -PROPOFOL IV EMULSION 10 MG/ML 20 ML VIAL ONE; -SEVOFLURANE INHAL SOLN 250 ML PEN BTL ONE
[2021-12-11 15:45] LABS: BASOPHILS % 0.4 % (0.0-1.0); EOSINOPHILS # (AUTO) 0.2 (0.0-0.4); EOSINOPHILS % 2.3 % (0.0-6.0); HEMATOCRIT 41.4 % (34.2-44.1); MEAN CORPUSCULAR HGB CONC 31.4 g/dL (31-35); MEAN CORPUSCULAR VOLUME 98.8 fL (81-99); MONOCYTES # (AUTO) 0.6 (0.2-0.8); MONOCYTES % 7.6 % (4.4-11.3); NEUTROPHILS # (AUTO) 4.8 (2.1-6.9); NEUTROPHILS % 63.2 % (38.7-80.0); PLATELET COUNT 234 x10e3/uL (140-360); RED BLOOD COUNT 4.19 x10e6/uL (3.6-5.1); RED CELL DISTRIBUTION WIDTH 15.9 % (11.7-14.4)
[2021-12-11 16:16] LABS: INR 0.98; PROTHROMBIN TIME 13.9 seconds (11.9-14.5)
[2021-12-11 16:31] LABS: ALBUMIN 3.3 g/dL (3.5-5.0); ANION GAP 13.9 mmol/L (8-16); CALCIUM 8.8 mg/dL (8.4-10.2); CREATININE, SERUM 0.69 mg/dL (0.57-1.11); MAGNESIUM 1.8 MG/DL (1.3-2.1); POTASSIUM 3.9 mmol/L (3.5-5.1)
[2021-12-11 16:39] LABS: CREATINE KINASE MB 2.7 ng/mL (0-5.0)
[2021-12-11] MEDS ORDERED: Morphine 2mg Syringe 2 MG/ML SYR IV PRN (17:15)
[2021-12-11] MEDS ORDERED: ONDANSETRON HCL INJ 2MG/ML 2ML 2 MG/ML VIAL IV PRN (17:15)
[2021-12-11] MEDS: FAMOTIDINE 20 MG/2 ML VIAL IV SCH (17:34)
[2021-12-11 20:30] VITALS: BP 140/98
[2021-12-11] MEDS ORDERED: PREDNISONE5 MG PO (21:14)
[2021-12-11] MEDS ORDERED: SULFASALAZINE500 MG PO (21:14)
[2021-12-11] MEDS ORDERED: ATORVASTATIN CA20 MG PO (21:14)
[2021-12-11] MEDS ORDERED: ELIQUIS5 MG PO (21:14)
[2021-12-11] MEDS ORDERED: METOPROLOL TART25 MG PO (21:14)
[2021-12-11] MEDS ORDERED: FOLIC ACID0.4 MG PO (21:14)
[2021-12-11 21:15] VITALS: BP 140/98
[2021-12-11 21:33] VITALS: BP 140/98
[2021-12-12 00:16] VITALS: BP 115/55
[2021-12-12 02:44] LABS: BASOPHILS % 0.7 % (0.0-1.0); EOSINOPHILS # (AUTO) 0.2 (0.0-0.4); EOSINOPHILS % 3.2 % (0.0-6.0); HEMATOCRIT 36.9 % (34.2-44.1); HEMOGLOBIN 11.8 g/dL (12.0-16.0); LYMPHOCYTES # (AUTO) 2.2 (1.0-3.2); LYMPHOCYTES % 37.1 % (18.0-39.1); MEAN CORPUSCULAR HEMOGLOBIN 31.3 pg (28-32); MEAN CORPUSCULAR VOLUME 97.9 fL (81-99); MONOCYTES # (AUTO) 0.5 (0.2-0.8); MONOCYTES % 8.9 % (4.4-11.3); NEUTROPHILS % 49.9 % (38.7-80.0); PLATELET COUNT 222 x10e3/uL (140-360); RED BLOOD COUNT 3.77 x10e6/uL (3.6-5.1); RED CELL DISTRIBUTION WIDTH 15.7 % (11.7-14.4)
[2021-12-12 03:07] LABS: CREATINE KINASE MB 1.6 ng/mL (0-5.0)
[2021-12-12 03:21] LABS: ALBUMIN 2.9 g/dL (3.5-5.0); ANION GAP 12.7 mmol/L (8-16); CALCIUM 8.3 mg/dL (8.4-10.2); CHOL/HDL RATIO 2.3 (3.0-3.6); CREATININE, SERUM 0.53 mg/dL (0.57-1.11); POTASSIUM 3.7 mmol/L (3.5-5.1)
[2021-12-12 05:46] VITALS: BP 122/50
[2021-12-12] MEDS: FAMOTIDINE 20 MG/2 ML VIAL IV SCH (06:11)
[2021-12-12 08:29] VITALS: BP 125/59
[2021-12-12 08:30] VITALS: BP 125/59
[2021-12-12 11:18] VITALS: BP 124/53
[2021-12-12 11:40] LABS: CREATINE KINASE MB 1.3 ng/mL (0-5.0)
[2021-12-12] MEDS ORDERED: SULFASALAZINE 500 MG TAB PO SCH (15:00)
[2021-12-12] MEDS ORDERED: HYDROCODONE/APAP 5MG-325MG TAB PO ONE (15:00)
[2021-12-12 16:00] VITALS: BP 124/49
[2021-12-12] MEDS ORDERED: METOPROLOL TARTRATE 25 MG TAB PO SCH (17:00)
[2021-12-12] MEDS ORDERED: ENOXAPARIN SOD INJ 40 MG/0.4 ML SYR SC SCH (17:00)
[2021-12-12] MEDS ORDERED: APIXABAN 5 MG TABLET PO SCH (17:00)
[2021-12-12] MEDS ORDERED: ASPIRIN EC81 MG PO (18:13)
[2021-12-12] MEDS ORDERED: FAMOTIDINE20 MG PO (18:13)
[2021-12-12] MEDS ORDERED: ONDANSETRON HCL 4 MG ORAL DISINTEGRATING TAB PO PRN (19:30)
[2021-12-12] MEDS ORDERED: PRAVASTATIN 20 MG TAB PO SCH (21:00)
[2021-12-12] MEDS ORDERED: ATORVASTATIN 40 MG TAB PO SCH (21:00)
[2021-12-13] MEDS ORDERED: FAMOTIDINE 20 MG TAB PO SCH (07:30)
[2021-12-13] MEDS ORDERED: NON-FORMULARY MEDICATION (Folic Acid* 1 MG) PO SCH (09:00)
[2021-12-13] MEDS ORDERED: PREDNISONE 5 MG TAB PO SCH (09:00)
[2021-12-13] MEDS ORDERED: ASPIRIN 81 MG ENTERIC COATED PO SCH (09:00)
[2021-12-13] MEDS ORDERED: FOLIC ACID 1 MG TAB PO SCH (09:00)
== END 2021-12-12 19:37 | disposition home or self-care (01) ==
LOC: ER 15:14 → ERHOLD 17:07 → MED/SURG2 19:45
PROVIDERS: ADMIT Internal Medicine; ATTEND Internal Medicine
DX: R07.89 Other chest pain (principal); I11.9 Hypertensive heart disease without heart failure; E78.5 Hyperlipidemia, unspecified; M06.9 Rheumatoid arthritis, unspecified; Z20.822 Contact with and (suspected) exposure to COVID-19; I69.351 Hemiplegia and hemiparesis following cerebral infarction affecting right dominant side; I25.10 Atherosclerotic heart disease of native coronary artery without angina pectoris; Z86.16 Personal history of COVID-19
CPT/HCPCS: 36415 ×2; 70450; 71045; 80053 ×2; 80061; 82550 ×2; 82553 ×2; 83735; 83880; 84484 ×2; 85025 ×2; 85610; 85730; 93005; 99284; G0378 ×2; U0002

== ENCOUNTER → 2023-05-29 | Outpatient (REF) | payer MEDICARE ==
[~2023-05-29] MED LIST changes: +ASPIRIN EC81 MG PO; +ATORVASTATIN CA20 MG PO; +ELIQUIS5 MG PO; +FAMOTIDINE20 MG PO; +FOLIC ACID0.4 MG PO; +METOPROLOL TART25 MG PO; +PREDNISONE5 MG PO; +SULFASALAZINE500 MG PO
== END ==
LOC: RAD 11:28
PROVIDERS: ATTEND Internal Medicine Rheumatology
DX: M05.79 Rheumatoid arthritis with rheumatoid factor of multiple sites without organ or systems involvement (principal); G89.29 Other chronic pain; Z79.899 Other long term (current) drug therapy; W19.XXXA Unspecified fall, initial encounter
CPT/HCPCS: 72050; 72100